=== PATIENT | male | born 1960 | race African-American/Black ===

== ENCOUNTER 2018-10-16 12:50 | Emergency (ER) | payer OTHER ==
--- NOTE | 2018-10-16 13:16 | PDOC ---
Rapid Medical Evaluation Time Seen by Provider: 10/16/18 13:12 Medical Evaluation: Allergies Allergy/AdvReac Type Severity Reaction Status Date / Time No Known Allergies Allergy Verified 01/21/16 15:58 10/16/18 13:13 This patient had brief in-person evaluation in triage cc: back pain exacerbation chronic states pain is worse unable to move. ' No recent injuries PE: NAD unlabored breathing no mid spinal tenderness, no cva tenderness orders: u/a This patient will proceed to the Ed for further evaluation Discharge Disposition - Diagnosis Back pain - Referrals - Patient Instructions - Post Discharge Activity
[2018-10-16 13:17] VITALS: TEMP 97.9; BMI 30.7
--- NOTE | 2018-10-16 15:13 | PDOC ---
History of Present Illness - General Chief Complaint: Pain, Acute Stated Complaint: LOWER BACK PAIN Time Seen by Provider: 10/16/18 13:12 - History of Present Illness Initial Comments: The pt is a 58M w/ a history of HTN, GERD, COPD, chronic back pain 2/2 slipped disc, reported cardiac arrest x2 s/p ROSC who presents for evaluation of 2 days of R back/flank pain. He reports the pain is not typical of his normal back pain. It is sharp/cramping, non-radiating, intermittent, non-positional, is not exacerbated or alleviated by anything he can identify. Denies fevers/chills, N/V/C/D, dizziness, chest pain, dysuria, hematuria, blood in his stool, or changes in sensation. PMH: HTN, GERD, COPD PSH: VIHR x4 Allergies: Denies SH: 1/2 ppd tobacco, almost daily EtOH use (Gin today) endorses shakes but denies withdraw seizures, denies drug use 10/16/18 15:13 Past History - Past Medical History Allergies/Adverse Reactions: Allergies Allergy/AdvReac Type Severity Reaction Status Date / Time No Known Allergies Allergy Verified 01/21/16 15:58 Home Medications: Ambulatory Orders Amlodipine Besylate 10 mg PO DAILY #14 tablet 02/17/15 Aspirin [ASA -] 81 mg PO DAILY 02/17/15 Hydrochlorothiazide 25 mg PO DAILY #14 tablet 02/17/15 Omeprazole [Prilosec (RX)] 20 mg PO DAILY #14 capsule 02/17/15 Ramipril 5 mg PO DAILY #14 capsule 02/17/15 COPD: No GI Disorders: Yes (acid reflux) HTN: Yes Other medical history: herniated disc - Surgical History Abdominal Surgery: Yes (umbilical hernia) Appendectomy: Yes - Immunization History Immunization Up to Date: Yes - Suicide/Smoking/Psychosocial Hx Smoking History: Never smoked Have you smoked in the past 12 months: No Number of Cigarettes Smoked Daily: 20 Information on smoking cessation initiated: No 'Breaking Loose' booklet given: 01/21/16 Hx Alcohol Use: No Drug/Substance Use Hx: No Substance Use Type: Alcohol Review of Systems - Review of Systems Able to Perform ROS?: Yes Comments:: GENERAL/CONSTITUTIONAL: No fever or chills. No weakness HEAD, EYES, EARS, NOSE AND THROAT: No change in vision. No ear pain or discharge. No sore throat CARDIOVASCULAR: No chest pain or shortness of breath RESPIRATORY: Denies cough, hemoptysis GASTROINTESTINAL: No nausea, vomiting, diarrhea or constipation GENITOURINARY: No dysuria, frequency, or change in urination MUSCULOSKELETAL: +chronic back pain SKIN: No rash NEUROLOGIC: No headache, vertigo, loss of consciousness, or change in strength/ sensation ENDOCRINE: No increased thirst. No abnormal weight change HEMATOLOGIC/LYMPHATIC: No anemia, easy bleeding, or history of blood clots ALLERGIC/IMMUNOLOGIC: No hives or skin allergy 10/16/18 15:12 Is the patient limited Italian proficient: No *Physical Exam - Vital Signs Last Vital Signs Temp Pulse Resp BP Pulse Ox 97.9 F 95 H 16 119/78 100 10/16/18 13:13 10/16/18 13:13 10/16/18 13:13 10/16/18 13:13 10/16/18 13:13 - Physical Exam Comments: GENERAL: Awake, alert, and oriented to person/place/time, in no acute distress HEAD: No signs of trauma, normocephalic, atraumatic EYES: PERRLA, EOMI, sclera anicteric, conjunctiva clear ENT: Hearing grossly normal, nares patent, oropharynx clear without exudates. Moist mucosa LUNGS: No distress, speaks full sentences, clear to auscultation bilaterally HEART: Regular rate and rhythm, normal S1 and S2, no murmurs appreciated, peripheral pulses normal and equal bilaterally ABDOMEN: soft, protuberant, abdominal diastasis, R flank TTP, no CVA TTP b/l EXTREMITIES: Normal inspection, Normal range of motion, no edema. No clubbing or cyanosis NEUROLOGICAL: Cranial nerves II through XII grossly intact. Normal speech, no focal sensorimotor deficits SKIN: Warm, Dry 10/16/18 15:12 ED Treatment Course - LABORATORY CBC & Chemistry Diagram: 10/16/18 16:10 10/16/18 16:10 Medical Decision Making - Medical Decision Making The pt is a 58M w/ a history of HTN, HLD, COPD, previous cardiac arrest x2, and chronic low back pain who presents for evaluation of new-onset back pain for approximately 2 weeks that is more acute over the last 2 days. Ddx includes nephrolithiasis, UTI, pyelonephritis, cholecystitis/cholelithiasis , AD, AAA ED Course CMP, CBC, UA, UCx CT Spiral Ofirmev 10/16/18 16:16 UA w/o hematuria or evidence of UTI 10/16/18 16:31 CT A&P w/o contrast 10/16/18 Impression: There is no evidence of hydroureteronephrosis, renal or ureteral stone, bilaterally. No gross urinary bladder stone or wall thickening is identified. Enlarged prostate gland. Diverticulosis coli without evidence of acute diverticulitis. Small hiatus hernia. Nonvisualization of the appendix. 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 that were prescribed by his PCP that are waiting at his pharmacy Discharge instructions and return precautions given Pt in agreement and verbalized understanding Dispo: home 10/16/18 18:14 *DC/Admit/Observation/Transfer Diagnosis at time of Disposition: Back pain Qualifiers: Back pain location: thoracic back pain Chronicity: acute Back pain laterality: right Qualified Code(s): M54.6 - Pain in thoracic spine - Discharge Dispostion Disposition: HOME Condition at time of disposition: Stable Decision to Admit order: No - Referrals Referrals: [facility] [Provider Group] - Patient Instructions Printed Discharge Instructions: DI for Thoracic Back Pain Additional Instructions: You were seen in the Emergency Department for evaluation of back pain. Your labs were unremarkable and your imaging was negative for acute pathology. Be sure to fill your prescriptions, take as directed, and follow up with your primary care provider within the next week. Review the handout provided at discharge. Return to the Emergency Department if you develop fevers/chills, chest pain, shortness of breath, abdominal pain, dizziness, nausea/vomiting, pain with urination, blood in your urine or stool, worsening symptoms, or any new/concerning symptoms. - Post Discharge Activity
[2018-10-16] MEDS ORDERED: ACETAMINOPHEN 1000 MG/100 ML VIAL (NON FORMULARY) IVPB ONE (15:47)
[2018-10-16] MEDS ORDERED: ACETAMINOPHEN INJECTION 100 ML IVPB ONE (16:00)
[2018-10-16 16:03] LABS: URINE APPEARANCE CLEAR; URINE BILIRUBIN NEGATIVE (NEGATIVE); URINE COLOR YELLOW; URINE GLUCOSE (UA) NEGATIVE (NEGATIVE); URINE KETONE NEGATIVE (NEGATIVE); URINE LEUK ESTERASE NEGATIVE (NEGATIVE); URINE NITRITE NEGATIVE (NEGATIVE); URINE PROTEIN NEGATIVE (NEGATIVE); URINE UROBILINOGEN 0.2 mg/dL (0.2-1.0)
[2018-10-16 16:46] LABS: BASO % 1.1 % (0-2.0); EOS % 1.7 % (0-4.5); HEMATOCRIT 37.9 % (35.4-49); HEMOGLOBIN 12.5 GM/dL (11.7-16.9); LYMPH % 54.6 % (8-40); MEAN CELL VOLUME 78.6 fl (80-96); MEAN PLT VOLUME 8.4 fl (7.5-11.1); MONO % 13.9 % (3.8-10.2); NEUT % 28.7 % (42.8-82.8); PLATELET COUNT 291 K/MM3 (134-434); RBC 4.82 M/mm3 (4.00-5.60); RDW 20.9 % (11.9-15.9); WHITE BLOOD COUNT 3.7 K/mm3 (4.0-10.0)
[2018-10-16 16:49] LABS: ALBUMIN 3.6 g/dl (3.4-5.0); BILIRUBIN,TOTAL 0.2 mg/dL (0.2-1); BLOOD UREA NITROGEN 12.2 mg/dL (7-18); CALCIUM 8.7 mg/dL (8.5-10.1); CREATININE 1.2 mg/dL (0.55-1.3); POTASSIUM 3.5 mmol/L (3.5-5.1); TOT PROT 8.1 g/dl (6.4-8.2)
--- NOTE | 2018-10-16 17:39 | PDOC ---
Documentation entered by Zoie Wisdom SCRIBE, acting as scribe for Alcides Luna MD. Alcides Luna MD: This documentation has been prepared by the Alyx licona Brenda, SCRIBE, under my direction and personally reviewed by me in its entirety. I confirm that the documentation accurately reflects all work, treatment, procedures, and medical decision making performed by me. Attending Attestation - Resident Resident Name: ElanchemoNiko - ED Attending Attestation I have performed the following: I have examined & evaluated the patient, The case was reviewed & discussed with the resident, I agree w/resident's findings & plan, Exceptions are as noted - HPI HPI: 10/16/18 16:56 The patient is a 58 year old male, with a significant PMH of HTN, GERD, COPD, chronic back pain due to a slipped disc and cardiac arrest x2 (unclear cause) who presents to the emergency department with 2 weeks of intermittent right flank/back pain that got worse this morning. He reports the pain to be sharp/ cramping, non-radiating nor non-positional. The patient reports the pain to have no aggravating or alleviating factors. He also reports this pain to be different and not associated with his regular chronic back pain which is usually right in the middle of his back. The patient denies chest pain, shortness of breath, headache, focal weakness/ numbness or dizziness. Denies fever, chills, nausea, vomiting, diarrhea and constipation. Denies dysuria, frequency, urgency and hematuria. Allergies: NKA Past surgical history: VIHR x4 Social history: 1 to 2 packs per day of tobacco, almost daily EtOH use (Gin today) endorses shakes but denies withdrawal seizures. No drug use. - Physicial Exam PE: 10/16/18 16:57 GENERAL: Awake, alert, and fully oriented, in no acute distress HEAD: No signs of trauma EYES: PERRLA, EOMI, sclera anicteric, conjunctiva clear ENT: Auricles normal inspection, hearing grossly normal, nares patent, oropharynx clear without exudates. Moist mucosa NECK: Normal ROM, supple, no lymphadenopathy, JVD, or masses LUNGS: Breath sounds equal, clear to auscultation bilaterally. No wheezes, and no crackles HEART: Regular rate and rhythm, normal S1 and S2, no murmurs, rubs or gallops ABDOMEN: Soft, nontender, normoactive bowel sounds. No guarding, no rebound. No masses EXTREMITIES: Normal range of motion, no edema. No clubbing or cyanosis. No cords , erythema, or tenderness BACK: No midline spinal tenderness in cervical/thoracic/lumbar region NEUROLOGICAL: Normal speech, cranial nerves intact, negative pronator drift, 5/ 5 strength in all 4 extremities, normal sensation to light touch in all 4 extremities, normal cerebellar exam, normal gait, normal reflexes and tone SKIN: Warm, Dry, normal turgor, no rashes or lesions noted. - Medical Decision Making 10/16/18 16:29 58yo M presents to the ED with 1 weeks of R sided flank pain that became suddenly worse this morning Vitals wnl Exam with no CVAT, pt appears comfortable DDx includes renal colic vs MSK pain vs aortic dissection Low likelihood aortic dissection as BP in both LE and pulses equal, pain has been ongoing for 2 weeks, and BP is wnl Will obtain labs, UA, CTAP non con, and reassess 10/16/18 17:38 Labs/UA wnl CTAP done, read pending Pain well controlled, pt well appearing
[2018-10-16 18:40] VITALS: BP 122/71; PULSE 89
[2018-10-16 22:00] LABS: ANISOCYTOSIS 1+; TARGET CELLS FEW
== END 2018-10-16 18:30 | disposition home or self-care (01) ==
LOC: JER 12:50
PROC: 3E033NZ Introduction of Analgesics, Hypnotics, Sedatives into Peripheral Vein, Percutaneous Approach (ICD-10-PCS; principal; 2018-10-16)
DX: M51.27 Other intervertebral disc displacement, lumbosacral region (principal); M54.6 Pain in thoracic spine; I10 Essential (primary) hypertension; E78.5 Hyperlipidemia, unspecified; J44.9 Chronic obstructive pulmonary disease, unspecified
CPT/HCPCS: 36415; 74176-TC; 80053; 81003; 85025; 87086; 96374; 99283-25; J0131

== ENCOUNTER 2020-03-21 16:20 | Inpatient (IN) | payer OTHER ==
[2020-03-21 19:12] LABS: BASO % 2.4 % (0-2.0); EOS % 0.8 % (0-4.5); HEMATOCRIT 41.9 % (35.4-49); HEMOGLOBIN 14.3 GM/dL (11.7-16.9); LYMPH % 7.8 % (8-40); MCH 32.3 pg (25.7-33.7); MEAN CELL VOLUME 94.9 fl (80-96); MEAN PLT VOLUME 9.9 fl (7.5-11.1); PLATELET COUNT 270 K/MM3 (134-434); RBC 4.41 M/mm3 (4.00-5.60); WHITE BLOOD COUNT 9.2 K/mm3 (4.0-10.0)
[2020-03-21 19:15] LABS: INR 1.15 (0.83-1.09); PROTHROMBIN TIME (PATIENT) 13.8 SEC (9.7-13.0)
[2020-03-21 19:18] LABS: ACTIVATED PTT 31.7 SECONDS (25.2-36.5)
[2020-03-21 19:36] LABS: CHLORIDE 97 mmol/L (98-107); SODIUM 137 mmol/L (136-145)
[2020-03-21 19:40] LABS: CALCIUM 9.6 mg/dL (8.5-10.1)
[2020-03-21 19:41] LABS: ALBUMIN 2.8 g/dl (3.4-5.0); BLOOD UREA NITROGEN 12.2 mg/dL (7-18); CO2 31 mmol/L (21-32); GLUCOSE,RANDOM 101 mg/dL (74-106)
[2020-03-21] MEDS ORDERED: SODIUM CHLORIDE 0.9% 500 ML INFUS.BAG IV ONE (19:41)
[2020-03-21 19:43] LABS: CREATININE 1.1 mg/dL (0.55-1.3); SGOT/AST 453 U/L (15-37); SGPT/ALT 183 U/L (13-61)
[2020-03-21 19:45] LABS: BILIRUBIN,TOTAL 1.4 mg/dL (0.2-1); TOT PROT 7.5 g/dl (6.4-8.2)
[2020-03-21 19:46] LABS: ALK PHOS 222 U/L (45-117)
[2020-03-21] MEDS ORDERED: AZITHROMYCIN IVPB 500 MG in DEXTROSE 5%-WATER - 250 ML IVPB ONE (19:55)
[2020-03-21] MEDS ORDERED: DEXAMETHASONE SOD PHOSPHATE 20 MG/5 ML VIAL IVPB ONE (19:56)
[2020-03-21] MEDS ORDERED: AZITHROMYCIN IVPB 500 MG/250 ML BAG IVPB ONE (20:07)
[2020-03-21] MEDS ORDERED: DEXAMETHASONE SOD PHOSPHATE 10 MG/1 ML VIAL ONE (20:07)
[2020-03-21 20:23] LABS: LDH 436 U/L (87-246)
[2020-03-21 20:24] LABS: ANION GAP 9 MMOL/L (8-16)
[2020-03-21 20:25] LABS: POTASSIUM 2.7 mmol/L (3.5-5.1)
[2020-03-21] MEDS ORDERED: POTASSIUM CHLORIDE TABS 20 MEQ TABLET.ER (FP) PO ONE ×2 (20:26→21:49)
[2020-03-21] MEDS ORDERED: MAGNESIUM SULF 50% (8.12 MEQ/2 ML-1 GM VIAL) IVPB ONE (20:26)
[2020-03-21] MEDS ORDERED: MAGNESIUM SULFATE IN WATER 2 GM/50 ML IVPB IVPB ONE (21:49)
[2020-03-21] MEDS ORDERED: CEFTRIAXONE 1 GM/50 ML BAG ONE (23:03)
[2020-03-21] MEDS ORDERED: ZINC SULFATE 220 MG CAPSULE (FP) ONE (23:03)
[2020-03-21] MEDS: ZINC SULFATE 220 MG CAPSULE (FP) PO SCH (23:11)
[2020-03-21] MEDS: CEFTRIAXONE 1 GM in DEXTROSE 5%-WATER - 50 ML IVPB SCH (23:11)
[2020-03-22] MEDS: KCL 10 MEQ IVPB 10 MEQ/100 ML INFUS.BAG IVPB SCH ×3 (00:14→02:08)
[2020-03-22] MEDS: ENOXAPARIN NA (PORCINE) 80 MG/0.8 ML DISP.SYRIN SQ SCH ×3 (00:14→21:47)
[2020-03-22 07:37] LABS: BASO % 0.2 % (0-2.0); HEMATOCRIT 40.8 % (35.4-49); HEMOGLOBIN 13.7 GM/dL (11.7-16.9); LYMPH % 7.5 % (8-40); MCH 32.6 pg (25.7-33.7); MCHC 33.6 g/dl (32.0-35.9); MEAN CELL VOLUME 96.9 fl (80-96); MEAN PLT VOLUME 10.1 fl (7.5-11.1); MONO % 4.4 % (3.8-10.2); NEUT % 87.9 % (42.8-82.8); PLATELET COUNT 264 K/MM3 (134-434); RBC 4.21 M/mm3 (4.00-5.60); RDW 13.3 % (11.9-15.9); WHITE BLOOD COUNT 6.9 K/mm3 (4.0-10.0)
[2020-03-22 07:54] LABS: ALBUMIN 2.6 g/dl (3.4-5.0); BLOOD UREA NITROGEN 10.8 mg/dL (7-18); CALCIUM 8.7 mg/dL (8.5-10.1); MAGNESIUM 2.2 mg/dL (1.8-2.4)
[2020-03-22 07:59] LABS: BILIRUBIN,TOTAL 1.4 mg/dL (0.2-1); TOT PROT 7.1 g/dl (6.4-8.2)
[2020-03-22 08:08] LABS: POTASSIUM 2.9 mmol/L (3.5-5.1)
[2020-03-22 08:09] LABS: PHOSPHOROUS 1.1 mg/dL (2.5-4.9)
[2020-03-22] MEDS ORDERED: cefTRIAXone SODIUM 1 GM VIAL ONE (09:31)
[2020-03-22] MEDS ORDERED: DEXTROSE 5%-WATER - 50 ML IVPB ONE (09:31)
[2020-03-22] MEDS ORDERED: PT OWN MED DRAWER 7, Y5N ONE ×4 (09:31→21:39)
[2020-03-22] MEDS: CEFTRIAXONE 1 GM in DEXTROSE 5%-WATER - 50 ML IVPB SCH (09:38)
[2020-03-22] MEDS: THIAMINE HCL 200 MG/2 ML VIAL IVPB SCH (09:39)
[2020-03-22] MEDS: ZINC SULFATE 220 MG CAPSULE (FP) PO SCH ×2 (09:39→21:49)
[2020-03-22] MEDS: FOLIC ACID 1 MG TABLET (FP) PO SCH (09:39)
[2020-03-22] MEDS: CHOLECALCIFEROL (VIT D3) 1,000 UNIT (25 MCG) TABLET PO SCH (09:39)
[2020-03-22] MEDS ORDERED: DEXAMETHASONE SOD PHOSPHATE 10 MG/1 ML VIAL IVPB ONE (10:00)
[2020-03-22] MEDS ORDERED: POTASSIUM PHOSPHATE 45 MM in SODIUM CHLORIDE 500 ML IVPB ONE (10:00)
[2020-03-22] MEDS ORDERED: ENOXAPARIN NA (PORCINE) 80 MG/0.8 ML DISP.SYRIN SQ SCH (10:00)
[2020-03-22] MEDS ORDERED: CHOLECALCIFEROL (VIT D3) 1,000 UNIT (25 MCG) TABLET PO SCH (10:00)
[2020-03-22] MEDS ORDERED: ASCORBIC ACID 250 MG TABLET (FP) PO SCH (10:00)
[2020-03-22] MEDS ORDERED: AZITHROMYCIN IVPB 250 MG in DEXTROSE 5%-WATER - 250 ML IVPB SCH (10:00)
[2020-03-22] MEDS ORDERED: HYDROCHLOROTHIAZIDE 12.5 MG CAPSULE (FP) PO SCH (10:00)
[2020-03-22] MEDS ORDERED: ALBUTEROL SO4 HFA INHALER IH PRN (17:36)
[2020-03-22] MEDS: amLODIPine BESYLATE 10 MG TABLET (FP) PO SCH (17:53)
[2020-03-22] MEDS: ATORVASTATIN CA 80 MG TABLET (FP) PO SCH (21:48)
[2020-03-22] MEDS: guaiFENesin 600 MG TABLET.ER (FP) PO SCH (21:48)
[2020-03-22] MEDS: GABAPENTIN 400 MG CAPSULE PO SCH (21:48)
[2020-03-23] MEDS ORDERED: PT OWN MED DRAWER 7, Y5N ONE ×3 (05:23→22:20)
[2020-03-23] MEDS: GABAPENTIN 400 MG CAPSULE PO SCH ×3 (05:32→22:44)
[2020-03-23 07:21] LABS: BASO % 0.1 % (0-2.0); HEMATOCRIT 38.3 % (35.4-49); HEMOGLOBIN 13.1 GM/dL (11.7-16.9); LYMPH % 6.7 % (8-40); MCH 33.2 pg (25.7-33.7); MCHC 34.2 g/dl (32.0-35.9); MEAN PLT VOLUME 10.1 fl (7.5-11.1); MONO % 10.9 % (3.8-10.2); NEUT % 82.3 % (42.8-82.8); PLATELET COUNT 289 K/MM3 (134-434); RBC 3.95 M/mm3 (4.00-5.60); RDW 13.5 % (11.9-15.9); WHITE BLOOD COUNT 14.3 K/mm3 (4.0-10.0)
[2020-03-23 07:54] LABS: ALBUMIN 2.4 g/dl (3.4-5.0); CALCIUM 7.9 mg/dL (8.5-10.1)
[2020-03-23 07:55] LABS: BLOOD UREA NITROGEN 12.4 mg/dL (7-18); MAGNESIUM 1.9 mg/dL (1.8-2.4)
[2020-03-23 07:58] LABS: BILIRUBIN,TOTAL 0.7 mg/dL (0.2-1); CREATININE 0.9 mg/dL (0.55-1.3); PHOSPHOROUS 3.2 mg/dL (2.5-4.9); TOT PROT 6.6 g/dl (6.4-8.2)
[2020-03-23 08:39] LABS: POTASSIUM 2.7 mmol/L (3.5-5.1)
[2020-03-23] MEDS ORDERED: POTASSIUM CHLORIDE TABS 20 MEQ TABLET.ER (FP) PO ONE (09:04)
[2020-03-23] MEDS ORDERED: DEXTROSE 5%-WATER - 50 ML IVPB ONE (09:25)
[2020-03-23] MEDS ORDERED: cefTRIAXone SODIUM 1 GM VIAL ONE (09:25)
[2020-03-23] MEDS: THIAMINE HCL 200 MG/2 ML VIAL IVPB SCH (09:43)
[2020-03-23] MEDS: FOLIC ACID 1 MG TABLET (FP) PO SCH (09:44)
[2020-03-23] MEDS: CHOLECALCIFEROL (VIT D3) 1,000 UNIT (25 MCG) TABLET PO SCH (09:44)
[2020-03-23] MEDS: amLODIPine BESYLATE 10 MG TABLET (FP) PO SCH (09:44)
[2020-03-23] MEDS: guaiFENesin 600 MG TABLET.ER (FP) PO SCH ×2 (09:44→22:44)
[2020-03-23] MEDS: ZINC SULFATE 220 MG CAPSULE (FP) PO SCH ×2 (09:44→22:44)
[2020-03-23] MEDS: ASCORBIC ACID 500 MG TABLET (FP) PO SCH (09:44)
[2020-03-23] MEDS: KCL 10 MEQ IVPB 10 MEQ/100 ML INFUS.BAG IVPB SCH ×3 (09:45→12:15)
[2020-03-23] MEDS: CEFTRIAXONE 1 GM in DEXTROSE 5%-WATER - 50 ML IVPB SCH (09:45)
[2020-03-23] MEDS: ENOXAPARIN NA (PORCINE) 80 MG/0.8 ML DISP.SYRIN SQ SCH ×2 (09:45→22:44)
[2020-03-23] MEDS: POTASSIUM CHLORIDE TABS 20 MEQ TABLET.ER (FP) PO SCH ×2 (11:11→22:44)
[2020-03-23] MEDS: AZITHROMYCIN IVPB 500 MG/250 ML BAG IVPB SCH (11:12)
[2020-03-23 11:44] VITALS: BMI 28.6
[2020-03-23] MEDS: methylPREDNISolone NA SUCC 40 MG/1 ML VIAL IVPUSH SCH ×2 (13:59→17:20)
[2020-03-23] MEDS: ATORVASTATIN CA 80 MG TABLET (FP) PO SCH (22:44)
[2020-03-24] MEDS: methylPREDNISolone NA SUCC 40 MG/1 ML VIAL IVPUSH SCH ×3 (01:15→17:14)
[2020-03-24] MEDS ORDERED: PT OWN MED DRAWER 7, Y5N ONE ×4 (06:14→21:22)
[2020-03-24] MEDS: GABAPENTIN 400 MG CAPSULE PO SCH ×3 (06:16→21:27)
[2020-03-24 06:55] LABS: BASO % 0.3 % (0-2.0); HEMATOCRIT 41.6 % (35.4-49); HEMOGLOBIN 13.7 GM/dL (11.7-16.9); LYMPH % 5.8 % (8-40); MCH 32.3 pg (25.7-33.7); MEAN CELL VOLUME 97.9 fl (80-96); MEAN PLT VOLUME 9.9 fl (7.5-11.1); MONO % 6.2 % (3.8-10.2); NEUT % 87.7 % (42.8-82.8); PLATELET COUNT 315 K/MM3 (134-434); RBC 4.25 M/mm3 (4.00-5.60); RDW 13.4 % (11.9-15.9); WHITE BLOOD COUNT 16.1 K/mm3 (4.0-10.0)
[2020-03-24 07:05] LABS: POTASSIUM 4.4 mmol/L (3.5-5.1)
[2020-03-24 07:07] LABS: BLOOD UREA NITROGEN 13.6 mg/dL (7-18); CALCIUM 8.9 mg/dL (8.5-10.1)
[2020-03-24 07:08] LABS: ALBUMIN 2.6 g/dl (3.4-5.0)
[2020-03-24 07:11] LABS: CREATININE 0.9 mg/dL (0.55-1.3); PHOSPHOROUS 2.4 mg/dL (2.5-4.9)
[2020-03-24 07:13] LABS: TOT PROT 7.1 g/dl (6.4-8.2)
[2020-03-24] MEDS ORDERED: NAPH,MB-DB/K PH,MBDB POWDER PACKET PO ONE (07:22)
[2020-03-24] MEDS ORDERED: SODIUM PHOSPHATE - 15 MM in SODIUM CHLORIDE 250 ML IVPB ONE (07:28)
[2020-03-24 08:58] LABS: ERYTHROCYTE SEDIMENTATION RATE 56 mm/hr (0-20)
[2020-03-24] MEDS ORDERED: cefTRIAXone SODIUM 1 GM VIAL ONE (09:18)
[2020-03-24] MEDS ORDERED: DEXTROSE 5%-WATER - 50 ML IVPB ONE (09:18)
[2020-03-24] MEDS: CEFTRIAXONE 1 GM in DEXTROSE 5%-WATER - 50 ML IVPB SCH (09:33)
[2020-03-24] MEDS: POTASSIUM CHLORIDE TABS 20 MEQ TABLET.ER (FP) PO SCH ×2 (09:34→21:28)
[2020-03-24] MEDS: ENOXAPARIN NA (PORCINE) 80 MG/0.8 ML DISP.SYRIN SQ SCH ×2 (09:34→21:28)
[2020-03-24] MEDS: AZITHROMYCIN IVPB 500 MG/250 ML BAG IVPB SCH (09:34)
[2020-03-24] MEDS: CHOLECALCIFEROL (VIT D3) 1,000 UNIT (25 MCG) TABLET PO SCH (09:34)
[2020-03-24] MEDS: guaiFENesin 600 MG TABLET.ER (FP) PO SCH ×2 (09:36→21:27)
[2020-03-24] MEDS: amLODIPine BESYLATE 10 MG TABLET (FP) PO SCH (09:36)
[2020-03-24] MEDS: ASCORBIC ACID 500 MG TABLET (FP) PO SCH (09:36)
[2020-03-24] MEDS: FOLIC ACID 1 MG TABLET (FP) PO SCH (09:36)
[2020-03-24] MEDS: ZINC SULFATE 220 MG CAPSULE (FP) PO SCH ×2 (09:36→21:27)
[2020-03-24] MEDS: THIAMINE HCL 200 MG/2 ML VIAL IVPB SCH (09:37)
[2020-03-24] MEDS: ATORVASTATIN CA 80 MG TABLET (FP) PO SCH (21:27)
[2020-03-25] MEDS: methylPREDNISolone NA SUCC 40 MG/1 ML VIAL IVPUSH SCH ×2 (02:17→10:20)
[2020-03-25] MEDS ORDERED: PT OWN MED DRAWER 7, Y5N ONE ×2 (05:59→13:47)
[2020-03-25] MEDS: GABAPENTIN 400 MG CAPSULE PO SCH ×2 (06:03→13:57)
[2020-03-25 07:14] LABS: POTASSIUM 5.1 mmol/L (3.5-5.1)
[2020-03-25 07:22] LABS: ALBUMIN 2.5 g/dl (3.4-5.0)
[2020-03-25 07:23] LABS: BLOOD UREA NITROGEN 14.9 mg/dL (7-18)
[2020-03-25 07:24] LABS: BILIRUBIN,TOTAL 0.5 mg/dL (0.2-1); CALCIUM 8.6 mg/dL (8.5-10.1); MAGNESIUM 1.5 mg/dL (1.8-2.4); TOT PROT 6.7 g/dl (6.4-8.2)
[2020-03-25 07:26] LABS: CREATININE 0.9 mg/dL (0.55-1.3); PHOSPHOROUS 3.6 mg/dL (2.5-4.9)
[2020-03-25 07:32] LABS: BASO % 0.2 % (0-2.0); EOS % 0.1 % (0-4.5); HEMATOCRIT 38.3 % (35.4-49); HEMOGLOBIN 12.8 GM/dL (11.7-16.9); MCH 32.5 pg (25.7-33.7); MCHC 33.4 g/dl (32.0-35.9); MEAN CELL VOLUME 97.6 fl (80-96); MONO % 8.2 % (3.8-10.2); NEUT % 86.5 % (42.8-82.8); PLATELET COUNT 298 K/MM3 (134-434); RBC 3.92 M/mm3 (4.00-5.60); RDW 13.5 % (11.9-15.9); WHITE BLOOD COUNT 17.1 K/mm3 (4.0-10.0)
[2020-03-25] MEDS ORDERED: MAGNESIUM SULF 50% (8.12 MEQ/2 ML-1 GM VIAL) IVPB ONE (09:05)
[2020-03-25 10:02] LABS: ERYTHROCYTE SEDIMENTATION RATE 62 mm/hr (0-20)
[2020-03-25] MEDS ORDERED: cefTRIAXone SODIUM 1 GM VIAL ONE (10:11)
[2020-03-25] MEDS ORDERED: DEXTROSE 5%-WATER - 50 ML IVPB ONE (10:11)
[2020-03-25] MEDS: CEFTRIAXONE 1 GM in DEXTROSE 5%-WATER - 50 ML IVPB SCH (10:20)
[2020-03-25] MEDS: ZINC SULFATE 220 MG CAPSULE (FP) PO SCH (10:21)
[2020-03-25] MEDS: AZITHROMYCIN IVPB 500 MG/250 ML BAG IVPB SCH (10:21)
[2020-03-25] MEDS: amLODIPine BESYLATE 10 MG TABLET (FP) PO SCH (10:21)
[2020-03-25] MEDS: guaiFENesin 600 MG TABLET.ER (FP) PO SCH (10:21)
[2020-03-25] MEDS: CHOLECALCIFEROL (VIT D3) 1,000 UNIT (25 MCG) TABLET PO SCH (10:22)
[2020-03-25] MEDS: ENOXAPARIN NA (PORCINE) 80 MG/0.8 ML DISP.SYRIN SQ SCH (10:22)
[2020-03-25] MEDS: ASCORBIC ACID 500 MG TABLET (FP) PO SCH (10:22)
[2020-03-25] MEDS: FOLIC ACID 1 MG TABLET (FP) PO SCH (10:22)
[2020-03-25] MEDS: THIAMINE HCL 200 MG/2 ML VIAL IVPB SCH (11:30)
[2020-03-25 11:58] LABS: ANISOCYTOSIS 1+; MACROCYTOSIS 0; PLATELET ESTIMATE NORMAL
[2020-03-25] MEDS ORDERED: predniSONE 20 MG TABLET (UD) PO ONE (14:28)
[2020-03-25 15:09] VITALS: BP 127/68; PULSE 76; TEMP 97.2
== END 2020-03-25 18:56 | disposition home health service (06) | DRG 137 ==
LOC: JER 16:20 → JERFT 16:20 → JERBED 20:19 → J4S 23:50
PROVIDERS: ADMIT Internal Medicine; ATTEND Internal Medicine
DX: U07.1 COVID-19 (principal); E87.6 Hypokalemia; F10.239 Alcohol dependence with withdrawal, unspecified; R74.01 Elevation of levels of liver transaminase levels; E88.09 Other disorders of plasma-protein metabolism, not elsewhere classified; F17.210 Nicotine dependence, cigarettes, uncomplicated; I10 Essential (primary) hypertension; J44.1 Chronic obstructive pulmonary disease with (acute) exacerbation; J12.89 Other viral pneumonia; K70.10 Alcoholic hepatitis without ascites; D72.829 Elevated white blood cell count, unspecified; E78.5 Hyperlipidemia, unspecified; E83.39 Other disorders of phosphorus metabolism; K76.0 Fatty (change of) liver, not elsewhere classified
CPT/HCPCS: 36415; 71045-TC-FY; 71275-TC; 80053; 82550; 82728; 83615; 83735; 84100; 84132; 84484; 85025; 85379; 85610; 85651; 85730; 86140; 86803; 87340; 87899; 93005; 93010; 94761; 99285-25; J1100; Q9967

== ENCOUNTER 2021-03-23 17:44 | Observation (INO) | payer OTHER ==
[2021-03-23] MEDS ORDERED: DIPHTH,PERTUSS(ACELL),TET 0.5 ML DISP.SYRIN IM ONE ×2 (19:29→19:38)
[2021-03-23] MEDS ORDERED: ALBUTEROL SO4 2.5/IPRATROPIUM 0.5 INH SOL 3 ML VIAL.NEB. NEB ONE (19:38)
[2021-03-23] MEDS ORDERED: ALBUTEROL SO4 HFA INHALER IH ONE ×2 (19:55→20:18)
[2021-03-23] MEDS: ALBUTEROL SO4 2.5/IPRATROPIUM 0.5 INH SOL 3 ML VIAL.NEB. NEB SCH ×2 (20:22→21:58)
[2021-03-23 20:53] LABS: BASO % 0.5 % (0-2.0); EOS % 0.2 % (0-4.5); HEMATOCRIT 38.6 % (35.4-49); HEMOGLOBIN 13.2 GM/dL (11.7-16.9); LYMPH % 11.4 % (8-40); MCH 30.1 pg (25.7-33.7); MCHC 34.1 g/dl (32.0-35.9); MEAN CELL VOLUME 88.3 fl (80-96); MEAN PLT VOLUME 9.1 fl (7.5-11.1); MONO % 10.3 % (3.8-10.2); NEUT % 77.6 % (42.8-82.8); PLATELET COUNT 307 10^3/uL (134-434); RBC 4.38 M/mm3 (4.00-5.60); RDW 16.8 % (11.9-15.9); WHITE BLOOD COUNT 10.3 K/mm3 (4.0-10.0)
[2021-03-23 21:00] LABS: INR 1.05 (0.83-1.09); PROTHROMBIN TIME (PATIENT) 12.3 SEC (9.7-13.0)
[2021-03-23 21:02] LABS: ACTIVATED PTT 29.5 SECONDS (25.2-36.5)
[2021-03-23 21:08] LABS: CHLORIDE 92 mmol/L (98-107); SODIUM 141 mmol/L (136-145)
[2021-03-23 21:10] LABS: ALBUMIN 3.7 g/dl (3.4-5.0); ANION GAP 21 MMOL/L (8-16); BLOOD UREA NITROGEN 14.3 mg/dL (7-18); CALCIUM 9.8 mg/dL (8.5-10.1); CO2 28 mmol/L (21-32); GLUCOSE,RANDOM 73 mg/dL (74-106); MAGNESIUM 1.6 mg/dL (1.8-2.4)
[2021-03-23 21:13] LABS: SGOT/AST 156 U/L (15-37); SGPT/ALT 56 U/L (13-61)
[2021-03-23 21:14] LABS: CREATININE 1.8 mg/dL (0.55-1.3)
[2021-03-23 21:15] LABS: ALK PHOS 116 U/L (45-117); TOT PROT 8.9 g/dl (6.4-8.2)
[2021-03-23 21:17] LABS: BILIRUBIN,TOTAL 1.3 mg/dL (0.2-1)
[2021-03-23 21:19] LABS: N-TERMINAL BNP 189.2 pg/ml (5-125)
[2021-03-23] MEDS ORDERED: MAGNESIUM SULF 50% (8.12 MEQ/2 ML-1 GM VIAL) IVPB ONE (21:47)
[2021-03-23] MEDS ORDERED: MAGNESIUM SULFATE IN WATER 2 GM/50 ML IVPB IVPB ONE (21:50)
[2021-03-23 22:21] LABS: MAGNESIUM 1.6 mg/dL (1.8-2.4)
[2021-03-23] MEDS ORDERED: POTASSIUM CHLORIDE TABS 20 MEQ TABLET.ER (FP) PO ONE ×2 (22:37→22:46)
[2021-03-23] MEDS ORDERED: KCL 10 MEQ IVPB 30 MEQ/300 ML INFUS.BAG IVPB ONE (22:47)
[2021-03-23] MEDS: KCL 10 MEQ IVPB 10 MEQ/100 ML INFUS.BAG IVPB SCH (23:03)
[2021-03-24] MEDS: KCL 10 MEQ IVPB 10 MEQ/100 ML INFUS.BAG IVPB SCH ×5 (00:15→10:48)
[2021-03-24] MEDS ORDERED: FOLIC ACID INJECTION - 1 MG, THIAMINE HCL 100 MG, MULTIVIT INJECTION ADULT 10 ML in SOD... IVPB ONE (02:15)
[2021-03-24] MEDS ORDERED: ACETAMINOPHEN 325 MG TABLET (FP) PO PRN (03:16)
[2021-03-24] MEDS ORDERED: MAGNESIUM SULF 50% (8.12 MEQ/2 ML-1 GM VIAL) IVPB ONE (03:27)
[2021-03-24 03:56] VITALS: BMI 27.8
[2021-03-24] MEDS: SODIUM CHLORIDE 1,000 ML IV SCH (04:19)
[2021-03-24] MEDS: LORazepam 1 MG TABLET PO SCH ×4 (05:34→22:02)
[2021-03-24] MEDS ORDERED: HEPARIN NA (PORCINE) 5,000 UNITS/ML 1ML VIAL SQ SCH (06:00)
[2021-03-24 07:52] LABS: BASO % 0.5 % (0-2.0); EOS % 1.2 % (0-4.5); HEMATOCRIT 31.3 % (35.4-49); HEMOGLOBIN 10.5 GM/dL (11.7-16.9); LYMPH % 12.1 % (8-40); MCH 29.7 pg (25.7-33.7); MCHC 33.6 g/dl (32.0-35.9); MEAN CELL VOLUME 88.4 fl (80-96); MEAN PLT VOLUME 9.2 fl (7.5-11.1); MONO % 9.9 % (3.8-10.2); NEUT % 76.3 % (42.8-82.8); PLATELET COUNT 239 10^3/uL (134-434); RBC 3.55 M/mm3 (4.00-5.60); RDW 16.6 % (11.9-15.9); WHITE BLOOD COUNT 9.1 K/mm3 (4.0-10.0)
[2021-03-24] MEDS ORDERED: FLU VACC QS2021-22(6MOS UP)/PF 60 MCG/0.5 ML SYRINGE IM ONE (09:00)
[2021-03-24 09:24] LABS: ALBUMIN 3.4 g/dl (3.4-5.0); BILIRUBIN,TOTAL 0.2 mg/dL (0.2-1); BLOOD UREA NITROGEN 12.8 mg/dL (7-18); CALCIUM 9.2 mg/dL (8.5-10.1); CREATININE 0.6 mg/dL (0.55-1.3); MAGNESIUM 2.2 mg/dL (1.8-2.4); TOT PROT 6.7 g/dl (6.4-8.2)
[2021-03-24] MEDS ORDERED: THIAMINE HCL 100 MG TABLET (FP) PO SCH ×2 (10:00→10:39)
[2021-03-24] MEDS ORDERED: PT OWN MED DRAWER 7, Y5N ONE (10:20)
[2021-03-24] MEDS: PANTOPRAZOLE SODIUM 40 MG VIAL IVPUSH SCH (10:48)
[2021-03-24] MEDS: FOLIC ACID 1 MG TABLET (FP) PO SCH (10:48)
[2021-03-24 11:13] LABS: LIPASE 398 U/L (73-393)
[2021-03-24 11:46] LABS: PH,URINE 5.5 (5.0-8.0); URINE APPEARANCE CLEAR; URINE BILIRUBIN NEGATIVE (NEGATIVE); URINE COLOR YELLOW; URINE GLUCOSE (UA) NEGATIVE (NEGATIVE); URINE KETONE 2+ (NEGATIVE); URINE LEUK ESTERASE NEGATIVE (NEGATIVE); URINE NITRITE NEGATIVE (NEGATIVE); URINE PROTEIN TRACE (NEGATIVE)
[2021-03-24] MEDS: NICOTINE 14 MG/24 HOURS TOPICAL PATCH TD SCH (12:12)
[2021-03-24 13:20] LABS: COCAINE, UR NEGATIVE (NEGATIVE); METHADONE, UR NEGATIVE (NEGATIVE); OPIATES, URI NEGATIVE (NEGATIVE); PHENCYCLIDINE,URINE NEGATIVE (NEGATIVE); URINE AMPHETAMINES NEGATIVE (NEGATIVE); URINE BARBITURATES NEGATIVE (NEGATIVE); URINE BENZODIAZEPINES NEGATIVE (NEGATIVE)
[2021-03-24 15:15] LABS: PHOSPHOROUS 2.4 mg/dL (2.5-4.9)
[2021-03-25] MEDS: LORazepam 1 MG TABLET PO PRN ×2 (02:02→14:08)
[2021-03-25] MEDS: LORazepam 1 MG TABLET PO SCH ×2 (06:17→10:21)
[2021-03-25] MEDS: SODIUM CHLORIDE 1,000 ML IV SCH (06:18)
[2021-03-25 08:23] LABS: HEMOGLOBIN 10.5 GM/dL (11.7-16.9); MCHC 33.9 g/dl (32.0-35.9); MEAN CELL VOLUME 88.6 fl (80-96); PLATELET COUNT 226 10^3/uL (134-434); RDW 16.5 % (11.9-15.9); WHITE BLOOD COUNT 6.3 K/mm3 (4.0-10.0)
[2021-03-25] MEDS ORDERED: PT OWN MED DRAWER 7, Y5N ONE (09:07)
[2021-03-25] MEDS: PANTOPRAZOLE SODIUM 40 MG VIAL IVPUSH SCH (09:15)
[2021-03-25] MEDS: FOLIC ACID 1 MG TABLET (FP) PO SCH (09:15)
[2021-03-25] MEDS: NICOTINE 14 MG/24 HOURS TOPICAL PATCH TD SCH (09:16)
[2021-03-25] MEDS ORDERED: ENOXAPARIN NA (PORCINE) 40 MG/0.4 ML DISP.SYRIN SQ SCH (10:00)
[2021-03-25 12:59] LABS: ALBUMIN 2.5 g/dl (3.4-5.0); BILIRUBIN,TOTAL 0.6 mg/dL (0.2-1); BLOOD UREA NITROGEN 9.1 mg/dL (7-18); CALCIUM 8.5 mg/dL (8.5-10.1); TOT PROT 6.1 g/dl (6.4-8.2)
[2021-03-25 13:56] VITALS: BP 116/79; PULSE 86; TEMP 98.1
[2021-03-26] MEDS ORDERED: LORazepam 0.5 MG TABLET PO PRN
[2021-03-26] MEDS ORDERED: LORazepam 0.5 MG TABLET PO SCH (05:00)
[2021-03-27] MEDS ORDERED: LORazepam 0.5 MG TABLET PO ONE (05:00)
[2021-03-28 17:02] LABS: HIV INTERPRETATION NEGATIVE (NEGATIVE)
== END 2021-03-25 16:18 | disposition left against medical advice (07) ==
LOC: JER 17:44 → J4S 22:37 → UNDOADMOB 22:37 → JERBED 22:37 → OBSVTOIN 03-24 03:16 → INTOOBSV 03-24 03:16 → JERBED 03-24 03:33 → J4S 03-24 03:33
PROVIDERS: ADMIT Internal Medicine
PROC: 3E0234Z Introduction of Serum, Toxoid and Vaccine into Muscle, Percutaneous Approach (ICD-10-PCS; principal; 2021-03-24)
PROC: 3E023GC Introduction of Other Therapeutic Substance into Muscle, Percutaneous Approach (ICD-10-PCS; 2021-03-24)
PROC: 3E033GC Introduction of Other Therapeutic Substance into Peripheral Vein, Percutaneous Approach (ICD-10-PCS; 2021-03-24)
PROC: 3E0337Z Introduction of Electrolytic and Water Balance Substance into Peripheral Vein, Percutaneous Approach (ICD-10-PCS; 2021-03-24)
DX: R55 Syncope and collapse (principal); F10.99 Alcohol use, unspecified with unspecified alcohol-induced disorder; R10.84 Generalized abdominal pain; E87.6 Hypokalemia; E86.0 Dehydration; I10 Essential (primary) hypertension; R19.7 Diarrhea, unspecified; R26.81 Unsteadiness on feet; N20.0 Calculus of kidney; R63.0 Anorexia; Z99.89 Dependence on other enabling machines and devices; M25.569 Pain in unspecified knee; R29.6 Repeated falls; J44.9 Chronic obstructive pulmonary disease, unspecified; G47.33 Obstructive sleep apnea (adult) (pediatric); N40.0 Benign prostatic hyperplasia without lower urinary tract symptoms; K64.9 Unspecified hemorrhoids; Z86.16 Personal history of COVID-19; H53.001 Unspecified amblyopia, right eye; S50.312A Abrasion of left elbow, initial encounter; Z29.9 Encounter for prophylactic measures, unspecified; Z88.8 Allergy status to other drugs, medicaments and biological substances; F17.210 Nicotine dependence, cigarettes, uncomplicated; D72.829 Elevated white blood cell count, unspecified; W18.39XA Other fall on same level, initial encounter; Y93.89 Activity, other specified; Y92.099 Unspecified place in other non-institutional residence as the place of occurrence of the external cause
CPT/HCPCS: 36415; 70450-TC; 71101-TC-RT-FY; 72125-TC; 73070-TC-LT-FY; 74176-TC; 76775-TC; 80053; 80061; 80307; 81003; 82550; 82607; 82746; 83690; 83735; 83880; 84100; 84132; 84425; 84443; 84484; 85025; 85027; 85610; 85730; 86780; 87045; 87046; 87177; 87209; 87389; 87798; 90471; 90686; 90715; 93005; 93010; 93306-TC; 93880-TC; 96361; 96365; 96366; 96372; 96375; 97116-GP; 97161-GP; 99285-25; C9803; G0378; J1644; U0003; U0005

== ENCOUNTER 2021-03-25 21:24 | Observation (INO) | payer OTHER ==
[2021-03-26 02:05] LABS: BASO % 0.7 % (0-2.0); EOS % 1.3 % (0-4.5); HEMOGLOBIN 11.2 GM/dL (11.7-16.9); LYMPH % 20.6 % (8-40); MCH 29.5 pg (25.7-33.7); MCHC 33.8 g/dl (32.0-35.9); MEAN CELL VOLUME 87.3 fl (80-96); MONO % 9.6 % (3.8-10.2); NEUT % 67.8 % (42.8-82.8); PLATELET COUNT 295 10^3/uL (134-434); RBC 3.79 M/mm3 (4.00-5.60); WHITE BLOOD COUNT 7.3 K/mm3 (4.0-10.0)
[2021-03-26 02:08] LABS: PH,URINE 5.5 (5.0-8.0); URINE APPEARANCE CLEAR; URINE BILIRUBIN NEGATIVE (NEGATIVE); URINE COLOR YELLOW; URINE GLUCOSE (UA) NEGATIVE (NEGATIVE); URINE KETONE TRACE (NEGATIVE); URINE LEUK ESTERASE NEGATIVE (NEGATIVE); URINE NITRITE NEGATIVE (NEGATIVE); URINE PROTEIN NEGATIVE (NEGATIVE)
[2021-03-26 03:19] LABS: ALBUMIN 3.1 g/dl (3.4-5.0); ALK PHOS 93 U/L (45-117); ANION GAP 11 MMOL/L (8-16); BILIRUBIN,TOTAL 0.6 mg/dL (0.2-1); BLOOD UREA NITROGEN 7.2 mg/dL (7-18); CALCIUM 9.1 mg/dL (8.5-10.1); CHLORIDE 103 mmol/L (98-107); CO2 27 mmol/L (21-32); CREATININE 1.2 mg/dL (0.55-1.3); GLUCOSE,RANDOM 92 mg/dL (74-106); SGOT/AST 167 U/L (15-37); SGPT/ALT 51 U/L (13-61); SODIUM 140 mmol/L (136-145); TOT PROT 7.7 g/dl (6.4-8.2)
[2021-03-26 03:25] LABS: COCAINE, UR NEGATIVE (NEGATIVE); METHADONE, UR NEGATIVE (NEGATIVE); OPIATES, URI NEGATIVE (NEGATIVE); PHENCYCLIDINE,URINE NEGATIVE (NEGATIVE); URINE AMPHETAMINES NEGATIVE (NEGATIVE); URINE BARBITURATES NEGATIVE (NEGATIVE); URINE BENZODIAZEPINES NEGATIVE (NEGATIVE)
[2021-03-26] MEDS ORDERED: FOLIC ACID INJECTION - 1 MG, THIAMINE HCL 100 MG, MULTIVIT INJECTION ADULT 10 ML in SOD... IVPB ONE (08:39)
[2021-03-26] MEDS: ASPIRIN 81 MG CHEWABLE TABLETS PO SCH (10:00)
[2021-03-26] MEDS: NICOTINE 14 MG/24 HOURS TOPICAL PATCH TD SCH (10:00)
[2021-03-26] MEDS: PANTOPRAZOLE 20 MG TABLET PO SCH (10:00)
[2021-03-26] MEDS ORDERED: ASPIRIN 81 MG CHEWABLE TABLETS ONE (10:34)
[2021-03-26] MEDS ORDERED: PANTOPRAZOLE 20 MG TABLET PO ONE (10:34)
[2021-03-26] MEDS ORDERED: GABAPENTIN 400 MG CAPSULE PO SCH (14:00)
[2021-03-26 18:41] VITALS: BMI 31.4
[2021-03-26] MEDS ORDERED: ATORVASTATIN CA 80 MG TABLET (FP) PO SCH (22:00)
[2021-03-27 08:57] VITALS: PULSE 78
[2021-03-27] MEDS: ASPIRIN 81 MG CHEWABLE TABLETS PO SCH (09:37)
[2021-03-27] MEDS: NICOTINE 14 MG/24 HOURS TOPICAL PATCH TD SCH (09:37)
[2021-03-27] MEDS: PANTOPRAZOLE 20 MG TABLET PO SCH (09:37)
[2021-03-27 13:52] VITALS: BP 120/75; TEMP 98.1
== END 2021-03-27 15:51 | disposition other institution (70) ==
LOC: JER 21:24 → JERBED 03-26 03:33 → J4W 03-26 17:24
PROVIDERS: ADMIT Internal Medicine
PROC: 3E033GC Introduction of Other Therapeutic Substance into Peripheral Vein, Percutaneous Approach (ICD-10-PCS; principal; 2021-03-26)
DX: R55 Syncope and collapse (principal); F10.920 Alcohol use, unspecified with intoxication, uncomplicated; I10 Essential (primary) hypertension; E78.5 Hyperlipidemia, unspecified; J44.9 Chronic obstructive pulmonary disease, unspecified; K21.9 Gastro-esophageal reflux disease without esophagitis; Z86.16 Personal history of COVID-19; F17.210 Nicotine dependence, cigarettes, uncomplicated
CPT/HCPCS: 36415; 70450-TC; 71045-TC-FY; 80053; 80307; 81003; 82550; 84484; 85025; 87086; 93005; 93010; 96365; 97116-GP; 97161-GP; 99285-25; C9803; G0378; U0003; U0005

== ENCOUNTER 2021-04-07 10:16 | Inpatient (IN) | payer OTHER ==
[2021-04-07 11:52] VITALS: BMI 29.4
[2021-04-07] MEDS ORDERED: MENTHOL/PHENOL 1 EACH UD MM PRN (12:39)
[2021-04-07] MEDS ORDERED: BISMUTH SUBSALICYLATE 524 MG/30 ML PO PRN (12:39)
[2021-04-07] MEDS ORDERED: ACETAMINOPHEN 325 MG TABLET (FP) PO PRN (12:39)
[2021-04-07] MEDS ORDERED: ONDANSETRON *ODT* 4 MG TABLET SL PRN (12:39)
[2021-04-07] MEDS ORDERED: MAGNESIUM CITRATE 300 ML BOTTLE PO PRN (12:39)
[2021-04-07] MEDS ORDERED: IBUPROFEN 400 MG TABLET (FP) PO PRN (12:39)
[2021-04-07] MEDS ORDERED: MAGNESIUM HYDROX 2400MG/30ML ORAL SUSPENSION 30 ML CUP PO PRN (12:39)
[2021-04-07] MEDS ORDERED: MINERAL OIL/PETROLAT/WATER TOPICAL CREAM 113 GM JAR TP PRN (12:45)
[2021-04-07] MEDS: hydrOXYzine PAMOATE 25 MG CAPSULE (FP) PO SCH ×3 (16:17→22:26)
[2021-04-07] MEDS: NICOTINE 14 MG/24 HOURS TOPICAL PATCH TD SCH (16:17)
[2021-04-07] MEDS: METHOCARBAMOL 500 MG TABLET PO PRN (16:17)
[2021-04-07] MEDS: ACETAMINOPHEN 325 MG TABLET (FP) PO PRN (16:18)
[2021-04-07] MEDS: THIAMINE HCL 100 MG TABLET (FP) PO SCH (22:26)
[2021-04-07] MEDS: MELATONIN 5 MG TABLETS PO SCH (22:26)
[2021-04-07] MEDS: MAG HYDROX/AL HYDROX/SIMETH 30 ML UNIT-DOSE CUP PO PRN (22:28)
[2021-04-08] MEDS: MAG HYDROX/AL HYDROX/SIMETH 30 ML UNIT-DOSE CUP PO PRN (05:33)
[2021-04-08] MEDS: hydrOXYzine PAMOATE 25 MG CAPSULE (FP) PO SCH ×5 (05:33→22:23)
[2021-04-08] MEDS ORDERED: LORazepam 1 MG TABLET PO PRN (08:55)
[2021-04-08] MEDS: PRENATAL VITAMINS W/ FOLIC ACID TABLET (FP) PO SCH (10:15)
[2021-04-08] MEDS: TIOTROPIUM BROMIDE 2.5 MCG (SPIRIVA) RESPIMAT INHALER IH SCH (10:16)
[2021-04-08] MEDS: PANTOPRAZOLE 20 MG TABLET PO SCH (10:18)
[2021-04-08] MEDS: amLODIPine BESYLATE 10 MG TABLET (FP) PO SCH (10:18)
[2021-04-08] MEDS: NICOTINE 14 MG/24 HOURS TOPICAL PATCH TD SCH (10:20)
[2021-04-08 10:31] LABS: HEMATOCRIT 36.5 % (35.4-49); MCH 29.7 pg (25.7-33.7); MCHC 32.8 g/dl (32.0-35.9); MEAN CELL VOLUME 90.8 fl (80-96); MEAN PLT VOLUME 9.8 fl (7.5-11.1); PLATELET COUNT 300 10^3/uL (134-434); RBC 4.02 M/mm3 (4.00-5.60); RDW 19.6 % (11.9-15.9); WHITE BLOOD COUNT 6.7 K/mm3 (4.0-10.0)
[2021-04-08] MEDS ORDERED: LORazepam 2 MG TABLET PO SCH (11:00)
[2021-04-08 11:09] LABS: CALCIUM 8.3 mg/dL (8.5-10.1)
[2021-04-08 11:10] LABS: ALBUMIN 2.8 g/dl (3.4-5.0); BLOOD UREA NITROGEN 7.3 mg/dL (7-18)
[2021-04-08 11:13] LABS: BILIRUBIN,TOTAL 0.4 mg/dL (0.2-1); CREATININE 1.3 mg/dL (0.55-1.3); TOT PROT 7.6 g/dl (6.4-8.2)
[2021-04-08] MEDS: LORazepam 1 MG TABLET PO SCH ×2 (17:42→22:22)
[2021-04-08] MEDS: ALBUTEROL SO4 HFA INHALER IH PRN (18:38)
[2021-04-08] MEDS: MELATONIN 5 MG TABLETS PO SCH (22:22)
[2021-04-08] MEDS: THIAMINE HCL 100 MG TABLET (FP) PO SCH (22:25)
[2021-04-09] MEDS: LORazepam 1 MG TABLET PO SCH ×4 (05:36→22:16)
[2021-04-09] MEDS: hydrOXYzine PAMOATE 25 MG CAPSULE (FP) PO SCH ×5 (05:37→22:17)
[2021-04-09] MEDS: ACETAMINOPHEN 325 MG TABLET (FP) PO PRN (05:37)
[2021-04-09] MEDS: TIOTROPIUM BROMIDE 2.5 MCG (SPIRIVA) RESPIMAT INHALER IH SCH (11:02)
[2021-04-09] MEDS: PRENATAL VITAMINS W/ FOLIC ACID TABLET (FP) PO SCH (11:02)
[2021-04-09] MEDS: PANTOPRAZOLE 20 MG TABLET PO SCH (11:02)
[2021-04-09] MEDS: amLODIPine BESYLATE 10 MG TABLET (FP) PO SCH (11:02)
[2021-04-09] MEDS: METHOCARBAMOL 500 MG TABLET PO PRN (11:02)
[2021-04-09] MEDS: NICOTINE 14 MG/24 HOURS TOPICAL PATCH TD SCH (11:05)
[2021-04-09] MEDS: ALBUTEROL SO4 HFA INHALER IH PRN (11:06)
[2021-04-09] MEDS ORDERED: SUCRALFATE 1 GM TABLET (FP) PO ONE (14:00)
[2021-04-09] MEDS: THIAMINE HCL 100 MG TABLET (FP) PO SCH (22:16)
[2021-04-09] MEDS: MELATONIN 5 MG TABLETS PO SCH (22:17)
[2021-04-10] MEDS: LORazepam 1 MG TABLET PO SCH ×4 (05:24→22:45)
[2021-04-10] MEDS: hydrOXYzine PAMOATE 25 MG CAPSULE (FP) PO SCH ×5 (05:25→22:45)
[2021-04-10] MEDS: amLODIPine BESYLATE 10 MG TABLET (FP) PO SCH (10:39)
[2021-04-10] MEDS: PRENATAL VITAMINS W/ FOLIC ACID TABLET (FP) PO SCH (10:39)
[2021-04-10] MEDS: PANTOPRAZOLE 20 MG TABLET PO SCH (10:40)
[2021-04-10] MEDS: METHOCARBAMOL 500 MG TABLET PO PRN (10:40)
[2021-04-10] MEDS: NICOTINE 14 MG/24 HOURS TOPICAL PATCH TD SCH (10:41)
[2021-04-10] MEDS: TIOTROPIUM BROMIDE 2.5 MCG (SPIRIVA) RESPIMAT INHALER IH SCH (10:41)
[2021-04-10] MEDS: MAG HYDROX/AL HYDROX/SIMETH 30 ML UNIT-DOSE CUP PO PRN (17:31)
[2021-04-10] MEDS: NICOTINE 10 MG CARTRIDGE (INHALER) IH PRN (20:17)
[2021-04-10] MEDS: ALBUTEROL SO4 HFA INHALER IH PRN (20:20)
[2021-04-11] MEDS ORDERED: LORazepam 0.5 MG TABLET PO PRN
[2021-04-11] MEDS: MELATONIN 5 MG TABLETS PO SCH ×2 (00:39→22:33)
[2021-04-11] MEDS: THIAMINE HCL 100 MG TABLET (FP) PO SCH (00:40)
[2021-04-11] MEDS: hydrOXYzine PAMOATE 25 MG CAPSULE (FP) PO SCH ×5 (05:09→22:33)
[2021-04-11] MEDS: LORazepam 0.5 MG TABLET PO SCH ×4 (05:09→22:33)
[2021-04-11] MEDS: PANTOPRAZOLE 20 MG TABLET PO SCH (10:27)
[2021-04-11] MEDS: TIOTROPIUM BROMIDE 2.5 MCG (SPIRIVA) RESPIMAT INHALER IH SCH (10:27)
[2021-04-11] MEDS: PRENATAL VITAMINS W/ FOLIC ACID TABLET (FP) PO SCH (10:27)
[2021-04-11] MEDS: METHOCARBAMOL 500 MG TABLET PO PRN (10:28)
[2021-04-11] MEDS: amLODIPine BESYLATE 10 MG TABLET (FP) PO SCH (10:28)
[2021-04-11] MEDS: NICOTINE 14 MG/24 HOURS TOPICAL PATCH TD SCH (10:29)
[2021-04-11] MEDS: NICOTINE 10 MG CARTRIDGE (INHALER) IH PRN (17:50)
[2021-04-12] MEDS: THIAMINE HCL 100 MG TABLET (FP) PO SCH (00:37)
[2021-04-12] MEDS ORDERED: LORazepam 0.5 MG TABLET PO ONE (05:00)
[2021-04-12] MEDS: hydrOXYzine PAMOATE 25 MG CAPSULE (FP) PO SCH (06:03)
[2021-04-12 09:52] VITALS: BP 128/85; PULSE 102; TEMP 98.3
== END 2021-04-12 11:00 | disposition home or self-care (01) | DRG 774 ==
LOC: YASAS 10:16 → Y6N 12:35 → UNDOADMIN 12:35
PROVIDERS: ADMIT Allergy & Immunology; ATTEND Allergy & Immunology
PROC: HZ2ZZZZ Detoxification Services for Substance Abuse Treatment (ICD-10-PCS; principal; 2021-04-07)
DX: F10.230 Alcohol dependence with withdrawal, uncomplicated (principal); F10.282 Alcohol dependence with alcohol-induced sleep disorder; F14.20 Cocaine dependence, uncomplicated; F17.213 Nicotine dependence, cigarettes, with withdrawal; I10 Essential (primary) hypertension; J43.9 Emphysema, unspecified; R73.09 Other abnormal glucose; K21.9 Gastro-esophageal reflux disease without esophagitis; M17.12 Unilateral primary osteoarthritis, left knee; N40.0 Benign prostatic hyperplasia without lower urinary tract symptoms; M54.59 Other low back pain; G89.29 Other chronic pain; G47.33 Obstructive sleep apnea (adult) (pediatric); Z99.89 Dependence on other enabling machines and devices; Z91.19 Patient's noncompliance with other medical treatment and regimen; Z88.8 Allergy status to other drugs, medicaments and biological substances; Z86.16 Personal history of COVID-19; Z56.0 Unemployment, unspecified; Z59.01 Sheltered homelessness
CPT/HCPCS: 36415; 80053; 82962; 85027; C9803; Q0162; U0003; U0005

== ENCOUNTER 2021-05-24 17:15 | Inpatient (IN) | payer OTHER ==
[2021-05-24 17:33] VITALS: BMI 28.1
[2021-05-24] MEDS ORDERED: FOLIC ACID INJECTION - 1 MG, THIAMINE HCL 100 MG, MULTIVIT INJECTION ADULT 10 ML in SOD... IVPB ONE (19:16)
[2021-05-24] MEDS ORDERED: LORazepam 1 MG TABLET PO ONE (19:49)
[2021-05-24] MEDS ORDERED: LORazepam 1 MG TABLET ONE (19:50)
[2021-05-24 19:57] LABS: HEMATOCRIT 35.1 % (35.4-49); MCHC 34.2 g/dl (32.0-35.9); MEAN CELL VOLUME 93.7 fl (80-96); MEAN PLT VOLUME 8.7 fl (7.5-11.1); PLATELET COUNT 162 10^3/uL (134-434); RBC 3.75 M/mm3 (4.00-5.60); RDW 18.6 % (11.9-15.9); WHITE BLOOD COUNT 9.4 K/mm3 (4.0-10.0)
[2021-05-24 20:11] LABS: INR 0.99 (0.83-1.09); PROTHROMBIN TIME (PATIENT) 11.4 SEC (9.7-13.0)
[2021-05-24 20:14] LABS: ACTIVATED PTT 27.5 SECONDS (25.2-36.5)
[2021-05-24 20:23] LABS: ANISOCYTOSIS 0; HELMET CELLS 0; HOWELL-JOLLY BODIES 0; MACROCYTOSIS 0; OVALOCYTE 0; PLATELET ESTIMATE DECREASED; ROULEAU 0; SICKELED CELLS 0; TARGET CELLS 0; TEAR DROP CELLS 0; TOXIC GRANULATION 0
[2021-05-24 20:51] LABS: CHLORIDE 94 mmol/L (98-107); SODIUM 140 mmol/L (136-145)
[2021-05-24 20:53] LABS: CALCIUM 9.5 mg/dL (8.5-10.1)
[2021-05-24 20:54] LABS: ALBUMIN 3.5 g/dl (3.4-5.0); ANION GAP 19 MMOL/L (8-16); BLOOD UREA NITROGEN 13.8 mg/dL (7-18); CO2 27 mmol/L (21-32); GLUCOSE,RANDOM 90 mg/dL (74-106); MAGNESIUM 1.9 mg/dL (1.8-2.4)
[2021-05-24 20:57] LABS: CREATININE 1.4 mg/dL (0.55-1.3); SGOT/AST 149 U/L (15-37); SGPT/ALT 62 U/L (13-61)
[2021-05-24 20:59] LABS: BILIRUBIN,TOTAL 1.9 mg/dL (0.2-1); TOT PROT 7.8 g/dl (6.4-8.2)
[2021-05-24 21:00] LABS: ALK PHOS 113 U/L (45-117)
[2021-05-24] MEDS ORDERED: POTASSIUM CHLORIDE ORAL LIQUID 20 MEQ/15 ML PO ONE (21:12)
[2021-05-24] MEDS ORDERED: MAGNESIUM SULF 50% (8.12 MEQ/2 ML-1 GM VIAL) IVPB ONE (21:26)
[2021-05-24] MEDS ORDERED: ASPIRIN 81 MG CHEWABLE TABLETS PO ONE (21:49)
[2021-05-24] MEDS ORDERED: MAGNESIUM SULFATE IN WATER 2 GM/50 ML IVPB IVPB ONE (22:18)
[2021-05-24] MEDS ORDERED: POTASSIUM CHLORIDE ORAL LIQUID 20 MEQ/15 ML ONE (22:18)
[2021-05-24] MEDS ORDERED: ASPIRIN 81 MG CHEWABLE TABLETS ONE (22:18)
[2021-05-24] MEDS ORDERED: LORazepam 1 MG TABLET PO PRN (22:46)
[2021-05-24] MEDS ORDERED: LORazepam 1 MG TABLET PO SCH (23:00)
[2021-05-25] MEDS ORDERED: HEPARIN NA (PORCINE) 5,000 UNITS/ML 1ML VIAL IVPUSH PRN (02:28)
[2021-05-25] MEDS ORDERED: HEPARIN SOD,PORK IN 0.45% NACL 25,000 UNITS/500 ML INFUS.BAG IVPB SCH (02:30)
[2021-05-25 02:42] LABS: EPI CELLS 10 /uL (0-25.1); HYALINE CASTS 10 /uL (0-3.1); URINE APPEARANCE CLEAR; URINE BACTERIA 1 /uL (0-1359); URINE BILIRUBIN 3+ (NEGATIVE); URINE COLOR DK YELLOW; URINE GLUCOSE (UA) NEGATIVE (NEGATIVE); URINE KETONE 2+ (NEGATIVE); URINE LEUK ESTERASE NEGATIVE (NEGATIVE); URINE NITRITE NEGATIVE (NEGATIVE); URINE PROTEIN 1+ (NEGATIVE); URINE RBC 33 /uL (0-23.9); URINE WBC 11 /uL (0-25.8)
[2021-05-25 02:51] LABS: METHADONE, UR NEGATIVE (NEGATIVE); OPIATES, URI NEGATIVE (NEGATIVE); PHENCYCLIDINE,URINE NEGATIVE (NEGATIVE)
[2021-05-25] MEDS ORDERED: HEPARIN NA (PORCINE) 5,000 UNITS/ML 1ML VIAL ONE ×2 (02:51→11:24)
[2021-05-25 02:52] LABS: URINE BARBITURATES NEGATIVE (NEGATIVE)
[2021-05-25] MEDS: HEPARIN NA (PORCINE) 5,000 UNITS/ML 1ML VIAL IVPUSH PRN ×2 (02:58→11:28)
[2021-05-25 03:04] LABS: COCAINE, UR NEGATIVE (NEGATIVE); URINE AMPHETAMINES NEGATIVE (NEGATIVE); URINE BENZODIAZEPINES NEGATIVE (NEGATIVE)
[2021-05-25] MEDS ORDERED: HEPARIN NA (PORCINE) 5,000 UNITS/ML 1ML VIAL SQ SCH (06:00)
[2021-05-25] MEDS: LORazepam 1 MG TABLET PO SCH ×3 (06:04→17:16)
[2021-05-25] MEDS ORDERED: LORazepam 1 MG TABLET ONE ×3 (06:05→17:13)
[2021-05-25] MEDS ORDERED: ATORVASTATIN CA 80 MG TABLET (FP) PO SCH (07:16)
[2021-05-25] MEDS: SODIUM CHLORIDE 1,000 ML IV SCH (08:10)
[2021-05-25] MEDS ORDERED: ATORVASTATIN CA 80 MG TABLET (FP) ONE ×2 (08:23→22:33)
[2021-05-25] MEDS ORDERED: FOLIC ACID 1 MG TABLET (FP) ONE (08:53)
[2021-05-25] MEDS ORDERED: PANTOPRAZOLE 20 MG TABLET PO ONE (08:53)
[2021-05-25] MEDS ORDERED: THIAMINE HCL 100 MG TABLET (FP) ONE (08:53)
[2021-05-25] MEDS: FOLIC ACID 1 MG TABLET (FP) PO SCH (09:09)
[2021-05-25] MEDS: PANTOPRAZOLE 20 MG TABLET PO SCH (09:09)
[2021-05-25] MEDS: THIAMINE HCL 100 MG TABLET (FP) PO SCH (09:09)
[2021-05-25 09:23] LABS: HEMATOCRIT 30.3 % (35.4-49); HEMOGLOBIN 10.2 GM/dL (11.7-16.9); MCH 31.7 pg (25.7-33.7); MCHC 33.7 g/dl (32.0-35.9); MEAN CELL VOLUME 93.9 fl (80-96); MEAN PLT VOLUME 8.7 fl (7.5-11.1); PLATELET COUNT 130 10^3/uL (134-434); RBC 3.22 M/mm3 (4.00-5.60); RDW 18.1 % (11.9-15.9); WHITE BLOOD COUNT 7.4 K/mm3 (4.0-10.0)
[2021-05-25 09:47] LABS: CHLORIDE 94 mmol/L (98-107); SODIUM 137 mmol/L (136-145)
[2021-05-25 09:57] LABS: ALBUMIN 2.8 g/dl (3.4-5.0); CALCIUM 8.2 mg/dL (8.5-10.1); CO2 26 mmol/L (21-32); MAGNESIUM 2.2 mg/dL (1.8-2.4)
[2021-05-25 09:59] LABS: SGPT/ALT 45 U/L (13-61)
[2021-05-25 10:00] LABS: BLOOD UREA NITROGEN 13.4 mg/dL (7-18); CREATININE 1.1 mg/dL (0.55-1.3); GLUCOSE,RANDOM 80 mg/dL (74-106); SGOT/AST 106 U/L (15-37)
[2021-05-25 10:01] LABS: ALK PHOS 88 U/L (45-117); BILIRUBIN,TOTAL 1.1 mg/dL (0.2-1); TOT PROT 6.4 g/dl (6.4-8.2)
[2021-05-25 10:36] LABS: ANION GAP 17 MMOL/L (8-16)
[2021-05-25] MEDS ORDERED: KCL 10 MEQ IVPB 10 MEQ/100 ML INFUS.BAG IVPB SCH (12:45)
[2021-05-25] MEDS ORDERED: POTASSIUM PHOSPHATE 30 MM in SODIUM CHLORIDE 500 ML IVPB ONE (12:46)
[2021-05-25] MEDS ORDERED: POTASSIUM CHLORIDE TABS 20 MEQ TABLET.ER (FP) PO ONE ×2 (13:00→13:15)
[2021-05-25] MEDS ORDERED: NAPH,MB-DB/K PH,MBDB POWDER PACKET PO ONE (13:00)
[2021-05-25] MEDS ORDERED: KCL 10 MEQ IVPB 10 MEQ/100 ML INFUS.BAG IVPB ONE ×3 (13:15→15:21)
[2021-05-25] MEDS ORDERED: NAPH,MB-DB/K PH,MBDB POWDER PACKET ONE (13:15)
[2021-05-25] MEDS: KCL 10 MEQ IVPB 10 MEQ/100 ML INFUS.BAG IVPB SCH ×3 (13:28→17:11)
[2021-05-26] MEDS: LORazepam 1 MG TABLET PO SCH ×5 (00:47→22:15)
[2021-05-26] MEDS: NICOTINE 14 MG/24 HOURS TOPICAL PATCH TD SCH ×2 (01:45→09:34)
[2021-05-26] MEDS ORDERED: POTASSIUM CHLORIDE TABS 20 MEQ TABLET.ER (FP) PO ONE ×3 (01:56→14:42)
[2021-05-26] MEDS ORDERED: LORazepam 2 MG/ML SDV VIAL IVPUSH ONE (01:57)
[2021-05-26] MEDS ORDERED: LORazepam 1 MG TABLET PO SCH (05:00)
[2021-05-26] MEDS: SODIUM CHLORIDE 1,000 ML IV SCH (06:54)
[2021-05-26 09:04] LABS: BASO % 0.3 % (0-2.0); EOS % 1.3 % (0-4.5); HEMATOCRIT 29.7 % (35.4-49); LYMPH % 15.6 % (8-40); MCH 31.5 pg (25.7-33.7); MCHC 33.6 g/dl (32.0-35.9); MEAN CELL VOLUME 93.8 fl (80-96); MEAN PLT VOLUME 8.6 fl (7.5-11.1); NEUT % 68.8 % (42.8-82.8); PLATELET COUNT 151 10^3/uL (134-434); RBC 3.17 M/mm3 (4.00-5.60); RDW 18.5 % (11.9-15.9); WHITE BLOOD COUNT 6.7 K/mm3 (4.0-10.0)
[2021-05-26 09:07] LABS: CHLORIDE 101 mmol/L (98-107); SODIUM 139 mmol/L (136-145)
[2021-05-26 09:16] LABS: CALCIUM 9.2 mg/dL (8.5-10.1)
[2021-05-26 09:17] LABS: ANION GAP 11 MMOL/L (8-16); BLOOD UREA NITROGEN 6.8 mg/dL (7-18); CO2 27 mmol/L (21-32); GLUCOSE,RANDOM 88 mg/dL (74-106); MAGNESIUM 1.7 mg/dL (1.8-2.4)
[2021-05-26 09:20] LABS: CREATININE 0.7 mg/dL (0.55-1.3); SGOT/AST 128 U/L (15-37); SGPT/ALT 45 U/L (13-61)
[2021-05-26 09:22] LABS: TOT PROT 6.4 g/dl (6.4-8.2)
[2021-05-26 09:23] LABS: ALK PHOS 91 U/L (45-117)
[2021-05-26] MEDS: FOLIC ACID 1 MG TABLET (FP) PO SCH (09:34)
[2021-05-26] MEDS: PANTOPRAZOLE 20 MG TABLET PO SCH (09:34)
[2021-05-26] MEDS: THIAMINE HCL 100 MG TABLET (FP) PO SCH (09:34)
[2021-05-26 09:42] LABS: PHOSPHOROUS 0.8 mg/dL (2.5-4.9)
[2021-05-26] MEDS ORDERED: POTASSIUM PHOSPHATE 30 MM in SODIUM CHLORIDE 500 ML IVPB ONE (09:58)
[2021-05-26] MEDS ORDERED: MAGNESIUM SULF 50% (8.12 MEQ/2 ML-1 GM VIAL) IVPB ONE (14:59)
[2021-05-26] MEDS: MULTIVITAMINS (DAILY MVI) TABLET (FP) PO SCH (16:47)
[2021-05-26 21:23] LABS: PHOSPHOROUS 1.4 mg/dL (2.5-4.9)
[2021-05-26] MEDS: ATORVASTATIN CA 40 MG TABLET (FP) PO SCH (22:15)
[2021-05-27] MEDS ORDERED: LORazepam 0.5 MG TABLET PO PRN
[2021-05-27] MEDS ORDERED: NAPH,MB-DB/K PH,MBDB POWDER PACKET PO ONE (00:14)
[2021-05-27] MEDS: LORazepam 0.5 MG TABLET PO SCH ×4 (05:40→22:09)
[2021-05-27] MEDS: LORazepam 1 MG TABLET PO SCH (05:46)
[2021-05-27 07:14] LABS: BASO % 0.5 % (0-2.0); EOS % 2.1 % (0-4.5); HEMATOCRIT 30.8 % (35.4-49); HEMOGLOBIN 10.2 GM/dL (11.7-16.9); LYMPH % 15.2 % (8-40); MCH 31.3 pg (25.7-33.7); MCHC 33.3 g/dl (32.0-35.9); MEAN CELL VOLUME 94.1 fl (80-96); MEAN PLT VOLUME 8.7 fl (7.5-11.1); MONO % 10.5 % (3.8-10.2); NEUT % 71.7 % (42.8-82.8); PLATELET COUNT 180 10^3/uL (134-434); RBC 3.27 M/mm3 (4.00-5.60); RDW 18.3 % (11.9-15.9); WHITE BLOOD COUNT 6.5 K/mm3 (4.0-10.0)
[2021-05-27 07:33] LABS: BLOOD UREA NITROGEN 4.4 mg/dL (7-18); MAGNESIUM 1.8 mg/dL (1.8-2.4)
[2021-05-27 07:36] LABS: CREATININE 0.6 mg/dL (0.55-1.3); PHOSPHOROUS 2.8 mg/dL (2.5-4.9)
[2021-05-27] MEDS ORDERED: POTASSIUM CHLORIDE TABS 20 MEQ TABLET.ER (FP) PO ONE (07:47)
[2021-05-27] MEDS ORDERED: MAGNESIUM SULF 50% (8.12 MEQ/2 ML-1 GM VIAL) IVPB ONE (07:47)
[2021-05-27] MEDS: PANTOPRAZOLE 20 MG TABLET PO SCH (10:40)
[2021-05-27] MEDS: MULTIVITAMINS (DAILY MVI) TABLET (FP) PO SCH (10:40)
[2021-05-27] MEDS: FOLIC ACID 1 MG TABLET (FP) PO SCH (10:40)
[2021-05-27] MEDS: THIAMINE HCL 100 MG TABLET (FP) PO SCH (10:40)
[2021-05-27] MEDS: ASPIRIN 81 MG CHEWABLE TABLETS PO SCH (10:40)
[2021-05-27] MEDS: NICOTINE 14 MG/24 HOURS TOPICAL PATCH TD SCH (10:43)
[2021-05-27] MEDS: ATORVASTATIN CA 40 MG TABLET (FP) PO SCH (22:09)
[2021-05-28] MEDS ORDERED: LORazepam 0.5 MG TABLET PO ONE (05:00)
[2021-05-28 07:42] LABS: BASO % 0.3 % (0-2.0); EOS % 1.8 % (0-4.5); HEMOGLOBIN 10.2 GM/dL (11.7-16.9); MCHC 34.1 g/dl (32.0-35.9); MEAN CELL VOLUME 93.8 fl (80-96); MEAN PLT VOLUME 8.1 fl (7.5-11.1); MONO % 13.6 % (3.8-10.2); NEUT % 67.3 % (42.8-82.8); PLATELET COUNT 197 10^3/uL (134-434); RDW 18.2 % (11.9-15.9); WHITE BLOOD COUNT 6.6 K/mm3 (4.0-10.0)
[2021-05-28 08:06] LABS: CALCIUM 8.9 mg/dL (8.5-10.1)
[2021-05-28 08:07] LABS: ALBUMIN 2.7 g/dl (3.4-5.0); MAGNESIUM 1.8 mg/dL (1.8-2.4)
[2021-05-28 08:09] LABS: PHOSPHOROUS 2.8 mg/dL (2.5-4.9)
[2021-05-28 08:11] LABS: BILIRUBIN,TOTAL 0.7 mg/dL (0.2-1); TOT PROT 6.4 g/dl (6.4-8.2)
[2021-05-28] MEDS: MULTIVITAMINS (DAILY MVI) TABLET (FP) PO SCH (10:13)
[2021-05-28] MEDS: PANTOPRAZOLE 20 MG TABLET PO SCH (10:13)
[2021-05-28] MEDS: ASPIRIN 81 MG CHEWABLE TABLETS PO SCH (10:13)
[2021-05-28] MEDS: FOLIC ACID 1 MG TABLET (FP) PO SCH (10:13)
[2021-05-28] MEDS: THIAMINE HCL 100 MG TABLET (FP) PO SCH (10:13)
[2021-05-28] MEDS: NICOTINE 14 MG/24 HOURS TOPICAL PATCH TD SCH (10:14)
[2021-05-28 14:39] VITALS: BP 101/68; PULSE 86; TEMP 98.4
== END 2021-05-28 15:40 | disposition home or self-care (01) | DRG 775 ==
LOC: JER 17:15 → JERBED 21:00 → J4W 05-25 23:44
PROVIDERS: ADMIT Internal Medicine
PROC: 0CQ0XZZ Repair Upper Lip, External Approach (ICD-10-PCS; principal; 2021-05-24)
PROC: HZ2ZZZZ Detoxification Services for Substance Abuse Treatment (ICD-10-PCS; 2021-05-24)
DX: F10.230 Alcohol dependence with withdrawal, uncomplicated (principal); R55 Syncope and collapse; J44.9 Chronic obstructive pulmonary disease, unspecified; I10 Essential (primary) hypertension; G47.33 Obstructive sleep apnea (adult) (pediatric); N40.0 Benign prostatic hyperplasia without lower urinary tract symptoms; S01.511A Laceration without foreign body of lip, initial encounter; E87.6 Hypokalemia; N17.9 Acute kidney failure, unspecified; R07.89 Other chest pain; K21.9 Gastro-esophageal reflux disease without esophagitis; I45.10 Unspecified right bundle-branch block; S02.2XXA Fracture of nasal bones, initial encounter for closed fracture; R74.01 Elevation of levels of liver transaminase levels; I25.10 Atherosclerotic heart disease of native coronary artery without angina pectoris; K76.0 Fatty (change of) liver, not elsewhere classified; E46 Unspecified protein-calorie malnutrition; Z68.28 Body mass index [BMI] 28.0-28.9, adult; M54.50 Low back pain, unspecified; M17.12 Unilateral primary osteoarthritis, left knee; J98.11 Atelectasis; E78.5 Hyperlipidemia, unspecified; F17.210 Nicotine dependence, cigarettes, uncomplicated; R79.89 Other specified abnormal findings of blood chemistry; R16.0 Hepatomegaly, not elsewhere classified; Y92.89 Other specified places as the place of occurrence of the external cause; W18.39XA Other fall on same level, initial encounter; Z59.00 Homelessness unspecified
CPT/HCPCS: 36415; 70450-TC; 70486-TC; 71045-TC-FY; 71250-TC; 72125-TC; 76705-TC; 80048; 80053; 80307; 81003; 82550; 82962; 83735; 84100; 84132; 84443; 84484; 85025; 85027; 85610; 85730; 86705; 86803; 87086; 87340; 87517; 93005; 93010; 93306-TC; 97116-GP; 97161-GP; 99285-25; C9803; J1644; U0003; U0005

== ENCOUNTER 2022-04-22 00:02 | Inpatient (IN) | payer OTHER ==
[2022-04-22] MEDS ORDERED: FAMOTIDINE 10 MG TABLET PO ONE (01:55)
[2022-04-22] MEDS ORDERED: MAG HYDROX/AL HYDROX/SIMETH 30 ML UNIT-DOSE CUP PO ONE (01:55)
[2022-04-22] MEDS ORDERED: ACETAMINOPHEN 1000 MG/100 ML BAG IVPB ONE (01:55)
[2022-04-22] MEDS ORDERED: ONDANSETRON 4 MG/2 ML VIAL IVPUSH ONE (02:17)
[2022-04-22 02:35] LABS: BASO % 4.2 % (0-2.0); EOS % 0.1 % (0-4.5); HEMATOCRIT 37.6 % (35.4-49); HEMOGLOBIN 12.4 GM/dL (11.7-16.9); LYMPH % 27.5 % (8-40); MCH 31.2 pg (25.7-33.7); MCHC 32.9 g/dl (32.0-35.9); MEAN CELL VOLUME 95.1 fl (80-96); MEAN PLT VOLUME 8.5 fl (7.5-11.1); MONO % 7.1 % (3.8-10.2); NEUT % 61.1 % (42.8-82.8); PLATELET COUNT 51 10^3/uL (134-434); RBC 3.95 M/mm3 (4.00-5.60); RDW 15.7 % (11.9-15.9); WHITE BLOOD COUNT 4.2 K/mm3 (4.0-10.0)
[2022-04-22 02:45] LABS: ALBUMIN 3.2 g/dl (3.4-5.0); CALCIUM 8.5 mg/dL (8.5-10.1)
[2022-04-22 02:46] LABS: BLOOD UREA NITROGEN 10.1 mg/dL (7-18)
[2022-04-22 02:48] LABS: CREATININE 1.5 mg/dL (0.55-1.3)
[2022-04-22 02:50] LABS: BILIRUBIN,TOTAL 0.7 mg/dL (0.2-1); TOT PROT 7.6 g/dl (6.4-8.2)
[2022-04-22] MEDS ORDERED: KCL 10 MEQ IVPB 10 MEQ/100 ML INFUS.BAG IVPB ONE ×3 (03:36→11:12)
[2022-04-22] MEDS ORDERED: MAG HYDROX/AL HYDROX/SIMETH 30 ML UNIT-DOSE CUP ONE (03:40)
[2022-04-22] MEDS ORDERED: ONDANSETRON 4 MG/2 ML VIAL ONE (03:40)
[2022-04-22] MEDS ORDERED: FAMOTIDINE 20 MG TABLET ONE (03:40)
[2022-04-22] MEDS: KCL 10 MEQ IVPB 10 MEQ/100 ML INFUS.BAG IVPB SCH ×3 (03:46→11:19)
[2022-04-22] MEDS ORDERED: KCL 10 MEQ IVPB 10 MEQ/100 ML INFUS.BAG IVPB SCH (08:30)
[2022-04-22] MEDS ORDERED: NICOTINE POLACRILEX 2 MG GUM BC PRN (18:25)
[2022-04-22] MEDS ORDERED: ALBUTEROL SO4 HFA INHALER IH PRN (18:25)
[2022-04-22] MEDS ORDERED: ERGOCALCIFEROL (VIT D2) 50,000 UNIT (1.25 MG) CAPSULE PO SCH (18:30)
[2022-04-22] MEDS ORDERED: FOLIC ACID INJECTION - 1 MG, THIAMINE HCL 100 MG, MULTIVIT INJECTION ADULT 10 ML in SOD... IVPB ONE (19:30)
[2022-04-22] MEDS ORDERED: ACETAMINOPHEN 1000 MG/100 ML BAG IVPB PRN (22:50)
[2022-04-22] MEDS ORDERED: CYCLOBENZAPRINE HCL 10 MG TABLET (FP) PO ONE (22:51)
[2022-04-22] MEDS ORDERED: CYCLOBENZAPRINE HCL 5 MG TABLET ONE (22:53)
[2022-04-23] MEDS ORDERED: THIAMINE HCL 200 MG/2 ML VIAL ONE (01:08)
[2022-04-23] MEDS: THIAMINE HCL 200 MG/2 ML VIAL IM SCH ×2 (01:32→11:29)
[2022-04-23] MEDS ORDERED: LORazepam 1 MG TABLET PO ONE (01:36)
[2022-04-23] MEDS ORDERED: LORazepam 1 MG TABLET ONE (02:07)
[2022-04-23] MEDS ORDERED: ACETAMINOPHEN INJECTION 100 ML IVPB ONE (06:41)
[2022-04-23 07:21] LABS: BASO % 0.8 % (0-2.0); EOS % 0.5 % (0-4.5); HEMATOCRIT 31.8 % (35.4-49); HEMOGLOBIN 10.1 GM/dL (11.7-16.9); LYMPH % 30.9 % (8-40); MCH 30.2 pg (25.7-33.7); MCHC 31.9 g/dl (32.0-35.9); MEAN CELL VOLUME 94.6 fl (80-96); MEAN PLT VOLUME 9.4 fl (7.5-11.1); MONO % 5.6 % (3.8-10.2); NEUT % 62.2 % (42.8-82.8); PLATELET COUNT 38 10^3/uL (134-434); RBC 3.36 M/mm3 (4.00-5.60); RDW 15.7 % (11.9-15.9); WHITE BLOOD COUNT 3.9 K/mm3 (4.0-10.0)
[2022-04-23 07:42] LABS: ALBUMIN 2.7 g/dl (3.4-5.0); BLOOD UREA NITROGEN 6.3 mg/dL (7-18)
[2022-04-23 07:43] LABS: MAGNESIUM 1.3 mg/dL (1.8-2.4)
[2022-04-23 07:45] LABS: CREATININE 0.9 mg/dL (0.55-1.3); PHOSPHOROUS 2.7 mg/dL (2.5-4.9)
[2022-04-23 07:46] LABS: BILIRUBIN,TOTAL 1.5 mg/dL (0.2-1)
[2022-04-23 07:47] LABS: TOT PROT 6.4 g/dl (6.4-8.2)
[2022-04-23] MEDS ORDERED: THIAMINE HCL 100 MG TABLET (FP) PO SCH (10:00)
[2022-04-23] MEDS ORDERED: PANTOPRAZOLE 20 MG TABLET PO SCH (10:00)
[2022-04-23] MEDS: PANTOPRAZOLE 20 MG TABLET PO SCH (11:23)
[2022-04-23] MEDS: FOLIC ACID 1 MG TABLET (FP) PO SCH (11:23)
[2022-04-23] MEDS: METOPROLOL TARTRATE 25 MG TABLET (FP) PO SCH (11:23)
[2022-04-23] MEDS: MULTIVITAMINS (DAILY MVI) TABLET (FP) PO SCH (11:23)
[2022-04-23] MEDS: KCL 10 MEQ IVPB 10 MEQ/100 ML INFUS.BAG IVPB SCH ×3 (11:30→14:23)
[2022-04-23 13:12] VITALS: BMI 25.9
[2022-04-23 13:48] LABS: INR 1.05 (0.83-1.09); PROTHROMBIN TIME (PATIENT) 12.1 SEC (9.7-13.0)
[2022-04-23] MEDS: TIOTROPIUM BROMIDE 2.5 MCG (SPIRIVA) RESPIMAT INHALER IH SCH (16:43)
[2022-04-23] MEDS ORDERED: MAGNESIUM SULF 50% (8.12 MEQ/2 ML-1 GM VIAL) IVPB ONE (20:29)
[2022-04-24] MEDS ORDERED: hydrOXYzine PAMOATE 25 MG CAPSULE (FP) PO ONE (01:31)
[2022-04-24] MEDS: NICOTINE 7 MG/24 HOURS TOPICAL PATCH TD SCH ×2 (01:41→10:46)
[2022-04-24 08:18] LABS: BASO % 0.5 % (0-2.0); EOS % 1.1 % (0-4.5); HEMOGLOBIN 9.6 GM/dL (11.7-16.9); LYMPH % 31.1 % (8-40); MCH 30.6 pg (25.7-33.7); MCHC 32.2 g/dl (32.0-35.9); MEAN CELL VOLUME 95.2 fl (80-96); MEAN PLT VOLUME 8.2 fl (7.5-11.1); MONO % 7.4 % (3.8-10.2); NEUT % 59.9 % (42.8-82.8); PLATELET COUNT 51 10^3/uL (134-434); RBC 3.15 M/mm3 (4.00-5.60); RDW 15.4 % (11.9-15.9); WHITE BLOOD COUNT 4.2 K/mm3 (4.0-10.0)
[2022-04-24 08:19] LABS: CHLORIDE 99 mmol/L (98-107); SODIUM 139 mmol/L (136-145)
[2022-04-24 08:22] LABS: CALCIUM 7.7 mg/dL (8.5-10.1); INR 1.1 (0.83-1.09); PROTHROMBIN TIME (PATIENT) 12.7 SEC (9.7-13.0)
[2022-04-24 08:23] LABS: ALBUMIN 2.6 g/dl (3.4-5.0); BLOOD UREA NITROGEN 7.4 mg/dL (7-18); CO2 26 mmol/L (21-32); GLUCOSE,RANDOM 70 mg/dL (74-106)
[2022-04-24 08:26] LABS: CREATININE 1.1 mg/dL (0.55-1.3); SGOT/AST 137 U/L (15-37); SGPT/ALT 46 U/L (13-61)
[2022-04-24 08:27] LABS: TOT PROT 6.2 g/dl (6.4-8.2)
[2022-04-24 08:28] LABS: BILIRUBIN,TOTAL 1.2 mg/dL (0.2-1)
[2022-04-24 08:29] LABS: ALK PHOS 67 U/L (45-117)
[2022-04-24 08:48] LABS: ANION GAP 14 MMOL/L (8-16)
[2022-04-24] MEDS ORDERED: MAGNESIUM SULF 50% (8.12 MEQ/2 ML-1 GM VIAL) IVPB ONE (10:15)
[2022-04-24] MEDS: D5-1/2NS+20 MEQ KCL - 20 MEQ/1,000 ML INFUS.BAG IV SCH (10:45)
[2022-04-24] MEDS: POTASSIUM CHLORIDE TABS 20 MEQ TABLET.ER (FP) PO SCH (10:46)
[2022-04-24] MEDS: FOLIC ACID 1 MG TABLET (FP) PO SCH (10:46)
[2022-04-24] MEDS: TIOTROPIUM BROMIDE 2.5 MCG (SPIRIVA) RESPIMAT INHALER IH SCH (10:46)
[2022-04-24] MEDS: METOPROLOL TARTRATE 25 MG TABLET (FP) PO SCH (10:46)
[2022-04-24] MEDS: PANTOPRAZOLE 20 MG TABLET PO SCH (10:46)
[2022-04-24] MEDS: MULTIVITAMINS (DAILY MVI) TABLET (FP) PO SCH (10:46)
[2022-04-24] MEDS: THIAMINE HCL 200 MG/2 ML VIAL IM SCH (10:47)
[2022-04-24 11:25] LABS: IRON SERUM 181 ug/dL (50-175)
[2022-04-24 11:28] LABS: TOTAL IRON BINDING CAPACITY 255 ug/dL (250-450)
[2022-04-24] MEDS: DULoxetine HCL 30 MG CAPSULE.DR PO SCH (22:06)
[2022-04-25] MEDS: D5-1/2NS+20 MEQ KCL - 20 MEQ/1,000 ML INFUS.BAG IV SCH ×2 (06:49→10:44)
[2022-04-25 08:18] LABS: BASO % 0.7 % (0-2.0); EOS % 1.9 % (0-4.5); HEMATOCRIT 30.9 % (35.4-49); LYMPH % 30.5 % (8-40); MCHC 32.3 g/dl (32.0-35.9); MEAN CELL VOLUME 96.2 fl (80-96); MEAN PLT VOLUME 8.8 fl (7.5-11.1); MONO % 10.1 % (3.8-10.2); NEUT % 56.8 % (42.8-82.8); PLATELET COUNT 53 10^3/uL (134-434); RBC 3.21 M/mm3 (4.00-5.60); RDW 15.7 % (11.9-15.9); WHITE BLOOD COUNT 3.6 K/mm3 (4.0-10.0)
[2022-04-25 08:27] LABS: BLOOD UREA NITROGEN 5.9 mg/dL (7-18); CALCIUM 8.3 mg/dL (8.5-10.1); MAGNESIUM 1.6 mg/dL (1.8-2.4)
[2022-04-25 08:28] LABS: ALBUMIN 2.8 g/dl (3.4-5.0)
[2022-04-25 08:30] LABS: CREATININE 1.1 mg/dL (0.55-1.3); PHOSPHOROUS 1.6 mg/dL (2.5-4.9)
[2022-04-25 08:31] LABS: BILIRUBIN,TOTAL 1.2 mg/dL (0.2-1); TOT PROT 6.5 g/dl (6.4-8.2)
[2022-04-25] MEDS: metoPROLOL SUCCINATE 25 MG TAB.SR.24H (FP) PO SCH (10:44)
[2022-04-25] MEDS: MULTIVITAMINS (DAILY MVI) TABLET (FP) PO SCH (10:44)
[2022-04-25] MEDS: POTASSIUM CHLORIDE TABS 20 MEQ TABLET.ER (FP) PO SCH (10:44)
[2022-04-25] MEDS: NICOTINE 7 MG/24 HOURS TOPICAL PATCH TD SCH (10:44)
[2022-04-25] MEDS: PANTOPRAZOLE 20 MG TABLET PO SCH (10:44)
[2022-04-25] MEDS: TIOTROPIUM BROMIDE 2.5 MCG (SPIRIVA) RESPIMAT INHALER IH SCH (10:44)
[2022-04-25] MEDS: FOLIC ACID 1 MG TABLET (FP) PO SCH (10:44)
[2022-04-25] MEDS: THIAMINE HCL 200 MG/2 ML VIAL IM SCH (10:45)
[2022-04-25] MEDS ORDERED: POTASSIUM PHOSPHATE 45 MM in DEXTROSE 5%-WATER - 500 ML IVPB ONE (16:35)
[2022-04-25] MEDS ORDERED: MAGNESIUM SULF 50% (8.12 MEQ/2 ML-1 GM VIAL) IVPB ONE (16:35)
[2022-04-25] MEDS: DEXTROSE 5%-0.45% SALINE 1,000 ML IV SCH (18:01)
[2022-04-25] MEDS: DULoxetine HCL 30 MG CAPSULE.DR PO SCH (21:00)
[2022-04-26 07:26] LABS: BASO % 0.7 % (0-2.0); EOS % 3.1 % (0-4.5); HEMATOCRIT 30.4 % (35.4-49); HEMOGLOBIN 9.8 GM/dL (11.7-16.9); LYMPH % 32.8 % (8-40); MCH 31.2 pg (25.7-33.7); MCHC 32.3 g/dl (32.0-35.9); MEAN CELL VOLUME 96.7 fl (80-96); MEAN PLT VOLUME 9.4 fl (7.5-11.1); NEUT % 50.4 % (42.8-82.8); PLATELET COUNT 68 10^3/uL (134-434); RBC 3.14 M/mm3 (4.00-5.60); RDW 15.7 % (11.9-15.9); WHITE BLOOD COUNT 2.9 K/mm3 (4.0-10.0)
[2022-04-26 07:44] LABS: CALCIUM 8.5 mg/dL (8.5-10.1)
[2022-04-26 07:45] LABS: ALBUMIN 2.6 g/dl (3.4-5.0); BLOOD UREA NITROGEN 3.8 mg/dL (7-18); MAGNESIUM 1.7 mg/dL (1.8-2.4)
[2022-04-26 07:48] LABS: CREATININE 0.9 mg/dL (0.55-1.3); PHOSPHOROUS 5.4 mg/dL (2.5-4.9)
[2022-04-26 07:50] LABS: BILIRUBIN,TOTAL 0.9 mg/dL (0.2-1); TOT PROT 6.2 g/dl (6.4-8.2)
[2022-04-26] MEDS: PANTOPRAZOLE 20 MG TABLET PO SCH (09:46)
[2022-04-26] MEDS: POTASSIUM CHLORIDE TABS 20 MEQ TABLET.ER (FP) PO SCH (09:46)
[2022-04-26] MEDS: THIAMINE HCL 200 MG/2 ML VIAL IM SCH (09:47)
[2022-04-26] MEDS: metoPROLOL SUCCINATE 25 MG TAB.SR.24H (FP) PO SCH (09:47)
[2022-04-26] MEDS: FOLIC ACID 1 MG TABLET (FP) PO SCH (09:47)
[2022-04-26] MEDS: MULTIVITAMINS (DAILY MVI) TABLET (FP) PO SCH (09:47)
[2022-04-26] MEDS: NICOTINE 7 MG/24 HOURS TOPICAL PATCH TD SCH (09:48)
[2022-04-26] MEDS: TIOTROPIUM BROMIDE 2.5 MCG (SPIRIVA) RESPIMAT INHALER IH SCH (09:53)
[2022-04-26] MEDS ORDERED: MAGNESIUM 2GM/50ML STERILE WATER IVPB IVPB ONE (12:21)
[2022-04-26] MEDS: DULoxetine HCL 30 MG CAPSULE.DR PO SCH (21:30)
[2022-04-27 07:47] LABS: BASO % 0.8 % (0-2.0); EOS % 2.8 % (0-4.5); HEMATOCRIT 30.4 % (35.4-49); HEMOGLOBIN 10.1 GM/dL (11.7-16.9); LYMPH % 32.9 % (8-40); MCH 32.1 pg (25.7-33.7); MCHC 33.2 g/dl (32.0-35.9); MEAN CELL VOLUME 96.8 fl (80-96); MEAN PLT VOLUME 9.6 fl (7.5-11.1); MONO % 18.3 % (3.8-10.2); NEUT % 45.2 % (42.8-82.8); PLATELET COUNT 101 10^3/uL (134-434); RBC 3.14 M/mm3 (4.00-5.60); RDW 16.2 % (11.9-15.9); WHITE BLOOD COUNT 3.1 K/mm3 (4.0-10.0)
[2022-04-27 08:34] LABS: ALBUMIN 2.8 g/dl (3.4-5.0); BLOOD UREA NITROGEN 6.3 mg/dL (7-18)
[2022-04-27 08:35] LABS: CALCIUM 9.1 mg/dL (8.5-10.1); MAGNESIUM 1.8 mg/dL (1.8-2.4)
[2022-04-27 08:41] LABS: PHOSPHOROUS 3.8 mg/dL (2.5-4.9)
[2022-04-27 08:43] LABS: TOT PROT 6.4 g/dl (6.4-8.2)
[2022-04-27] MEDS: DEXTROSE 5%-0.45% SALINE 1,000 ML IV SCH (09:22)
[2022-04-27] MEDS: POTASSIUM CHLORIDE TABS 20 MEQ TABLET.ER (FP) PO SCH (09:33)
[2022-04-27] MEDS: metoPROLOL SUCCINATE 25 MG TAB.SR.24H (FP) PO SCH (09:33)
[2022-04-27] MEDS: FOLIC ACID 1 MG TABLET (FP) PO SCH (09:33)
[2022-04-27] MEDS: THIAMINE HCL 200 MG/2 ML VIAL IM SCH (09:34)
[2022-04-27] MEDS: MULTIVITAMINS (DAILY MVI) TABLET (FP) PO SCH (09:34)
[2022-04-27] MEDS: NICOTINE 7 MG/24 HOURS TOPICAL PATCH TD SCH (09:34)
[2022-04-27] MEDS: PANTOPRAZOLE 20 MG TABLET PO SCH (09:34)
[2022-04-27] MEDS: TIOTROPIUM BROMIDE 2.5 MCG (SPIRIVA) RESPIMAT INHALER IH SCH (09:40)
[2022-04-27] MEDS: DULoxetine HCL 30 MG CAPSULE.DR PO SCH (22:04)
[2022-04-27 23:07] LABS: INSULIN 7.9 uIU/mL (2.6-24.9)
[2022-04-28 03:32] VITALS: RESP 20
[2022-04-28 08:40] LABS: HEMATOCRIT 31.1 % (35.4-49); MCH 31.5 pg (25.7-33.7); MCHC 32.1 g/dl (32.0-35.9); MEAN CELL VOLUME 98.1 fl (80-96); MEAN PLT VOLUME 9.1 fl (7.5-11.1); PLATELET COUNT 132 10^3/uL (134-434); RBC 3.17 M/mm3 (4.00-5.60); RDW 16.5 % (11.9-15.9); WHITE BLOOD COUNT 3.9 K/mm3 (4.0-10.0)
[2022-04-28 09:25] LABS: ALBUMIN 2.9 g/dl (3.4-5.0); BLOOD UREA NITROGEN 7.2 mg/dL (7-18); CALCIUM 9.4 mg/dL (8.5-10.1); MAGNESIUM 1.9 mg/dL (1.8-2.4)
[2022-04-28 09:29] LABS: CREATININE 1.1 mg/dL (0.55-1.3); PHOSPHOROUS 4.7 mg/dL (2.5-4.9)
[2022-04-28 09:31] LABS: BILIRUBIN,TOTAL 0.9 mg/dL (0.2-1); TOT PROT 6.6 g/dl (6.4-8.2)
[2022-04-28] MEDS: MULTIVITAMINS (DAILY MVI) TABLET (FP) PO SCH (09:36)
[2022-04-28] MEDS: FOLIC ACID 1 MG TABLET (FP) PO SCH (09:36)
[2022-04-28] MEDS: POTASSIUM CHLORIDE TABS 20 MEQ TABLET.ER (FP) PO SCH (09:36)
[2022-04-28] MEDS: PANTOPRAZOLE 20 MG TABLET PO SCH (09:36)
[2022-04-28] MEDS: NICOTINE 7 MG/24 HOURS TOPICAL PATCH TD SCH (09:37)
[2022-04-28] MEDS: THIAMINE HCL 200 MG/2 ML VIAL IM SCH (09:38)
[2022-04-28] MEDS: TIOTROPIUM BROMIDE 2.5 MCG (SPIRIVA) RESPIMAT INHALER IH SCH (09:51)
[2022-04-28] MEDS ORDERED: metoPROLOL SUCCINATE 25 MG TAB.SR.24H (FP) PO SCH (10:00)
[2022-04-28] MEDS ORDERED: SODIUM CHLORIDE 1,000 ML IV SCH (11:00)
[2022-04-28 14:06] VITALS: BP 151/94; PULSE 60; TEMP 98
== END 2022-04-28 16:32 | disposition home or self-care (01) | DRG 775 ==
LOC: JER 00:02 → JERBED 03:07 → J4W 04-23 10:00
PROVIDERS: ADMIT Internal Medicine; ATTEND Internal Medicine
PROC: HZ2ZZZZ Detoxification Services for Substance Abuse Treatment (ICD-10-PCS; principal; 2022-04-22)
PROC: 30233R1 Transfusion of Nonautologous Platelets into Peripheral Vein, Percutaneous Approach (ICD-10-PCS; 2022-04-23)
DX: F10.20 Alcohol dependence, uncomplicated (principal); I62.02 Nontraumatic subacute subdural hemorrhage; E16.2 Hypoglycemia, unspecified; E87.6 Hypokalemia; K70.0 Alcoholic fatty liver; R29.6 Repeated falls; R55 Syncope and collapse; R74.01 Elevation of levels of liver transaminase levels; D64.9 Anemia, unspecified
CPT/HCPCS: 0241U-QW; 36415; 36430; 36511; 70450-TC; 71250-TC; 72125-TC; 74176-TC; 80053; 80307; 82024; 82533; 82607; 82728; 82746; 82962; 83036; 83525; 83540; 83550; 83690; 83735; 84100; 84439; 84443; 84484; 85025; 85027; 85610; 85730; 86850; 86900; 86901; 93005; 93010; 97116-GP; 97161-GP; 99285-25; P9034

== ENCOUNTER 2022-06-18 17:27 | Inpatient (IN) | payer OTHER ==
[2022-06-18 17:40] VITALS: BMI 26.4
[2022-06-18] MEDS ORDERED: ALBUTEROL SO4 2.5/IPRATROPIUM 0.5 INH SOL 3 ML VIAL.NEB. NEB ONE ×3 (18:17→20:05)
[2022-06-18 18:56] LABS: VENOUS BASE EXCESS 2.6 mmol/L (-2-2); VENOUS O2 SATURATION 30.2 % (70-80); VENOUS PCO2 33.9 mmHg (38-52); VENOUS PH 7.495 (7.310-7.410)
[2022-06-18 19:01] LABS: BASO % 0.3 % (0-2.0); EOS % 0.8 % (0-4.5); HEMATOCRIT 36.7 % (35.4-49); HEMOGLOBIN 12.5 GM/dL (11.7-16.9); LYMPH % 19.4 % (8-40); MCHC 34.1 g/dl (32.0-35.9); MEAN CELL VOLUME 96.9 fl (80-96); MEAN PLT VOLUME 9.6 fl (7.5-11.1); NEUT % 68.5 % (42.8-82.8); PLATELET COUNT 116 10^3/uL (134-434); RBC 3.79 M/mm3 (4.00-5.60); RDW 17.7 % (11.9-15.9); WHITE BLOOD COUNT 3.8 K/mm3 (4.0-10.0)
[2022-06-18 19:08] LABS: INR 0.99 (0.83-1.09); PROTHROMBIN TIME (PATIENT) 11.5 SEC (9.7-13.0)
[2022-06-18 19:10] LABS: ACTIVATED PTT 27.8 SECONDS (25.2-36.5)
[2022-06-18 19:21] LABS: BLOOD UREA NITROGEN 10.2 mg/dL (7-18)
[2022-06-18 19:22] LABS: ALBUMIN 3.5 g/dl (3.4-5.0); CALCIUM 9.8 mg/dL (8.5-10.1); MAGNESIUM 1.2 mg/dL (1.8-2.4)
[2022-06-18 19:25] LABS: PHOSPHOROUS 3.6 mg/dL (2.5-4.9)
[2022-06-18 19:26] LABS: CREATININE 1.6 mg/dL (0.55-1.3)
[2022-06-18 19:27] LABS: BILIRUBIN,TOTAL 1.3 mg/dL (0.2-1); TOT PROT 7.9 g/dl (6.4-8.2)
[2022-06-18] MEDS ORDERED: POTASSIUM CHLORIDE ORAL LIQUID 20 MEQ/15 ML PO ONE (19:48)
[2022-06-18] MEDS ORDERED: MAGNESIUM SULF 50% (8.12 MEQ/2 ML-1 GM VIAL) IVPB ONE (19:48)
[2022-06-18] MEDS ORDERED: MAGNESIUM SULFATE IN WATER 2 GM/50 ML IVPB IVPB ONE (20:06)
[2022-06-18] MEDS ORDERED: POTASSIUM CHLORIDE ORAL LIQUID 20 MEQ/15 ML ONE (20:06)
[2022-06-19] MEDS ORDERED: LORazepam 1 MG TABLET PO PRN ×2 (00:13→12:16)
[2022-06-19] MEDS: LACTATED RINGERS SOLUTION 1,000 ML/1,000 ML INFUS.BAG IV SCH (01:11)
[2022-06-19] MEDS: THIAMINE HCL 200 MG/2 ML VIAL IVPB SCH ×2 (03:08→09:28)
[2022-06-19 06:14] LABS: PH,URINE 5.5 (5.0-8.0); URINE APPEARANCE CLEAR; URINE BILIRUBIN NEGATIVE (NEGATIVE); URINE COLOR DK YELLOW; URINE GLUCOSE (UA) NEGATIVE (NEGATIVE); URINE KETONE TRACE (NEGATIVE); URINE LEUK ESTERASE NEGATIVE (NEGATIVE); URINE NITRITE NEGATIVE (NEGATIVE); URINE PROTEIN TRACE (NEGATIVE)
[2022-06-19 06:31] LABS: METHADONE, UR NEGATIVE (NEGATIVE); PHENCYCLIDINE,URINE NEGATIVE (NEGATIVE); URINE BENZODIAZEPINES NEGATIVE (NEGATIVE)
[2022-06-19 06:32] LABS: COCAINE, UR NEGATIVE (NEGATIVE); OPIATES, URI NEGATIVE (NEGATIVE)
[2022-06-19 06:35] LABS: URINE AMPHETAMINES NEGATIVE (NEGATIVE); URINE BARBITURATES NEGATIVE (NEGATIVE)
[2022-06-19 07:30] LABS: BASO % 0.4 % (0-2.0); EOS % 1.3 % (0-4.5); HEMATOCRIT 30.3 % (35.4-49); HEMOGLOBIN 10.5 GM/dL (11.7-16.9); LYMPH % 34.7 % (8-40); MCH 33.3 pg (25.7-33.7); MCHC 34.5 g/dl (32.0-35.9); MEAN CELL VOLUME 96.5 fl (80-96); MEAN PLT VOLUME 9.4 fl (7.5-11.1); MONO % 12.3 % (3.8-10.2); NEUT % 51.3 % (42.8-82.8); PLATELET COUNT 105 10^3/uL (134-434); RBC 3.14 M/mm3 (4.00-5.60); RDW 17.5 % (11.9-15.9); WHITE BLOOD COUNT 3.4 K/mm3 (4.0-10.0)
[2022-06-19 07:53] LABS: CHLORIDE 99 mmol/L (98-107); SODIUM 136 mmol/L (136-145)
[2022-06-19 08:05] LABS: GLUCOSE,RANDOM 80 mg/dL (74-106)
[2022-06-19 08:06] LABS: ALBUMIN 2.9 g/dl (3.4-5.0); CO2 25 mmol/L (21-32); MAGNESIUM 1.6 mg/dL (1.8-2.4)
[2022-06-19 08:08] LABS: SGPT/ALT 43 U/L (13-61)
[2022-06-19 08:09] LABS: CREATININE 1.2 mg/dL (0.55-1.3); PHOSPHOROUS 2.6 mg/dL (2.5-4.9); SGOT/AST 100 U/L (15-37)
[2022-06-19 08:10] LABS: BILIRUBIN,TOTAL 1.1 mg/dL (0.2-1); TOT PROT 6.5 g/dl (6.4-8.2)
[2022-06-19 08:11] LABS: ALK PHOS 60 U/L (45-117)
[2022-06-19 08:27] LABS: ANION GAP 12 MMOL/L (8-16); CALCIUM 8.3 mg/dL (8.5-10.1)
[2022-06-19] MEDS ORDERED: POTASSIUM CHLORIDE TABS 20 MEQ TABLET.ER (FP) PO ONE (10:49)
[2022-06-19] MEDS: KCL 10 MEQ IVPB 10 MEQ/100 ML INFUS.BAG IVPB SCH ×4 (11:02→23:43)
[2022-06-19] MEDS ORDERED: MAGNESIUM SULF 50% (8.12 MEQ/2 ML-1 GM VIAL) IVPB ONE (11:45)
[2022-06-19 13:17] LABS: CHLORIDE 101 mmol/L (98-107); SODIUM 139 mmol/L (136-145)
[2022-06-19 13:18] LABS: CALCIUM 8.5 mg/dL (8.5-10.1)
[2022-06-19 13:19] LABS: BLOOD UREA NITROGEN 11.2 mg/dL (7-18); CO2 27 mmol/L (21-32); GLUCOSE,RANDOM 93 mg/dL (74-106)
[2022-06-19 13:22] LABS: CREATININE 1.3 mg/dL (0.55-1.3)
[2022-06-19 13:26] LABS: ANION GAP 11 MMOL/L (8-16)
[2022-06-19 13:43] LABS: HIV INTERPRETATION NEGATIVE (NEGATIVE)
[2022-06-19] MEDS ORDERED: MAG HYDROX/AL HYDROX/SIMETH 30 ML UNIT-DOSE CUP PO ONE ×2 (16:07→20:42)
[2022-06-19 19:42] LABS: BLOOD UREA NITROGEN 10.6 mg/dL (7-18); CALCIUM 8.6 mg/dL (8.5-10.1)
[2022-06-19 19:46] LABS: CREATININE 1.3 mg/dL (0.55-1.3)
[2022-06-20] MEDS: LACTATED RINGERS SOLUTION 1,000 ML/1,000 ML INFUS.BAG IV SCH (01:15)
[2022-06-20] MEDS: KCL 10 MEQ IVPB 10 MEQ/100 ML INFUS.BAG IVPB SCH (01:15)
[2022-06-20 07:53] LABS: HEMATOCRIT 29.1 % (35.4-49); MCH 34.1 pg (25.7-33.7); MCHC 34.6 g/dl (32.0-35.9); MEAN CELL VOLUME 98.6 fl (80-96); MEAN PLT VOLUME 8.9 fl (7.5-11.1); PLATELET COUNT 105 10^3/uL (134-434); RBC 2.95 M/mm3 (4.00-5.60); RDW 17.9 % (11.9-15.9); WHITE BLOOD COUNT 3.8 K/mm3 (4.0-10.0)
[2022-06-20 08:44] LABS: ALBUMIN 3.1 g/dl (3.4-5.0)
[2022-06-20 08:45] LABS: CALCIUM 8.6 mg/dL (8.5-10.1)
[2022-06-20 08:46] LABS: MAGNESIUM 2.1 mg/dL (1.8-2.4)
[2022-06-20 08:50] LABS: BILIRUBIN,TOTAL 0.7 mg/dL (0.2-1); TOT PROT 6.5 g/dl (6.4-8.2)
[2022-06-20 08:59] LABS: BLOOD UREA NITROGEN 7.4 mg/dL (7-18); PHOSPHOROUS 1.2 mg/dL (2.5-4.9)
[2022-06-20] MEDS: THIAMINE HCL 100 MG TABLET (FP) PO SCH (09:31)
[2022-06-20] MEDS: PANTOPRAZOLE 40 MG TABLET PO SCH (14:23)
[2022-06-20] MEDS: METOPROLOL TARTRATE 25 MG TABLET (FP) PO SCH ×2 (14:23→22:04)
[2022-06-21] MEDS: LACTATED RINGERS SOLUTION 1,000 ML/1,000 ML INFUS.BAG IV SCH (04:28)
[2022-06-21 07:46] LABS: HEMATOCRIT 30.1 % (35.4-49); HEMOGLOBIN 10.3 GM/dL (11.7-16.9); MCH 33.9 pg (25.7-33.7); MCHC 34.3 g/dl (32.0-35.9); MEAN CELL VOLUME 98.8 fl (80-96); MEAN PLT VOLUME 9.2 fl (7.5-11.1); PLATELET COUNT 117 10^3/uL (134-434); RBC 3.05 M/mm3 (4.00-5.60); WHITE BLOOD COUNT 5.7 K/mm3 (4.0-10.0)
[2022-06-21 08:07] LABS: CHLORIDE 102 mmol/L (98-107); SODIUM 136 mmol/L (136-145)
[2022-06-21 08:09] LABS: ALBUMIN 2.9 g/dl (3.4-5.0); ANION GAP 7 MMOL/L (8-16); BLOOD UREA NITROGEN 4.8 mg/dL (7-18); CALCIUM 8.6 mg/dL (8.5-10.1); CO2 28 mmol/L (21-32); GLUCOSE,RANDOM 83 mg/dL (74-106); MAGNESIUM 1.5 mg/dL (1.8-2.4)
[2022-06-21 08:12] LABS: SGOT/AST 85 U/L (15-37); SGPT/ALT 36 U/L (13-61)
[2022-06-21 08:14] LABS: TOT PROT 6.6 g/dl (6.4-8.2)
[2022-06-21 08:15] LABS: ALK PHOS 58 U/L (45-117)
[2022-06-21 08:27] LABS: PHOSPHOROUS 1.1 mg/dL (2.5-4.9)
[2022-06-21] MEDS ORDERED: MAGNESIUM 2GM/50ML STERILE WATER IVPB IVPB ONE (09:06)
[2022-06-21] MEDS: PANTOPRAZOLE 40 MG TABLET PO SCH (09:33)
[2022-06-21] MEDS: METOPROLOL TARTRATE 25 MG TABLET (FP) PO SCH ×2 (09:33→22:01)
[2022-06-21] MEDS: THIAMINE HCL 100 MG TABLET (FP) PO SCH (09:33)
[2022-06-21] MEDS: NAPH,MB-DB/K PH,MBDB POWDER PACKET PO SCH ×2 (13:24→22:01)
[2022-06-21] MEDS: amLODIPine BESYLATE 5 MG TABLET (FP) PO SCH (13:25)
[2022-06-21 15:26] LABS: MAGNESIUM 2.5 mg/dL (1.8-2.4)
[2022-06-21 15:30] LABS: PHOSPHOROUS 1.7 mg/dL (2.5-4.9)
[2022-06-21] MEDS ORDERED: COLCHICINE 0.6 MG CAP PO ONE (21:00)
[2022-06-22] MEDS: NAPH,MB-DB/K PH,MBDB POWDER PACKET PO SCH ×3 (06:36→21:37)
[2022-06-22 08:24] LABS: HEMATOCRIT 28.6 % (35.4-49); HEMOGLOBIN 9.7 GM/dL (11.7-16.9); MCH 33.8 pg (25.7-33.7); MCHC 33.9 g/dl (32.0-35.9); MEAN CELL VOLUME 99.5 fl (80-96); MEAN PLT VOLUME 9.7 fl (7.5-11.1); PLATELET COUNT 150 10^3/uL (134-434); RBC 2.87 M/mm3 (4.00-5.60); RDW 18.2 % (11.9-15.9); WHITE BLOOD COUNT 6.1 K/mm3 (4.0-10.0)
[2022-06-22 08:35] LABS: ALBUMIN 2.6 g/dl (3.4-5.0); BLOOD UREA NITROGEN 9.6 mg/dL (7-18); CALCIUM 8.6 mg/dL (8.5-10.1); MAGNESIUM 1.8 mg/dL (1.8-2.4)
[2022-06-22 08:38] LABS: CREATININE 1.1 mg/dL (0.55-1.3); PHOSPHOROUS 2.5 mg/dL (2.5-4.9)
[2022-06-22 08:40] LABS: BILIRUBIN,TOTAL 0.7 mg/dL (0.2-1); TOT PROT 6.1 g/dl (6.4-8.2)
[2022-06-22 09:03] LABS: URIC ACID 7.5 mg/dL (2.6-7.2)
[2022-06-22] MEDS ORDERED: THIAMINE HCL 200 MG/2 ML VIAL IVPB SCH (10:00)
[2022-06-22] MEDS: COLCHICINE 0.6 MG TAB PO SCH (10:45)
[2022-06-22] MEDS: amLODIPine BESYLATE 5 MG TABLET (FP) PO SCH (10:46)
[2022-06-22] MEDS: PANTOPRAZOLE 40 MG TABLET PO SCH (10:46)
[2022-06-22] MEDS: METOPROLOL TARTRATE 25 MG TABLET (FP) PO SCH ×2 (10:46→21:37)
[2022-06-22] MEDS: THIAMINE HCL 100 MG TABLET (FP) PO SCH (10:46)
[2022-06-22] MEDS ORDERED: NAPROXEN 500 MG TABLET PO SCH (11:15)
[2022-06-22] MEDS ORDERED: PATIENT'S OWN MEDICATION (NON-FORMULARY) (Omeprazole 20 MG Capsule.Dr) PO SCH (13:45)
[2022-06-22] MEDS: FOLIC ACID 1 MG TABLET (FP) PO SCH (14:18)
[2022-06-22] MEDS: NAPROXEN 500 MG TABLET PO SCH ×2 (15:18→21:37)
[2022-06-22] MEDS ORDERED: ERGOCALCIFEROL (VIT D2) 50,000 UNIT (1.25 MG) CAPSULE PO SCH (16:00)
[2022-06-22] MEDS ORDERED: DULoxetine HCL 30 MG CAPSULE.DR PO SCH (22:00)
[2022-06-23 05:34] VITALS: RESP 18
[2022-06-23] MEDS: NAPH,MB-DB/K PH,MBDB POWDER PACKET PO SCH (06:23)
[2022-06-23 08:01] LABS: HEMATOCRIT 27.1 % (35.4-49); HEMOGLOBIN 9.2 GM/dL (11.7-16.9); MCH 33.7 pg (25.7-33.7); MCHC 34.1 g/dl (32.0-35.9); MEAN PLT VOLUME 9.7 fl (7.5-11.1); PLATELET COUNT 176 10^3/uL (134-434); RBC 2.74 M/mm3 (4.00-5.60); RDW 17.9 % (11.9-15.9); WHITE BLOOD COUNT 5.7 K/mm3 (4.0-10.0)
[2022-06-23 08:20] LABS: CALCIUM 8.5 mg/dL (8.5-10.1)
[2022-06-23 08:21] LABS: ALBUMIN 2.6 g/dl (3.4-5.0); BLOOD UREA NITROGEN 15.6 mg/dL (7-18); MAGNESIUM 1.6 mg/dL (1.8-2.4)
[2022-06-23 08:24] LABS: CREATININE 1.3 mg/dL (0.55-1.3); PHOSPHOROUS 3.3 mg/dL (2.5-4.9)
[2022-06-23 08:25] LABS: BILIRUBIN,TOTAL 0.5 mg/dL (0.2-1); TOT PROT 5.9 g/dl (6.4-8.2)
[2022-06-23] MEDS ORDERED: MAGNESIUM SULF 50% (8.12 MEQ/2 ML-1 GM VIAL) IVPB ONE (08:32)
[2022-06-23] MEDS: COLCHICINE 0.6 MG TAB PO SCH (09:28)
[2022-06-23] MEDS: FOLIC ACID 1 MG TABLET (FP) PO SCH (09:29)
[2022-06-23] MEDS: amLODIPine BESYLATE 5 MG TABLET (FP) PO SCH (09:29)
[2022-06-23] MEDS: THIAMINE HCL 100 MG TABLET (FP) PO SCH (09:29)
[2022-06-23] MEDS: PANTOPRAZOLE 40 MG TABLET PO SCH (09:29)
[2022-06-23] MEDS: METOPROLOL TARTRATE 25 MG TABLET (FP) PO SCH (09:29)
[2022-06-23] MEDS ORDERED: TIOTROPIUM BROMIDE 2.5 MCG (SPIRIVA) RESPIMAT INHALER IH SCH (10:00)
[2022-06-23 15:36] VITALS: BP 128/88; PULSE 60; TEMP 98.1
== END 2022-06-23 16:45 | disposition home or self-care (01) | DRG 775 ==
LOC: JER 17:27 → JERBED 20:11 → J4W 22:45
PROVIDERS: ADMIT Internal Medicine; ATTEND Internal Medicine
DX: F10.20 Alcohol dependence, uncomplicated (principal); I95.1 Orthostatic hypotension; E87.3 Alkalosis; I24.8 Other forms of acute ischemic heart disease; E83.39 Other disorders of phosphorus metabolism; E83.42 Hypomagnesemia; G62.1 Alcoholic polyneuropathy; E87.6 Hypokalemia; F17.210 Nicotine dependence, cigarettes, uncomplicated; I10 Essential (primary) hypertension; M10.9 Gout, unspecified; R26.0 Ataxic gait; R29.6 Repeated falls; E86.0 Dehydration; D61.818 Other pancytopenia
CPT/HCPCS: 0241U-QW; 36415; 70450-TC; 70553-TC; 71046-TC-FY; 72125-TC; 72170-TC-FY; 73562-TC-RT-FY; 80048; 80053; 80307; 81003; 82607; 82803; 83735; 83880; 84100; 84443; 84484; 84550; 85025; 85027; 85610; 85651; 85730; 87389; 93005; 93010; 93306-TC; 93971-TC; 97116-GP; 97161-GP; 99285-25

== ENCOUNTER 2022-08-05 16:27 | Emergency (ER) | payer OTHER ==
[2022-08-05 16:50] VITALS: BMI 30.4
[2022-08-05] MEDS ORDERED: diazePAM CARPU-JECT 10 MG/2 ML DISP.SYRIN IVPUSH ONE ×2 (17:12→19:00)
[2022-08-05] MEDS ORDERED: SODIUM CHLORIDE 0.9% 500 ML INFUS.BAG IV ONE (17:13)
[2022-08-05] MEDS ORDERED: diazePAM CARPU-JECT 10 MG/2 ML DISP.SYRIN ONE ×2 (17:17→19:52)
[2022-08-05] MEDS ORDERED: THIAMINE HCL 200 MG/2 ML VIAL IVPB ONE (17:48)
[2022-08-05] MEDS ORDERED: THIAMINE HCL 200 MG/2 ML VIAL ONE (17:59)
[2022-08-05 18:21] LABS: BASO % 0.2 % (0-2.0); EOS % 0.2 % (0-4.5); HEMATOCRIT 35.4 % (35.4-49); HEMOGLOBIN 12.2 GM/dL (11.7-16.9); LYMPH % 8.9 % (8-40); MCH 32.6 pg (25.7-33.7); MCHC 34.3 g/dl (32.0-35.9); MEAN CELL VOLUME 94.9 fl (80-96); MEAN PLT VOLUME 9.6 fl (7.5-11.1); MONO % 6.8 % (3.8-10.2); NEUT % 83.9 % (42.8-82.8); PLATELET COUNT 142 10^3/uL (134-434); RBC 3.73 M/mm3 (4.00-5.60); RDW 16.8 % (11.9-15.9); WHITE BLOOD COUNT 6.3 K/mm3 (4.0-10.0)
[2022-08-05 18:49] LABS: CHLORIDE 98 mmol/L (98-107); SODIUM 138 mmol/L (136-145)
[2022-08-05 18:52] LABS: ALBUMIN 3.4 g/dl (3.4-5.0); ANION GAP 12 MMOL/L (8-16); CALCIUM 9.3 mg/dL (8.5-10.1); CO2 28 mmol/L (21-32); GLUCOSE,RANDOM 92 mg/dL (74-106); MAGNESIUM 1.7 mg/dL (1.8-2.4)
[2022-08-05 18:55] LABS: SGOT/AST 207 U/L (15-37); SGPT/ALT 50 U/L (13-61)
[2022-08-05 18:57] LABS: BILIRUBIN,TOTAL 1.7 mg/dL (0.2-1); CREATININE 1.2 mg/dL (0.55-1.3); TOT PROT 8.2 g/dl (6.4-8.2)
[2022-08-05 18:58] LABS: ALK PHOS 95 U/L (45-117)
[2022-08-05] MEDS ORDERED: MAGNESIUM SULF 50% (8.12 MEQ/2 ML-1 GM VIAL) IVPB ONE (19:22)
[2022-08-05] MEDS ORDERED: levETIRAcetam 500 MG/5 ML INJECTION VIAL IVPB ONE ×2 (19:42→20:18)
[2022-08-05] MEDS ORDERED: MAGNESIUM 1GM/D5W - 1 GM/100 ML IVPB IVPB ONE (19:52)
[2022-08-05 20:21] LABS: EPI CELLS 12 /uL (0-25.1); HYALINE CASTS 4 /uL (0-3.1); PH,URINE 5.5 (5.0-8.0); URINE APPEARANCE CLEAR; URINE BACTERIA 0 /uL (0-1359); URINE BILIRUBIN 1+ (NEGATIVE); URINE COLOR DK YELLOW; URINE GLUCOSE (UA) NEGATIVE (NEGATIVE); URINE KETONE 1+ (NEGATIVE); URINE LEUK ESTERASE TRACE (NEGATIVE); URINE NITRITE NEGATIVE (NEGATIVE); URINE PROTEIN 2+ (NEGATIVE); URINE RBC 19 /uL (0-23.9); URINE WBC 16 /uL (0-25.8)
[2022-08-05 20:52] VITALS: BP 142/95; PULSE 110; RESP 18; TEMP 98.4
== END 2022-08-05 21:44 | disposition short-term general hospital (02) ==
LOC: JER 16:27
PROC: 3E033GC Introduction of Other Therapeutic Substance into Peripheral Vein, Percutaneous Approach (ICD-10-PCS; principal; 2022-08-05)
PROC: 3E033GC Introduction of Other Therapeutic Substance into Peripheral Vein, Percutaneous Approach (ICD-10-PCS; 2022-08-05)
PROC: 3E033GC Introduction of Other Therapeutic Substance into Peripheral Vein, Percutaneous Approach (ICD-10-PCS; 2022-08-05)
PROC: 3E033GC Introduction of Other Therapeutic Substance into Peripheral Vein, Percutaneous Approach (ICD-10-PCS; 2022-08-05)
PROC: 3E033GC Introduction of Other Therapeutic Substance into Peripheral Vein, Percutaneous Approach (ICD-10-PCS; 2022-08-05)
DX: S06.5X0A Traumatic subdural hemorrhage without loss of consciousness, initial encounter (principal); R51.9 Headache, unspecified; M54.2 Cervicalgia; M54.50 Low back pain, unspecified; R25.1 Tremor, unspecified; W19.XXXA Unspecified fall, initial encounter; Z20.822 Contact with and (suspected) exposure to COVID-19
CPT/HCPCS: 0241U-QW; 36415; 70450-TC; 70486-TC; 71045-TC-FY; 72125-TC; 72128-TC; 72131-TC; 72170-TC-FY; 80053; 80307; 81003; 82550; 82553; 82962; 83735; 84484; 85025; 87086; 93005; 93010; 99285-25

== ENCOUNTER 2022-08-19 13:13 | Inpatient (IN) | payer OTHER ==
[2022-08-19] MEDS ORDERED: diazePAM CARPU-JECT 10 MG/2 ML DISP.SYRIN IVPUSH ONE (13:44)
[2022-08-19] MEDS ORDERED: diazePAM CARPU-JECT 10 MG/2 ML DISP.SYRIN ONE (14:02)
[2022-08-19] MEDS ORDERED: dilTIAZem HCL 50 MG/10 ML - 10 ML VIAL IVPUSH ONE ×2 (14:33→17:29)
[2022-08-19] MEDS ORDERED: dilTIAZem HCL 30 MG TABLET PO ONE (14:34)
[2022-08-19] MEDS ORDERED: dilTIAZem HCL 125 MG/25 ML - 25 ML VIAL ONE (14:39)
[2022-08-19] MEDS ORDERED: dilTIAZem HCL 30 MG TABLET ONE (14:39)
[2022-08-19] MEDS ORDERED: METOPROLOL TARTRATE 5 MG/5 ML VIAL IVPUSH ONE ×5 (14:51→15:54)
[2022-08-19] MEDS ORDERED: METOPROLOL TARTRATE 5 MG/5 ML VIAL ONE ×5 (14:53→15:50)
[2022-08-19 15:01] LABS: PH,URINE 5.5 (5.0-8.0); URINE APPEARANCE CLEAR; URINE BILIRUBIN NEGATIVE (NEGATIVE); URINE COLOR YELLOW; URINE GLUCOSE (UA) NEGATIVE (NEGATIVE); URINE KETONE TRACE (NEGATIVE); URINE LEUK ESTERASE NEGATIVE (NEGATIVE); URINE NITRITE NEGATIVE (NEGATIVE); URINE PROTEIN TRACE (NEGATIVE)
[2022-08-19] MEDS ORDERED: METOPROLOL TARTRATE 25 MG TABLET (FP) PO ONE ×2 (15:01→15:54)
[2022-08-19] MEDS ORDERED: METOPROLOL TARTRATE 25 MG TABLET (FP) ONE ×2 (15:04→16:38)
[2022-08-19 15:08] LABS: INR 0.99 (0.83-1.09); PROTHROMBIN TIME (PATIENT) 11.5 SEC (9.7-13.0)
[2022-08-19 15:11] LABS: ACTIVATED PTT 30.2 SECONDS (25.2-36.5)
[2022-08-19 15:14] LABS: BASO % 0.6 % (0-2.0); EOS % 0.2 % (0-4.5); HEMATOCRIT 32.5 % (35.4-49); LYMPH % 12.7 % (8-40); MCH 32.5 pg (25.7-33.7); MCHC 33.8 g/dl (32.0-35.9); MEAN CELL VOLUME 96.4 fl (80-96); MEAN PLT VOLUME 8.6 fl (7.5-11.1); MONO % 5.3 % (3.8-10.2); NEUT % 81.2 % (42.8-82.8); PLATELET COUNT 238 10^3/uL (134-434); RBC 3.37 M/mm3 (4.00-5.60); RDW 15.9 % (11.9-15.9); WHITE BLOOD COUNT 7.3 K/mm3 (4.0-10.0)
[2022-08-19 15:27] LABS: ALBUMIN 3.3 g/dl (3.4-5.0); BLOOD UREA NITROGEN 13.4 mg/dL (7-18); CALCIUM 9.1 mg/dL (8.5-10.1); MAGNESIUM 1.7 mg/dL (1.8-2.4)
[2022-08-19 15:31] LABS: CREATININE 1.5 mg/dL (0.55-1.3)
[2022-08-19] MEDS ORDERED: MAGNESIUM SULF 50% (8.12 MEQ/2 ML-1 GM VIAL) IVPB ONE (15:31)
[2022-08-19 15:32] LABS: BILIRUBIN,TOTAL 0.5 mg/dL (0.2-1); TOT PROT 7.9 g/dl (6.4-8.2)
[2022-08-19] MEDS ORDERED: MAGNESIUM SULFATE IN WATER 2 GM/50 ML IVPB IVPB ONE (15:34)
[2022-08-19] MEDS ORDERED: KCL 10 MEQ IVPB 10 MEQ/100 ML INFUS.BAG IVPB ONE ×3 (16:28→18:17)
[2022-08-19] MEDS: KCL 10 MEQ IVPB 10 MEQ/100 ML INFUS.BAG IVPB SCH ×3 (16:36→18:20)
[2022-08-19] MEDS ORDERED: FOLIC ACID INJECTION - 1 MG, THIAMINE HCL 100 MG, MULTIVIT INJECTION ADULT 10 ML in SOD... IVPB ONE ×2 (16:36→17:20)
[2022-08-19] MEDS ORDERED: THIAMINE HCL 200 MG/2 ML VIAL IVPB ONE (16:40)
[2022-08-19] MEDS ORDERED: FOLIC ACID 1 MG TABLET (FP) PO ONE (16:40)
[2022-08-19] MEDS ORDERED: MULTIVITAMINS (DAILY MVI) TABLET (FP) PO ONE (16:40)
[2022-08-19] MEDS ORDERED: DEXTROSE 5%-LACTATED RINGERS 1,000 ML IV SCH (16:45)
[2022-08-19] MEDS ORDERED: dilTIAZem HCL 50 MG/10 ML - 10 ML VIAL ONE (17:48)
[2022-08-19] MEDS ORDERED: POTASSIUM CHLORIDE ORAL LIQUID 20 MEQ/15 ML PO ONE (18:01)
[2022-08-19] MEDS ORDERED: POTASSIUM CHLORIDE ORAL LIQUID 20 MEQ/15 ML ONE (18:17)
[2022-08-19 21:16] VITALS: BMI 23.9
[2022-08-19] MEDS ORDERED: CHLORHEXIDINE GLUCONATE 4% CLEANSER FOR DECOLONIZATION TP SCH (22:00)
[2022-08-19 22:07] LABS: CALCIUM 8.9 mg/dL (8.5-10.1)
[2022-08-19 22:08] LABS: MAGNESIUM 2.2 mg/dL (1.8-2.4)
[2022-08-19 22:11] LABS: CREATININE 1.3 mg/dL (0.55-1.3); PHOSPHOROUS 1.3 mg/dL (2.5-4.9)
[2022-08-19 22:13] LABS: BILIRUBIN,TOTAL 0.7 mg/dL (0.2-1); TOT PROT 7.1 g/dl (6.4-8.2)
[2022-08-19 22:15] LABS: LACTIC ACID 4.9 mmol/L (0.4-2.0)
[2022-08-19] MEDS ORDERED: LACTATED RINGERS SOLUTION 1000 ML INFUS.BAG IV ONE (22:19)
[2022-08-19] MEDS ORDERED: SODIUM PHOSPHATE - 30 MM in DEXTROSE 5%-WATER - 250 ML IVPB ONE (22:21)
[2022-08-19] MEDS: MUPIROCIN 2% TOPICAL OINTMENT FOR DECOLONIZATION NS SCH (23:00)
[2022-08-19] MEDS ORDERED: LACTATED RINGERS SOLUTION 1000 ML INFUS.BAG IV STA (23:31)
[2022-08-20 02:59] LABS: LACTIC ACID 2.9 mmol/L (0.4-2.0)
[2022-08-20 08:04] LABS: CALCIUM 8.2 mg/dL (8.5-10.1)
[2022-08-20 08:05] LABS: ALBUMIN 2.7 g/dl (3.4-5.0); BLOOD UREA NITROGEN 10.4 mg/dL (7-18); MAGNESIUM 1.7 mg/dL (1.8-2.4)
[2022-08-20 08:06] LABS: PHOSPHOROUS 3.3 mg/dL (2.5-4.9)
[2022-08-20 08:07] LABS: BILIRUBIN,TOTAL 0.9 mg/dL (0.2-1); TOT PROT 6.2 g/dl (6.4-8.2)
[2022-08-20 08:12] LABS: BASO % 0.6 % (0-2.0); EOS % 0.9 % (0-4.5); HEMATOCRIT 26.6 % (35.4-49); LYMPH % 19.2 % (8-40); MCH 32.2 pg (25.7-33.7); MCHC 33.6 g/dl (32.0-35.9); MEAN CELL VOLUME 95.8 fl (80-96); MEAN PLT VOLUME 8.4 fl (7.5-11.1); MONO % 5.8 % (3.8-10.2); NEUT % 73.5 % (42.8-82.8); PLATELET COUNT 154 10^3/uL (134-434); RBC 2.78 M/mm3 (4.00-5.60); WHITE BLOOD COUNT 7.1 K/mm3 (4.0-10.0)
[2022-08-20] MEDS ORDERED: MAGNESIUM SULF 50% (8.12 MEQ/2 ML-1 GM VIAL) IVPB ONE (09:18)
[2022-08-20] MEDS: MUPIROCIN 2% TOPICAL OINTMENT FOR DECOLONIZATION NS SCH (09:40)
[2022-08-20] MEDS ORDERED: ACETAMINOPHEN 325 MG TABLET (FP) PO PRN ×3 (10:39→19:00)
[2022-08-20] MEDS ORDERED: ALBUTEROL SO4 HFA INHALER IH PRN ×2 (12:06→19:00)
[2022-08-20] MEDS ORDERED: TIOTROPIUM BROMIDE 2.5 MCG (SPIRIVA) RESPIMAT INHALER IH SCH (12:15)
[2022-08-20] MEDS ORDERED: METOPROLOL TARTRATE 25 MG TABLET (FP) PO SCH (12:15)
[2022-08-20] MEDS: METOPROLOL TARTRATE 25 MG TABLET (FP) PO SCH (21:31)
[2022-08-20] MEDS ORDERED: CHLORHEXIDINE GLUCONATE 4% CLEANSER FOR DECOLONIZATION TP SCH (22:00)
[2022-08-20] MEDS ORDERED: MUPIROCIN 2% TOPICAL OINTMENT FOR DECOLONIZATION NS SCH (22:00)
[2022-08-21 07:33] LABS: BASO % 0.7 % (0-2.0); EOS % 1.4 % (0-4.5); HEMATOCRIT 26.5 % (35.4-49); HEMOGLOBIN 9.2 GM/dL (11.7-16.9); LYMPH % 21.3 % (8-40); MCHC 34.9 g/dl (32.0-35.9); MEAN CELL VOLUME 94.6 fl (80-96); MEAN PLT VOLUME 9.3 fl (7.5-11.1); MONO % 5.8 % (3.8-10.2); NEUT % 70.8 % (42.8-82.8); PLATELET COUNT 148 10^3/uL (134-434); RDW 15.1 % (11.9-15.9); WHITE BLOOD COUNT 6.4 K/mm3 (4.0-10.0)
[2022-08-21 08:05] LABS: ALBUMIN 2.8 g/dl (3.4-5.0); BLOOD UREA NITROGEN 12.5 mg/dL (7-18); CALCIUM 8.5 mg/dL (8.5-10.1)
[2022-08-21 08:06] LABS: MAGNESIUM 1.7 mg/dL (1.8-2.4)
[2022-08-21 08:08] LABS: CREATININE 1.2 mg/dL (0.55-1.3)
[2022-08-21 08:09] LABS: BILIRUBIN,TOTAL 0.6 mg/dL (0.2-1); TOT PROT 6.4 g/dl (6.4-8.2)
[2022-08-21] MEDS: METOPROLOL TARTRATE 25 MG TABLET (FP) PO SCH ×2 (09:49→21:29)
[2022-08-21] MEDS: amLODIPine BESYLATE 5 MG TABLET (FP) PO SCH (09:49)
[2022-08-21] MEDS: MAGNESIUM SULF 50% (8.12 MEQ/2 ML-1 GM VIAL) IVPB SCH ×2 (09:49→12:59)
[2022-08-21] MEDS: TIOTROPIUM BROMIDE 2.5 MCG (SPIRIVA) RESPIMAT INHALER IH SCH (09:50)
[2022-08-21] MEDS: THIAMINE HCL 100 MG TABLET (FP) PO SCH (09:50)
[2022-08-21] MEDS ORDERED: POTASSIUM PHOSPHATE 30 MM in DEXTROSE 5%-WATER - 500 ML IVPB ONE (10:30)
[2022-08-21] MEDS: PANTOPRAZOLE 40 MG TABLET PO SCH (12:45)
[2022-08-21] MEDS ORDERED: NAPH,MB-DB/K PH,MBDB POWDER PACKET PO SCH (14:00)
[2022-08-22] MEDS: amLODIPine BESYLATE 5 MG TABLET (FP) PO SCH (09:16)
[2022-08-22] MEDS: TIOTROPIUM BROMIDE 2.5 MCG (SPIRIVA) RESPIMAT INHALER IH SCH (09:17)
[2022-08-22] MEDS: PANTOPRAZOLE 40 MG TABLET PO SCH (09:17)
[2022-08-22] MEDS: THIAMINE HCL 100 MG TABLET (FP) PO SCH (09:17)
[2022-08-22] MEDS ORDERED: ASPIRIN 81 MG CHEWABLE TABLETS PO SCH (10:00)
[2022-08-22] MEDS ORDERED: METOPROLOL TARTRATE 50 MG TABLET (FP) PO SCH (10:00)
[2022-08-22] MEDS ORDERED: METOPROLOL TARTRATE 25 MG TABLET (FP) PO SCH (16:25)
[2022-08-22] MEDS: METOPROLOL TARTRATE 50 MG TABLET (FP) PO SCH (21:49)
[2022-08-23 07:50] LABS: HEMATOCRIT 26.8 % (35.4-49); HEMOGLOBIN 9.3 GM/dL (11.7-16.9); MCH 33.1 pg (25.7-33.7); MCHC 34.8 g/dl (32.0-35.9); MEAN CELL VOLUME 95.2 fl (80-96); MEAN PLT VOLUME 9.2 fl (7.5-11.1); PLATELET COUNT 159 10^3/uL (134-434); RBC 2.82 M/mm3 (4.00-5.60); RDW 15.7 % (11.9-15.9); WHITE BLOOD COUNT 6.5 K/mm3 (4.0-10.0)
[2022-08-23 08:21] LABS: BLOOD UREA NITROGEN 10.7 mg/dL (7-18)
[2022-08-23 08:24] LABS: CREATININE 1.1 mg/dL (0.55-1.3)
[2022-08-23 08:25] LABS: CALCIUM 9.3 mg/dL (8.5-10.1)
[2022-08-23 08:26] LABS: ALBUMIN 2.8 g/dl (3.4-5.0); BILIRUBIN,TOTAL 0.9 mg/dL (0.2-1); TOT PROT 6.6 g/dl (6.4-8.2)
[2022-08-23] MEDS ORDERED: POTASSIUM CHLORIDE ORAL LIQUID 20 MEQ/15 ML PO ONE ×3 (08:33→14:30)
[2022-08-23] MEDS ORDERED: ASPIRIN COATED 81 MG TABLET.EC PO SCH (10:00)
[2022-08-23] MEDS ORDERED: POTASSIUM CHLORIDE TABS 10 MEQ TABLET.ER (FP) PO SCH (10:00)
[2022-08-23] MEDS: THIAMINE HCL 100 MG TABLET (FP) PO SCH (10:28)
[2022-08-23] MEDS: METOPROLOL TARTRATE 50 MG TABLET (FP) PO SCH (10:28)
[2022-08-23] MEDS: PANTOPRAZOLE 40 MG TABLET PO SCH (10:28)
[2022-08-23] MEDS: amLODIPine BESYLATE 5 MG TABLET (FP) PO SCH (10:28)
[2022-08-23] MEDS: TIOTROPIUM BROMIDE 2.5 MCG (SPIRIVA) RESPIMAT INHALER IH SCH (10:29)
[2022-08-23] MEDS ORDERED: PATIENT'S OWN MEDICATION (NON-FORMULARY) (Umeclidinium Bromide [Incruse Ellipta] 62.5 MCG IH SCH (11:00)
[2022-08-23 12:24] VITALS: BP 130/73; PULSE 81; RESP 22; TEMP 97.8
[2022-08-23] MEDS ORDERED: amLODIPine BESYLATE 5 MG TABLET (FP) PO ONE (22:00)
[2022-08-24] MEDS ORDERED: amLODIPine BESYLATE 10 MG TABLET (FP) PO SCH (10:00)
== END 2022-08-23 15:45 | disposition home or self-care (01) | DRG 201 ==
LOC: JER 13:13 → JERBED 17:21 → JICU 20:23 → J4W 08-20 17:00 → JICU 08-20 17:18 → J4W 08-20 18:39
PROVIDERS: ADMIT Internal Medicine; ATTEND Internal Medicine
DX: I48.0 Paroxysmal atrial fibrillation (principal); J45.909 Unspecified asthma, uncomplicated; E78.00 Pure hypercholesterolemia, unspecified; E87.20 Acidosis, unspecified; J44.9 Chronic obstructive pulmonary disease, unspecified; I10 Essential (primary) hypertension; E78.5 Hyperlipidemia, unspecified; G47.33 Obstructive sleep apnea (adult) (pediatric); M17.12 Unilateral primary osteoarthritis, left knee; M54.50 Low back pain, unspecified; G47.30 Sleep apnea, unspecified; I25.10 Atherosclerotic heart disease of native coronary artery without angina pectoris; I24.8 Other forms of acute ischemic heart disease; N40.0 Benign prostatic hyperplasia without lower urinary tract symptoms; R29.6 Repeated falls; K29.60 Other gastritis without bleeding; E87.6 Hypokalemia; E83.42 Hypomagnesemia; E83.39 Other disorders of phosphorus metabolism; R55 Syncope and collapse; M54.16 Radiculopathy, lumbar region; G60.8 Other hereditary and idiopathic neuropathies; W18.39XA Other fall on same level, initial encounter; Y92.098 Other place in other non-institutional residence as the place of occurrence of the external cause
CPT/HCPCS: 0241U-QW; 36415; 70450-TC; 71045-TC-FY; 72125-TC; 80053; 81003; 83605; 83735; 84100; 84436; 84443; 84484; 85025; 85027; 85610; 85730; 87040; 87086; 93005; 93010; 93306-TC; 97116-GP; 97162-GP; 99285-25

== ENCOUNTER 2022-08-26 16:56 | Inpatient (IN) | payer OTHER ==
[2022-08-26 17:55] VITALS: BMI 25.0
[2022-08-26] MEDS ORDERED: NICOTINE 7 MG/24 HOURS TOPICAL PATCH TD PRN (18:35)
[2022-08-26] MEDS ORDERED: DICYCLOMINE HCL 10 MG CAPSULE PO PRN (18:35)
[2022-08-26] MEDS ORDERED: MAGNESIUM HYDROX 2400MG/30ML ORAL SUSPENSION 30 ML CUP PO PRN (18:35)
[2022-08-26] MEDS ORDERED: ACETAMINOPHEN 325 MG TABLET (FP) PO PRN (18:35)
[2022-08-26] MEDS ORDERED: LOPERAMIDE HCL 2 MG CAPSULE PO PRN (18:35)
[2022-08-26] MEDS ORDERED: POLYETHYLENE GLYCOL (HEALTHYLAX) 3350 17 GM PACKET PO PRN (18:35)
[2022-08-26] MEDS ORDERED: P-EPHED 60MG/TRIPROLIDI 2.5MG TABLET PO PRN (18:35)
[2022-08-26] MEDS ORDERED: guaiFENesin 600 MG TABLET.ER (FP) PO PRN (18:35)
[2022-08-26] MEDS ORDERED: ONDANSETRON *ODT* 4 MG TABLET SL PRN (18:35)
[2022-08-26] MEDS ORDERED: BENZONATATE 200 MG CAPSULE PO PRN (18:35)
[2022-08-26] MEDS ORDERED: BISMUTH SUBSALICYLATE 524 MG/30 ML PO PRN (18:35)
[2022-08-26] MEDS ORDERED: BENZOCAINE/MENTHOL (CHLORASEPTIC ) LOZENGE MM PRN (18:35)
[2022-08-26] MEDS ORDERED: MAG HYDROX/AL HYDROX/SIMETH 30 ML UNIT-DOSE CUP PO PRN (18:35)
[2022-08-26] MEDS ORDERED: ALBUTEROL SO4 HFA INHALER IH PRN (19:59)
[2022-08-26] MEDS: ASPIRIN COATED 81 MG TABLET.EC PO SCH (20:09)
[2022-08-26] MEDS: METOPROLOL TARTRATE 50 MG TABLET (FP) PO SCH (22:06)
[2022-08-26] MEDS: amLODIPine BESYLATE 10 MG TABLET (FP) PO SCH (22:06)
[2022-08-26] MEDS: POTASSIUM CHLORIDE TABS 20 MEQ TABLET.ER (FP) PO SCH (22:06)
[2022-08-26] MEDS: THIAMINE HCL 100 MG TABLET (FP) PO SCH (22:07)
[2022-08-27] MEDS ORDERED: chlordiazePOXIDE HCL 25 MG CAPSULE PO PRN (09:35)
[2022-08-27] MEDS ORDERED: FOLIC ACID 1 MG TABLET (FP) PO SCH (10:00)
[2022-08-27] MEDS: CELECOXIB 100 MG CAPSULE PO SCH (10:13)
[2022-08-27] MEDS: chlordiazePOXIDE HCL 25 MG CAPSULE PO SCH ×3 (10:14→22:58)
[2022-08-27] MEDS: ASPIRIN COATED 81 MG TABLET.EC PO SCH (10:14)
[2022-08-27] MEDS: METOPROLOL TARTRATE 50 MG TABLET (FP) PO SCH ×2 (10:14→22:58)
[2022-08-27] MEDS: PANTOPRAZOLE 40 MG TABLET PO SCH (10:14)
[2022-08-27] MEDS: PRENATAL VITAMINS W/ FOLIC ACID TABLET (FP) PO SCH (10:14)
[2022-08-27] MEDS: POTASSIUM CHLORIDE TABS 20 MEQ TABLET.ER (FP) PO SCH ×2 (10:32→22:57)
[2022-08-27] MEDS: PATIENT'S OWN MEDICATION (NON-FORMULARY) (Umeclidinium Bromide [Incruse Ellipta] 62.5 MCG IH SCH (11:25)
[2022-08-27 14:04] LABS: POTASSIUM 4.4 mmol/L (3.5-5.1)
[2022-08-27 14:07] LABS: ALBUMIN 2.6 g/dl (3.4-5.0); BLOOD UREA NITROGEN 21.2 mg/dL (7-18); CALCIUM 8.8 mg/dL (8.5-10.1)
[2022-08-27 14:10] LABS: CREATININE 1.5 mg/dL (0.55-1.3)
[2022-08-27 14:12] LABS: BILIRUBIN,TOTAL 0.4 mg/dL (0.2-1); TOT PROT 6.2 g/dl (6.4-8.2)
[2022-08-27 14:26] LABS: HEMATOCRIT 25.1 % (35.4-49); HEMOGLOBIN 8.6 GM/dL (11.7-16.9); MCH 32.8 pg (25.7-33.7); MCHC 34.1 g/dl (32.0-35.9); MEAN CELL VOLUME 96.2 fl (80-96); MEAN PLT VOLUME 8.2 fl (7.5-11.1); PLATELET COUNT 248 10^3/uL (134-434); RBC 2.61 M/mm3 (4.00-5.60); RDW 15.8 % (11.9-15.9); WHITE BLOOD COUNT 5.2 K/mm3 (4.0-10.0)
[2022-08-27] MEDS: THIAMINE HCL 100 MG TABLET (FP) PO SCH (22:56)
[2022-08-27] MEDS: MELATONIN 5 MG TABLETS PO PRN (22:56)
[2022-08-27] MEDS: amLODIPine BESYLATE 10 MG TABLET (FP) PO SCH (22:56)
[2022-08-28] MEDS: chlordiazePOXIDE HCL 25 MG CAPSULE PO SCH ×4 (05:39→22:10)
[2022-08-28] MEDS: PANTOPRAZOLE 40 MG TABLET PO SCH (10:46)
[2022-08-28] MEDS: METOPROLOL TARTRATE 50 MG TABLET (FP) PO SCH ×2 (10:46→22:11)
[2022-08-28] MEDS: ASPIRIN COATED 81 MG TABLET.EC PO SCH (10:46)
[2022-08-28] MEDS: PRENATAL VITAMINS W/ FOLIC ACID TABLET (FP) PO SCH (10:46)
[2022-08-28] MEDS: CELECOXIB 100 MG CAPSULE PO SCH (10:46)
[2022-08-28] MEDS: POTASSIUM CHLORIDE TABS 20 MEQ TABLET.ER (FP) PO SCH ×2 (10:47→22:10)
[2022-08-28] MEDS: PATIENT'S OWN MEDICATION (NON-FORMULARY) (Umeclidinium Bromide [Incruse Ellipta] 62.5 MCG IH SCH (10:47)
[2022-08-28] MEDS: LACTULOSE 20 GM/30 ML UDC (FOR ORAL USE ONLY) PO SCH ×3 (13:38→22:12)
[2022-08-28] MEDS: THIAMINE HCL 100 MG TABLET (FP) PO SCH (22:10)
[2022-08-28] MEDS: amLODIPine BESYLATE 10 MG TABLET (FP) PO SCH (22:11)
[2022-08-29] MEDS: chlordiazePOXIDE HCL 25 MG CAPSULE PO SCH ×4 (05:55→22:22)
[2022-08-29] MEDS: ASPIRIN COATED 81 MG TABLET.EC PO SCH (10:32)
[2022-08-29] MEDS: PANTOPRAZOLE 40 MG TABLET PO SCH (10:32)
[2022-08-29] MEDS: PRENATAL VITAMINS W/ FOLIC ACID TABLET (FP) PO SCH (10:32)
[2022-08-29] MEDS: METOPROLOL TARTRATE 50 MG TABLET (FP) PO SCH ×2 (10:32→22:21)
[2022-08-29] MEDS: CELECOXIB 100 MG CAPSULE PO SCH (10:32)
[2022-08-29] MEDS: PATIENT'S OWN MEDICATION (NON-FORMULARY) (Umeclidinium Bromide [Incruse Ellipta] 62.5 MCG IH SCH (10:33)
[2022-08-29] MEDS: LACTULOSE 20 GM/30 ML UDC (FOR ORAL USE ONLY) PO SCH ×4 (10:38→22:21)
[2022-08-29] MEDS ORDERED: POTASSIUM CHLORIDE TABS 10 MEQ TABLET.ER (FP) PO SCH (11:04)
[2022-08-29] MEDS: POTASSIUM CHLORIDE TABS 20 MEQ TABLET.ER (FP) PO SCH ×2 (14:28→22:21)
[2022-08-29] MEDS: THIAMINE HCL 100 MG TABLET (FP) PO SCH (22:21)
[2022-08-29] MEDS: amLODIPine BESYLATE 10 MG TABLET (FP) PO SCH (22:21)
[2022-08-29] MEDS: MELATONIN 5 MG TABLETS PO PRN (22:23)
[2022-08-30] MEDS ORDERED: chlordiazePOXIDE HCL 10 MG CAPSULE PO PRN
[2022-08-30] MEDS: chlordiazePOXIDE HCL 10 MG CAPSULE PO SCH ×4 (05:08→22:12)
[2022-08-30] MEDS: PANTOPRAZOLE 40 MG TABLET PO SCH (10:55)
[2022-08-30] MEDS: METOPROLOL TARTRATE 50 MG TABLET (FP) PO SCH ×2 (10:55→22:12)
[2022-08-30] MEDS: PRENATAL VITAMINS W/ FOLIC ACID TABLET (FP) PO SCH (10:55)
[2022-08-30] MEDS: CELECOXIB 100 MG CAPSULE PO SCH (10:55)
[2022-08-30] MEDS: POTASSIUM CHLORIDE TABS 20 MEQ TABLET.ER (FP) PO SCH ×2 (10:56→22:15)
[2022-08-30] MEDS: ASPIRIN COATED 81 MG TABLET.EC PO SCH (10:56)
[2022-08-30] MEDS: PATIENT'S OWN MEDICATION (NON-FORMULARY) (Umeclidinium Bromide [Incruse Ellipta] 62.5 MCG IH SCH (10:57)
[2022-08-30] MEDS: LACTULOSE 20 GM/30 ML UDC (FOR ORAL USE ONLY) PO SCH ×4 (10:57→22:15)
[2022-08-30] MEDS: amLODIPine BESYLATE 10 MG TABLET (FP) PO SCH (22:12)
[2022-08-30] MEDS: THIAMINE HCL 100 MG TABLET (FP) PO SCH (22:12)
[2022-08-30] MEDS: MELATONIN 5 MG TABLETS PO PRN (22:15)
[2022-08-31] MEDS ORDERED: chlordiazePOXIDE HCL 10 MG CAPSULE PO SCH (05:00)
[2022-08-31 09:19] VITALS: BP 121/82; PULSE 74; RESP 18; TEMP 98.1
[2022-08-31] MEDS: CELECOXIB 100 MG CAPSULE PO SCH (10:24)
[2022-08-31] MEDS: METOPROLOL TARTRATE 50 MG TABLET (FP) PO SCH (10:25)
[2022-08-31] MEDS: PATIENT'S OWN MEDICATION (NON-FORMULARY) (Umeclidinium Bromide [Incruse Ellipta] 62.5 MCG IH SCH (10:25)
[2022-08-31] MEDS: LACTULOSE 20 GM/30 ML UDC (FOR ORAL USE ONLY) PO SCH (10:25)
[2022-08-31] MEDS: PRENATAL VITAMINS W/ FOLIC ACID TABLET (FP) PO SCH (10:25)
[2022-08-31] MEDS: ASPIRIN COATED 81 MG TABLET.EC PO SCH (10:25)
[2022-08-31] MEDS: PANTOPRAZOLE 40 MG TABLET PO SCH (10:25)
[2022-09-01] MEDS ORDERED: chlordiazePOXIDE HCL 10 MG CAPSULE PO ONE (05:00)
[2022-09-02] MEDS ORDERED: ERGOCALCIFEROL (VIT D2) 50,000 UNIT (1.25 MG) CAPSULE PO SCH (10:00)
== END 2022-08-31 10:45 | disposition home or self-care (01) | DRG 775 ==
LOC: YASAS 16:56 → Y6N 19:11
PROVIDERS: ADMIT Allergy & Immunology; ATTEND Surgery
PROC: HZ2ZZZZ Detoxification Services for Substance Abuse Treatment (ICD-10-PCS; principal; 2022-08-26)
DX: F10.230 Alcohol dependence with withdrawal, uncomplicated (principal); F17.210 Nicotine dependence, cigarettes, uncomplicated; F19.282 Other psychoactive substance dependence with psychoactive substance-induced sleep disorder; E72.20 Disorder of urea cycle metabolism, unspecified; E55.9 Vitamin D deficiency, unspecified; E78.5 Hyperlipidemia, unspecified; G47.33 Obstructive sleep apnea (adult) (pediatric); I10 Essential (primary) hypertension; J43.9 Emphysema, unspecified; K21.9 Gastro-esophageal reflux disease without esophagitis; M17.12 Unilateral primary osteoarthritis, left knee; M54.50 Low back pain, unspecified; G89.29 Other chronic pain; N40.0 Benign prostatic hyperplasia without lower urinary tract symptoms; R79.89 Other specified abnormal findings of blood chemistry; Z87.820 Personal history of traumatic brain injury; Z99.89 Dependence on other enabling machines and devices; Z88.8 Allergy status to other drugs, medicaments and biological substances; Z86.16 Personal history of COVID-19
CPT/HCPCS: 36415; 80053; 82140; 85027; 86780; 93005; 93010; C9803-CS; U0003; U0005

== ENCOUNTER 2022-09-15 10:30 | Observation (INO) | payer OTHER ==
[2022-09-15 10:47] VITALS: BMI 25.0
[2022-09-15 12:49] LABS: BASO % 1.3 % (0-2.0); EOS % 1.9 % (0-4.5); HEMATOCRIT 34.7 % (35.4-49); HEMOGLOBIN 11.5 GM/dL (11.7-16.9); MCHC 33.1 g/dl (32.0-35.9); MEAN CELL VOLUME 93.4 fl (80-96); MEAN PLT VOLUME 8.5 fl (7.5-11.1); MONO % 4.8 % (3.8-10.2); PLATELET COUNT 439 10^3/uL (134-434); RBC 3.72 M/mm3 (4.00-5.60); WHITE BLOOD COUNT 6.5 K/mm3 (4.0-10.0)
[2022-09-15 13:00] LABS: INR 1.01 (0.83-1.09); PROTHROMBIN TIME (PATIENT) 11.7 SEC (9.7-13.0)
[2022-09-15 13:11] LABS: CALCIUM 10.2 mg/dL (8.5-10.1)
[2022-09-15 13:12] LABS: ALBUMIN 3.8 g/dl (3.4-5.0); MAGNESIUM 2.7 mg/dL (1.8-2.4)
[2022-09-15 13:16] LABS: BILIRUBIN,TOTAL 0.3 mg/dL (0.2-1); TOT PROT 9.4 g/dl (6.4-8.2)
[2022-09-15] MEDS ORDERED: FOLIC ACID INJECTION - 1 MG, THIAMINE HCL 100 MG, MULTIVIT INJECTION ADULT 10 ML in SOD... IVPB ONE (14:34)
[2022-09-15] MEDS ORDERED: levETIRAcetam 500 MG/5 ML INJECTION VIAL IVPB ONE ×2 (14:36→15:03)
[2022-09-15] MEDS ORDERED: THIAMINE HCL 200 MG/2 ML VIAL IVPB ONE (14:37)
[2022-09-15] MEDS ORDERED: THIAMINE HCL 200 MG/2 ML VIAL ONE ×2 (14:41→14:44)
[2022-09-15] MEDS: DEXTROSE 5%-0.45% SALINE 1,000 ML IV SCH (15:20)
[2022-09-15 15:28] LABS: VENOUS BASE EXCESS -3.1 mmol/L (-2-2); VENOUS PCO2 38.2 mmHg (38-52); VENOUS PH 7.374 (7.310-7.410)
[2022-09-15] MEDS ORDERED: ALBUTEROL SO4 HFA INHALER IH PRN (16:01)
[2022-09-15 16:05] LABS: LACTIC ACID 4.4 mmol/L (0.4-2.0)
[2022-09-15] MEDS ORDERED: PANTOPRAZOLE 40 MG TABLET PO ONE (16:49)
[2022-09-15] MEDS: PANTOPRAZOLE 40 MG TABLET PO SCH (16:50)
[2022-09-15] MEDS: levETIRAcetam 500 MG/5 ML INJECTION VIAL IVPB SCH (23:08)
[2022-09-15] MEDS: amLODIPine BESYLATE 10 MG TABLET (FP) PO SCH (23:09)
[2022-09-15] MEDS: METOPROLOL TARTRATE 50 MG TABLET (FP) PO SCH (23:09)
[2022-09-16] MEDS: DEXTROSE 5%-0.45% SALINE 1,000 ML IV SCH ×2 (03:53→13:53)
[2022-09-16 08:11] LABS: BASO % 0.9 % (0-2.0); EOS % 2.7 % (0-4.5); HEMATOCRIT 27.3 % (35.4-49); HEMOGLOBIN 9.4 GM/dL (11.7-16.9); LYMPH % 23.9 % (8-40); MCH 31.7 pg (25.7-33.7); MCHC 34.3 g/dl (32.0-35.9); MEAN CELL VOLUME 92.5 fl (80-96); MEAN PLT VOLUME 9.1 fl (7.5-11.1); NEUT % 62.5 % (42.8-82.8); PLATELET COUNT 302 10^3/uL (134-434); RBC 2.96 M/mm3 (4.00-5.60); WHITE BLOOD COUNT 6.2 K/mm3 (4.0-10.0)
[2022-09-16 08:54] LABS: BLOOD UREA NITROGEN 27.8 mg/dL (7-18); CALCIUM 8.7 mg/dL (8.5-10.1); MAGNESIUM 2.2 mg/dL (1.8-2.4)
[2022-09-16 08:57] LABS: CREATININE 1.3 mg/dL (0.55-1.3); PHOSPHOROUS 3.7 mg/dL (2.5-4.9)
[2022-09-16 08:59] LABS: BILIRUBIN,TOTAL 0.5 mg/dL (0.2-1)
[2022-09-16 09:02] LABS: ALBUMIN 2.7 g/dl (3.4-5.0); TOT PROT 6.8 g/dl (6.4-8.2)
[2022-09-16] MEDS ORDERED: THIAMINE HCL 200 MG/2 ML VIAL IVPB ONE (09:47)
[2022-09-16] MEDS ORDERED: THIAMINE HCL 500 MG in SODIUM CHLORIDE 250 ML IM ONE (10:00)
[2022-09-16] MEDS: FOLIC ACID 1 MG TABLET (FP) PO SCH (11:09)
[2022-09-16] MEDS: DULoxetine HCL 30 MG CAPSULE.DR PO SCH (11:09)
[2022-09-16] MEDS: METOPROLOL TARTRATE 50 MG TABLET (FP) PO SCH ×2 (11:10→21:59)
[2022-09-16] MEDS: PANTOPRAZOLE 40 MG TABLET PO SCH (11:10)
[2022-09-16] MEDS: levETIRAcetam 500 MG/5 ML INJECTION VIAL IVPB SCH ×2 (11:11→22:01)
[2022-09-16] MEDS: THIAMINE HCL 100 MG TABLET (FP) PO SCH (11:11)
[2022-09-16] MEDS ORDERED: THIAMINE HCL 500 MG in SODIUM CHLORIDE 250 ML IVPB ONE (11:30)
[2022-09-16] MEDS: TIOTROPIUM BROMIDE 2.5 MCG (SPIRIVA) RESPIMAT INHALER IH SCH (13:52)
[2022-09-16] MEDS ORDERED: LORazepam 2 MG/ML SDV VIAL IVPUSH ONE ×2 (14:44→17:15)
[2022-09-16] MEDS ORDERED: DEXTROSE 50%-WATER - 25 GM/50 ML VIAL IVPUSH PRN (14:46)
[2022-09-16] MEDS: amLODIPine BESYLATE 10 MG TABLET (FP) PO SCH (21:59)
[2022-09-17 07:46] LABS: BASO % 1.3 % (0-2.0); EOS % 3.4 % (0-4.5); HEMATOCRIT 26.2 % (35.4-49); LYMPH % 24.5 % (8-40); MCH 31.9 pg (25.7-33.7); MCHC 34.4 g/dl (32.0-35.9); MEAN CELL VOLUME 92.7 fl (80-96); MEAN PLT VOLUME 8.9 fl (7.5-11.1); MONO % 7.6 % (3.8-10.2); NEUT % 63.2 % (42.8-82.8); PLATELET COUNT 284 10^3/uL (134-434); RBC 2.83 M/mm3 (4.00-5.60); RDW 14.4 % (11.9-15.9); WHITE BLOOD COUNT 6.5 K/mm3 (4.0-10.0)
[2022-09-17 08:18] LABS: POTASSIUM 3.8 mmol/L (3.5-5.1)
[2022-09-17 08:20] LABS: CALCIUM 8.8 mg/dL (8.5-10.1)
[2022-09-17 08:21] LABS: ALBUMIN 2.5 g/dl (3.4-5.0); BLOOD UREA NITROGEN 16.4 mg/dL (7-18); MAGNESIUM 1.8 mg/dL (1.8-2.4)
[2022-09-17 08:24] LABS: PHOSPHOROUS 2.6 mg/dL (2.5-4.9)
[2022-09-17 08:26] LABS: BILIRUBIN,TOTAL 0.2 mg/dL (0.2-1); TOT PROT 6.4 g/dl (6.4-8.2)
[2022-09-17 09:14] VITALS: RESP 18
[2022-09-17] MEDS: METOPROLOL TARTRATE 50 MG TABLET (FP) PO SCH (10:01)
[2022-09-17] MEDS: THIAMINE HCL 100 MG TABLET (FP) PO SCH (10:01)
[2022-09-17] MEDS: DULoxetine HCL 30 MG CAPSULE.DR PO SCH (10:02)
[2022-09-17] MEDS: PANTOPRAZOLE 40 MG TABLET PO SCH (10:02)
[2022-09-17] MEDS: levETIRAcetam 500 MG/5 ML INJECTION VIAL IVPB SCH (10:02)
[2022-09-17] MEDS: FOLIC ACID 1 MG TABLET (FP) PO SCH (10:02)
[2022-09-17] MEDS: TIOTROPIUM BROMIDE 2.5 MCG (SPIRIVA) RESPIMAT INHALER IH SCH (10:03)
[2022-09-17 14:35] VITALS: BP 98/68; PULSE 80; TEMP 97.7
[2022-09-17] MEDS ORDERED: ACETAMINOPHEN 325 MG TABLET (FP) PO ONE (14:45)
== END 2022-09-17 16:00 | disposition home or self-care (01) ==
LOC: JER 10:30 → INTOOBSV 14:36 → UNDOADMOB 14:36 → JERBED 14:36 → J7W 21:29
PROVIDERS: ADMIT Internal Medicine; ATTEND Internal Medicine
PROC: 3E033GC Introduction of Other Therapeutic Substance into Peripheral Vein, Percutaneous Approach (ICD-10-PCS; principal; 2022-09-15)
DX: M25.562 Pain in left knee (principal); W18.39XA Other fall on same level, initial encounter; F10.99 Alcohol use, unspecified with unspecified alcohol-induced disorder; Y93.89 Activity, other specified; Y92.002 Bathroom of unspecified non-institutional (private) residence as the place of occurrence of the external cause; I10 Essential (primary) hypertension; J44.9 Chronic obstructive pulmonary disease, unspecified; R29.6 Repeated falls; E16.2 Hypoglycemia, unspecified; N40.0 Benign prostatic hyperplasia without lower urinary tract symptoms; M17.9 Osteoarthritis of knee, unspecified; Z88.8 Allergy status to other drugs, medicaments and biological substances
CPT/HCPCS: 36415; 70450-TC; 71045-TC-FY; 72125-TC; 72170-TC-FY; 73110-TC-RT-FY; 73130-TC-RT-FY; 73502-TC-LT-FY; 73564-TC-LT-FY; 80053; 80307; 82803; 82962; 83605; 83735; 84100; 84484; 85025; 85610; 85730; 86850; 86900; 86901; 93005; 93010; 96365; 96375; 96376; 97116-GP; 97161-GP; 99285-25; C9803-CS; G0378; U0003; U0005

== ENCOUNTER 2022-10-19 11:16 | Observation (INO) | payer OTHER ==
[2022-10-19 11:23] VITALS: BMI 25.0
[2022-10-19 12:31] LABS: BASO % 0.4 % (0-2.0); EOS % 0.1 % (0-4.5); HEMATOCRIT 31.3 % (35.4-49); HEMOGLOBIN 10.5 GM/dL (11.7-16.9); LYMPH % 15.8 % (8-40); MCH 29.5 pg (25.7-33.7); MCHC 33.5 g/dl (32.0-35.9); MEAN CELL VOLUME 88.2 fl (80-96); MEAN PLT VOLUME 9.3 fl (7.5-11.1); MONO % 10.2 % (3.8-10.2); NEUT % 73.5 % (42.8-82.8); PLATELET COUNT 128 10^3/uL (134-434); RBC 3.54 M/mm3 (4.00-5.60); RDW 17.4 % (11.9-15.9); WHITE BLOOD COUNT 8.5 K/mm3 (4.0-10.0)
[2022-10-19 12:49] LABS: CHLORIDE 100 mmol/L (98-107); SODIUM 139 mmol/L (136-145)
[2022-10-19 12:51] LABS: BLOOD UREA NITROGEN 7.4 mg/dL (7-18); CALCIUM 8.2 mg/dL (8.5-10.1); CO2 24 mmol/L (21-32); GLUCOSE,RANDOM 66 mg/dL (74-106)
[2022-10-19 12:54] LABS: CREATININE 1.3 mg/dL (0.55-1.3); SGOT/AST 32 U/L (15-37); SGPT/ALT 19 U/L (13-61)
[2022-10-19 12:56] LABS: BILIRUBIN,TOTAL 0.6 mg/dL (0.2-1); TOT PROT 7.5 g/dl (6.4-8.2)
[2022-10-19 12:57] LABS: ALK PHOS 63 U/L (45-117); ANION GAP 15 MMOL/L (8-16); POTASSIUM 2.7 mmol/L (3.5-5.1)
[2022-10-19] MEDS ORDERED: KETOROLAC TROMETHAMINE 15 MG/ML VIAL IVPUSH PRN (14:54)
[2022-10-19] MEDS ORDERED: ACETAMINOPHEN 500 MG TABLET (FP) PO PRN (14:55)
[2022-10-19] MEDS ORDERED: LORazepam 1 MG TABLET PO PRN (15:37)
[2022-10-19] MEDS ORDERED: KCL 10 MEQ IVPB 10 MEQ/100 ML INFUS.BAG IVPB ONE (16:19)
[2022-10-19] MEDS: KCL 10 MEQ IVPB 10 MEQ/100 ML INFUS.BAG IVPB SCH ×5 (16:30→22:09)
[2022-10-19] MEDS ORDERED: KCL 10 MEQ IVPB 20 MEQ/200 ML INFUS.BAG IVPB ONE ×2 (19:44→22:06)
[2022-10-19] MEDS ORDERED: POTASSIUM CHLORIDE TABS 10 MEQ TABLET.ER (FP) ONE (21:28)
[2022-10-19] MEDS ORDERED: NICOTINE 14 MG/24 HOURS TOPICAL PATCH TD ONE (21:29)
[2022-10-19] MEDS ORDERED: METOPROLOL TARTRATE 50 MG TABLET (FP) ONE (21:29)
[2022-10-19] MEDS ORDERED: levETIRAcetam 500 MG TABLET (FP) PO ONE (21:29)
[2022-10-19] MEDS ORDERED: amLODIPine BESYLATE 10 MG TABLET (FP) ONE (21:29)
[2022-10-19] MEDS: NICOTINE 14 MG/24 HOURS TOPICAL PATCH TD SCH (21:33)
[2022-10-19] MEDS: POTASSIUM CHLORIDE TABS 10 MEQ TABLET.ER (FP) PO SCH (21:33)
[2022-10-19] MEDS: levETIRAcetam 500 MG TABLET (FP) PO SCH (21:33)
[2022-10-19] MEDS: amLODIPine BESYLATE 10 MG TABLET (FP) PO SCH (21:34)
[2022-10-19] MEDS: METOPROLOL TARTRATE 50 MG TABLET (FP) PO SCH (21:34)
[2022-10-20 08:45] LABS: BASO % 0.4 % (0-2.0); EOS % 0.8 % (0-4.5); HEMATOCRIT 29.5 % (35.4-49); HEMOGLOBIN 9.9 GM/dL (11.7-16.9); LYMPH % 23.8 % (8-40); MCH 29.3 pg (25.7-33.7); MCHC 33.4 g/dl (32.0-35.9); MEAN CELL VOLUME 87.7 fl (80-96); MEAN PLT VOLUME 9.4 fl (7.5-11.1); MONO % 8.3 % (3.8-10.2); NEUT % 66.7 % (42.8-82.8); PLATELET COUNT 132 10^3/uL (134-434); RBC 3.37 M/mm3 (4.00-5.60); RDW 17.6 % (11.9-15.9); WHITE BLOOD COUNT 7.2 K/mm3 (4.0-10.0)
[2022-10-20 09:02] LABS: CALCIUM 8.2 mg/dL (8.5-10.1)
[2022-10-20 09:03] LABS: BLOOD UREA NITROGEN 12.5 mg/dL (7-18)
[2022-10-20 09:06] LABS: CREATININE 0.9 mg/dL (0.55-1.3)
[2022-10-20] MEDS ORDERED: COLCHICINE 0.6 MG TAB PO ONE ×2 (09:30→12:00)
[2022-10-20] MEDS: NICOTINE 14 MG/24 HOURS TOPICAL PATCH TD SCH (09:41)
[2022-10-20] MEDS: levETIRAcetam 500 MG TABLET (FP) PO SCH ×2 (09:41→21:20)
[2022-10-20] MEDS: ASPIRIN COATED 81 MG TABLET.EC PO SCH (09:41)
[2022-10-20] MEDS: METOPROLOL TARTRATE 50 MG TABLET (FP) PO SCH ×2 (09:41→21:20)
[2022-10-20] MEDS: FOLIC ACID 1 MG TABLET (FP) PO SCH (09:41)
[2022-10-20] MEDS: PANTOPRAZOLE 40 MG TABLET PO SCH (09:42)
[2022-10-20] MEDS: POTASSIUM CHLORIDE TABS 10 MEQ TABLET.ER (FP) PO SCH ×2 (09:42→21:23)
[2022-10-20] MEDS: THIAMINE HCL 100 MG TABLET (FP) PO SCH (09:43)
[2022-10-20 09:45] LABS: URIC ACID 9.5 mg/dL (2.6-7.2)
[2022-10-20 09:59] LABS: URINE APPEARANCE CLEAR; URINE BILIRUBIN NEGATIVE (NEGATIVE); URINE COLOR YELLOW; URINE GLUCOSE (UA) NEGATIVE (NEGATIVE); URINE KETONE NEGATIVE (NEGATIVE); URINE LEUK ESTERASE NEGATIVE (NEGATIVE); URINE NITRITE NEGATIVE (NEGATIVE); URINE PROTEIN NEGATIVE (NEGATIVE)
[2022-10-20] MEDS ORDERED: COLCHICINE 0.6 MG CAP PO ONE ×2 (11:22→12:00)
[2022-10-20 11:38] LABS: MAGNESIUM 1.2 mg/dL (1.8-2.4)
[2022-10-20] MEDS ORDERED: MAGNESIUM SULF 50% (8.12 MEQ/2 ML-1 GM VIAL) IVPB ONE (15:12)
[2022-10-20] MEDS: amLODIPine BESYLATE 10 MG TABLET (FP) PO SCH (21:20)
[2022-10-20] MEDS: NAPROXEN 500 MG TABLET PO SCH (21:23)
[2022-10-21 08:03] LABS: BASO % 0.4 % (0-2.0); EOS % 1.6 % (0-4.5); HEMATOCRIT 27.4 % (35.4-49); LYMPH % 30.2 % (8-40); MCH 29.1 pg (25.7-33.7); MCHC 32.8 g/dl (32.0-35.9); MEAN CELL VOLUME 88.7 fl (80-96); MEAN PLT VOLUME 9.1 fl (7.5-11.1); MONO % 11.2 % (3.8-10.2); NEUT % 56.6 % (42.8-82.8); PLATELET COUNT 129 10^3/uL (134-434); RBC 3.09 M/mm3 (4.00-5.60); RDW 17.5 % (11.9-15.9); WHITE BLOOD COUNT 5.2 K/mm3 (4.0-10.0)
[2022-10-21 08:23] LABS: POTASSIUM 3.1 mmol/L (3.5-5.1)
[2022-10-21 08:29] LABS: CALCIUM 8.5 mg/dL (8.5-10.1)
[2022-10-21 08:30] LABS: ALBUMIN 2.8 g/dl (3.4-5.0); MAGNESIUM 1.7 mg/dL (1.8-2.4); PHOSPHOROUS 3.6 mg/dL (2.5-4.9)
[2022-10-21 08:31] LABS: TOT PROT 6.6 g/dl (6.4-8.2)
[2022-10-21 08:32] LABS: BILIRUBIN,TOTAL 0.4 mg/dL (0.2-1)
[2022-10-21] MEDS: THIAMINE HCL 100 MG TABLET (FP) PO SCH (09:38)
[2022-10-21] MEDS: FOLIC ACID 1 MG TABLET (FP) PO SCH (09:38)
[2022-10-21] MEDS: NAPROXEN 500 MG TABLET PO SCH ×2 (09:38→21:32)
[2022-10-21] MEDS: levETIRAcetam 500 MG TABLET (FP) PO SCH ×2 (09:38→21:28)
[2022-10-21] MEDS: ASPIRIN COATED 81 MG TABLET.EC PO SCH (09:38)
[2022-10-21] MEDS: PANTOPRAZOLE 40 MG TABLET PO SCH (09:38)
[2022-10-21] MEDS: POTASSIUM CHLORIDE TABS 10 MEQ TABLET.ER (FP) PO SCH ×2 (09:38→21:27)
[2022-10-21] MEDS: METOPROLOL TARTRATE 50 MG TABLET (FP) PO SCH ×2 (09:38→21:28)
[2022-10-21] MEDS: NICOTINE 14 MG/24 HOURS TOPICAL PATCH TD SCH (09:38)
[2022-10-21] MEDS ORDERED: MAGNESIUM SULF 50% (8.12 MEQ/2 ML-1 GM VIAL) IVPB ONE (13:20)
[2022-10-21] MEDS ORDERED: ACETAMINOPHEN 500 MG TABLET (FP) PO PRN (19:40)
[2022-10-21] MEDS ORDERED: COLCHICINE 0.6 MG TAB PO ONE (19:40)
[2022-10-21] MEDS ORDERED: LORazepam 1 MG TABLET PO PRN (19:40)
[2022-10-21] MEDS ORDERED: amLODIPine BESYLATE 10 MG TABLET (FP) PO SCH (22:00)
[2022-10-22 07:56] LABS: BASO % 0.9 % (0-2.0); HEMATOCRIT 29.6 % (35.4-49); HEMOGLOBIN 9.6 GM/dL (11.7-16.9); LYMPH % 36.3 % (8-40); MCH 29.1 pg (25.7-33.7); MCHC 32.3 g/dl (32.0-35.9); MEAN CELL VOLUME 90.1 fl (80-96); MEAN PLT VOLUME 8.9 fl (7.5-11.1); MONO % 11.9 % (3.8-10.2); NEUT % 47.9 % (42.8-82.8); PLATELET COUNT 150 10^3/uL (134-434); RBC 3.29 M/mm3 (4.00-5.60); RDW 17.6 % (11.9-15.9); WHITE BLOOD COUNT 4.1 K/mm3 (4.0-10.0)
[2022-10-22 08:10] LABS: CALCIUM 9.2 mg/dL (8.5-10.1)
[2022-10-22 08:11] LABS: BLOOD UREA NITROGEN 11.5 mg/dL (7-18)
[2022-10-22 08:14] LABS: CREATININE 1.2 mg/dL (0.55-1.3)
[2022-10-22] MEDS: POTASSIUM CHLORIDE TABS 10 MEQ TABLET.ER (FP) PO SCH (09:21)
[2022-10-22] MEDS: ASPIRIN COATED 81 MG TABLET.EC PO SCH ×2 (09:22→10:04)
[2022-10-22] MEDS: METOPROLOL TARTRATE 50 MG TABLET (FP) PO SCH (09:22)
[2022-10-22] MEDS: levETIRAcetam 500 MG TABLET (FP) PO SCH (09:22)
[2022-10-22] MEDS: NAPROXEN 500 MG TABLET PO SCH (09:23)
[2022-10-22 09:29] LABS: PHOSPHOROUS 3.1 mg/dL (2.5-4.9)
[2022-10-22] MEDS ORDERED: PANTOPRAZOLE 40 MG TABLET PO SCH (10:00)
[2022-10-22] MEDS ORDERED: THIAMINE HCL 100 MG TABLET (FP) PO SCH (10:00)
[2022-10-22] MEDS ORDERED: NICOTINE 14 MG/24 HOURS TOPICAL PATCH TD SCH (10:00)
[2022-10-22] MEDS ORDERED: FOLIC ACID 1 MG TABLET (FP) PO SCH (10:00)
[2022-10-22 10:03] VITALS: TEMP 98.3
[2022-10-22 14:16] VITALS: BP 124/76; PULSE 64; RESP 18
== END 2022-10-22 16:08 | disposition home or self-care (01) ==
LOC: JER 11:16 → JERFT 11:16 → JERBED 14:53 → UNDOADMOB 22:25 → INTOOBSV 22:25 → JERBED 10-20 01:47 → J4W 10-20 01:47 → J6S 10-21 15:46
PROVIDERS: ADMIT Internal Medicine; ATTEND Internal Medicine
PROC: 3E033GC Introduction of Other Therapeutic Substance into Peripheral Vein, Percutaneous Approach (ICD-10-PCS; principal; 2022-10-19)
DX: F10.99 Alcohol use, unspecified with unspecified alcohol-induced disorder (principal); R29.6 Repeated falls; M10.9 Gout, unspecified; W18.39XA Other fall on same level, initial encounter; Y93.89 Activity, other specified; I10 Essential (primary) hypertension; Y92.89 Other specified places as the place of occurrence of the external cause; E87.6 Hypokalemia; E83.42 Hypomagnesemia; J44.9 Chronic obstructive pulmonary disease, unspecified; G47.33 Obstructive sleep apnea (adult) (pediatric); N40.0 Benign prostatic hyperplasia without lower urinary tract symptoms; I48.91 Unspecified atrial fibrillation; Z88.8 Allergy status to other drugs, medicaments and biological substances; Z29.8 Encounter for other specified prophylactic measures
CPT/HCPCS: 36415; 70450-TC; 73110-TC-RT-FY; 73130-TC-RT-FY; 73200-TC-RT; 73562-TC-LT-FY; 76937; 80048; 80053; 81003; 82962; 83735; 84100; 84550; 85025; 93005; 93010; 96365; 96375; 96376; 97116-GP; 97162-GP; 99285-25; G0378

== ENCOUNTER 2022-12-24 11:39 | Inpatient (IN) | payer OTHER ==
[2022-12-24] MEDS ORDERED: ACETAMINOPHEN 1000 MG/100 ML BAG IVPB ONE (12:43)
[2022-12-24] MEDS ORDERED: ACETAMINOPHEN INJECTION 100 ML IVPB ONE (13:00)
[2022-12-24 13:45] LABS: BASO % 0.3 % (0-2.0); EOS % 0.3 % (0-4.5); HEMATOCRIT 29.4 % (35.4-49); HEMOGLOBIN 9.5 GM/dL (11.7-16.9); LYMPH % 11.7 % (8-40); MCH 28.3 pg (25.7-33.7); MCHC 32.5 g/dl (32.0-35.9); MEAN CELL VOLUME 87.1 fl (80-96); MEAN PLT VOLUME 9.2 fl (7.5-11.1); MONO % 14.5 % (3.8-10.2); NEUT % 73.2 % (42.8-82.8); PLATELET COUNT 232 10^3/uL (134-434); RBC 3.37 M/mm3 (4.00-5.60); RDW 21.1 % (11.9-15.9)
[2022-12-24 14:16] LABS: CHLORIDE 97 mmol/L (98-107); SODIUM 141 mmol/L (136-145)
[2022-12-24 14:17] LABS: ALBUMIN 2.9 g/dl (3.4-5.0); BLOOD UREA NITROGEN 15.1 mg/dL (7-18); CALCIUM 9.2 mg/dL (8.5-10.1); CO2 26 mmol/L (21-32); GLUCOSE,RANDOM 92 mg/dL (74-106); MAGNESIUM 1.4 mg/dL (1.8-2.4)
[2022-12-24 14:21] LABS: CREATININE 1.2 mg/dL (0.55-1.3); SGOT/AST 67 U/L (15-37); SGPT/ALT 22 U/L (13-61)
[2022-12-24 14:22] LABS: BILIRUBIN,TOTAL 0.8 mg/dL (0.2-1); TOT PROT 7.6 g/dl (6.4-8.2)
[2022-12-24 14:23] LABS: ALK PHOS 72 U/L (45-117)
[2022-12-24 14:27] LABS: ANION GAP 19 MMOL/L (8-16); POTASSIUM 2.7 mmol/L (3.5-5.1)
[2022-12-24] MEDS ORDERED: POTASSIUM CHLORIDE TABS 20 MEQ TABLET.ER (FP) PO ONE ×2 (14:34→14:41)
[2022-12-24] MEDS ORDERED: MAGNESIUM SULF 50% (8.12 MEQ/2 ML-1 GM VIAL) IVPB ONE (14:36)
[2022-12-24 14:38] LABS: ANISOCYTOSIS 1+; MACROCYTOSIS 0
[2022-12-24] MEDS ORDERED: INDOMETHACIN 50 MG CAPSULE PO ONE (14:39)
[2022-12-24] MEDS ORDERED: MAGNESIUM 1GM/D5W - 1 GM/100 ML IVPB IVPB ONE (14:41)
[2022-12-24] MEDS: KCL 10 MEQ IVPB 10 MEQ/100 ML INFUS.BAG IVPB SCH ×4 (15:00→23:10)
[2022-12-24 15:19] LABS: CHLORIDE 97 mmol/L (98-107); SODIUM 141 mmol/L (136-145)
[2022-12-24 15:20] LABS: CALCIUM 8.7 mg/dL (8.5-10.1); CO2 26 mmol/L (21-32); GLUCOSE,RANDOM 111 mg/dL (74-106)
[2022-12-24 15:21] LABS: URIC ACID 13.9 mg/dL (2.6-7.2)
[2022-12-24 15:21] LABS: BLOOD UREA NITROGEN 15.6 mg/dL (7-18)
[2022-12-24 15:24] LABS: CREATININE 1.3 mg/dL (0.55-1.3)
[2022-12-24 15:47] LABS: ANION GAP 18 MMOL/L (8-16); POTASSIUM 2.3 mmol/L (3.5-5.1)
[2022-12-24] MEDS ORDERED: COLCHICINE 0.6 MG CAP PO ONE (16:42)
[2022-12-24] MEDS ORDERED: KCL 10 MEQ IVPB 30 MEQ/300 ML INFUS.BAG IVPB ONE (16:47)
[2022-12-24] MEDS ORDERED: COLCHICINE 0.6 MG TAB ONE (16:47)
[2022-12-24] MEDS: PANTOPRAZOLE 40 MG TABLET PO SCH (16:55)
[2022-12-24] MEDS ORDERED: PANTOPRAZOLE 40 MG TABLET PO ONE (17:09)
[2022-12-24] MEDS: amLODIPine BESYLATE 10 MG TABLET (FP) PO SCH (18:08)
[2022-12-24] MEDS ORDERED: amLODIPine BESYLATE 10 MG TABLET (FP) ONE (18:08)
[2022-12-24] MEDS ORDERED: NAPH,MB-DB/K PH,MBDB POWDER PACKET PO ONE (21:33)
[2022-12-24] MEDS ORDERED: POTASSIUM CHLORIDE ORAL LIQUID 20 MEQ/15 ML PO ONE (21:33)
[2022-12-24] MEDS ORDERED: COLCHICINE 0.6 MG TAB PO ONE (23:00)
[2022-12-24] MEDS: HEPARIN NA (PORCINE) 5,000 UNITS/ML 1ML VIAL SQ SCH (23:09)
[2022-12-24] MEDS: levETIRAcetam 500 MG TABLET (FP) PO SCH (23:09)
[2022-12-24] MEDS: METOPROLOL TARTRATE 50 MG TABLET (FP) PO SCH (23:09)
[2022-12-24] MEDS: MAGNESIUM OXIDE 400 MG TABLET (FP) PO SCH (23:09)
[2022-12-25] MEDS: KCL 10 MEQ IVPB 10 MEQ/100 ML INFUS.BAG IVPB SCH (00:52)
[2022-12-25 01:04] LABS: CHLORIDE 101 mmol/L (98-107); SODIUM 142 mmol/L (136-145)
[2022-12-25 01:06] LABS: ALBUMIN 2.8 g/dl (3.4-5.0); BLOOD UREA NITROGEN 18.2 mg/dL (7-18); CALCIUM 8.9 mg/dL (8.5-10.1); CO2 28 mmol/L (21-32); GLUCOSE,RANDOM 98 mg/dL (74-106); MAGNESIUM 1.9 mg/dL (1.8-2.4)
[2022-12-25 01:08] LABS: PHOSPHOROUS 2.5 mg/dL (2.5-4.9); SGOT/AST 61 U/L (15-37); SGPT/ALT 22 U/L (13-61)
[2022-12-25 01:10] LABS: BILIRUBIN,TOTAL 0.5 mg/dL (0.2-1); CREATININE 1.2 mg/dL (0.55-1.3); TOT PROT 7.4 g/dl (6.4-8.2)
[2022-12-25 01:12] LABS: ALK PHOS 67 U/L (45-117)
[2022-12-25 01:13] VITALS: BMI 27.3
[2022-12-25 01:24] LABS: ANION GAP 13 MMOL/L (8-16); POTASSIUM 2.8 mmol/L (3.5-5.1)
[2022-12-25] MEDS ORDERED: POTASSIUM CHLORIDE ORAL LIQUID 20 MEQ/15 ML PO ONE (01:38)
[2022-12-25 03:52] LABS: POTASSIUM 3.1 mmol/L (3.5-5.1)
[2022-12-25 03:54] LABS: BLOOD UREA NITROGEN 17.4 mg/dL (7-18); CALCIUM 8.4 mg/dL (8.5-10.1); MAGNESIUM 1.6 mg/dL (1.8-2.4)
[2022-12-25 03:57] LABS: CREATININE 1.2 mg/dL (0.55-1.3)
[2022-12-25] MEDS ORDERED: INSULIN (NOVOLOG) ASPART 100 UNITS/ML 10ML VIAL ONE (07:37)
[2022-12-25] MEDS: levETIRAcetam 500 MG TABLET (FP) PO SCH ×2 (09:40→22:02)
[2022-12-25] MEDS: HEPARIN NA (PORCINE) 5,000 UNITS/ML 1ML VIAL SQ SCH ×2 (09:40→22:03)
[2022-12-25] MEDS: amLODIPine BESYLATE 10 MG TABLET (FP) PO SCH (09:40)
[2022-12-25] MEDS: MAGNESIUM OXIDE 400 MG TABLET (FP) PO SCH ×2 (09:40→22:02)
[2022-12-25] MEDS: PANTOPRAZOLE 40 MG TABLET PO SCH (09:40)
[2022-12-25] MEDS: METOPROLOL TARTRATE 50 MG TABLET (FP) PO SCH ×2 (09:40→22:03)
[2022-12-25 11:08] LABS: BASO % 0.3 % (0-2.0); EOS % 1.2 % (0-4.5); HEMATOCRIT 25.7 % (35.4-49); HEMOGLOBIN 8.4 GM/dL (11.7-16.9); LYMPH % 14.8 % (8-40); MCH 28.2 pg (25.7-33.7); MCHC 32.9 g/dl (32.0-35.9); MEAN CELL VOLUME 85.7 fl (80-96); MEAN PLT VOLUME 8.7 fl (7.5-11.1); MONO % 10.1 % (3.8-10.2); NEUT % 73.6 % (42.8-82.8); PLATELET COUNT 224 10^3/uL (134-434); RBC 2.99 M/mm3 (4.00-5.60); RDW 21.2 % (11.9-15.9); WHITE BLOOD COUNT 6.5 K/mm3 (4.0-10.0)
[2022-12-25] MEDS: COLCHICINE 0.6 MG TAB PO SCH (11:42)
[2022-12-25] MEDS ORDERED: MAGNESIUM SULF 50% (8.12 MEQ/2 ML-1 GM VIAL) IVPB ONE (16:52)
[2022-12-25] MEDS: POTASSIUM CHLORIDE TABS 20 MEQ TABLET.ER (FP) PO SCH (17:19)
[2022-12-25] MEDS: LIDOCAINE 5% TOPICAL PATCH TP SCH (17:20)
[2022-12-25] MEDS: NAPROXEN 500 MG TABLET PO SCH (21:58)
[2022-12-25] MEDS: LIDOCAINE PATCH REMOVAL MC SCH (22:03)
[2022-12-26 08:53] LABS: BASO % 0.6 % (0-2.0); HEMOGLOBIN 8.9 GM/dL (11.7-16.9); LYMPH % 22.2 % (8-40); MCH 28.7 pg (25.7-33.7); MCHC 33.2 g/dl (32.0-35.9); MEAN CELL VOLUME 86.6 fl (80-96); MEAN PLT VOLUME 8.6 fl (7.5-11.1); MONO % 10.3 % (3.8-10.2); NEUT % 64.9 % (42.8-82.8); PLATELET COUNT 322 10^3/uL (134-434); RBC 3.12 M/mm3 (4.00-5.60); RDW 21.2 % (11.9-15.9)
[2022-12-26 09:12] LABS: POTASSIUM 3.8 mmol/L (3.5-5.1)
[2022-12-26 09:15] LABS: CALCIUM 9.2 mg/dL (8.5-10.1)
[2022-12-26 09:16] LABS: ALBUMIN 2.6 g/dl (3.4-5.0)
[2022-12-26 09:19] LABS: CREATININE 1.3 mg/dL (0.55-1.3); MAGNESIUM 1.8 mg/dL (1.8-2.4)
[2022-12-26] MEDS: POTASSIUM CHLORIDE TABS 20 MEQ TABLET.ER (FP) PO SCH (09:20)
[2022-12-26 09:21] LABS: BILIRUBIN,TOTAL 0.4 mg/dL (0.2-1); TOT PROT 6.9 g/dl (6.4-8.2)
[2022-12-26] MEDS: LIDOCAINE 5% TOPICAL PATCH TP SCH (09:21)
[2022-12-26] MEDS: COLCHICINE 0.6 MG TAB PO SCH (09:21)
[2022-12-26] MEDS: HEPARIN NA (PORCINE) 5,000 UNITS/ML 1ML VIAL SQ SCH ×2 (09:21→22:05)
[2022-12-26] MEDS: MAGNESIUM OXIDE 400 MG TABLET (FP) PO SCH ×2 (09:21→22:05)
[2022-12-26] MEDS: THIAMINE HCL 100 MG TABLET (FP) PO SCH (09:22)
[2022-12-26] MEDS: METOPROLOL TARTRATE 50 MG TABLET (FP) PO SCH ×2 (09:22→22:05)
[2022-12-26] MEDS: levETIRAcetam 500 MG TABLET (FP) PO SCH ×2 (09:22→22:05)
[2022-12-26] MEDS: FOLIC ACID 1 MG TABLET (FP) PO SCH (09:22)
[2022-12-26] MEDS: PANTOPRAZOLE 40 MG TABLET PO SCH (09:22)
[2022-12-26] MEDS: NAPROXEN 500 MG TABLET PO SCH ×2 (09:22→22:05)
[2022-12-26] MEDS: amLODIPine BESYLATE 10 MG TABLET (FP) PO SCH (09:22)
[2022-12-26 09:23] LABS: PHOSPHOROUS 1.6 mg/dL (2.5-4.9)
[2022-12-26] MEDS: NAPH,MB-DB/K PH,MBDB POWDER PACKET PO SCH (20:10)
[2022-12-26] MEDS: LIDOCAINE PATCH REMOVAL MC SCH (22:05)
[2022-12-27] MEDS: FOLIC ACID 1 MG TABLET (FP) PO SCH (10:23)
[2022-12-27] MEDS: NAPROXEN 500 MG TABLET PO SCH ×2 (10:23→21:17)
[2022-12-27] MEDS: levETIRAcetam 500 MG TABLET (FP) PO SCH ×2 (10:23→21:17)
[2022-12-27] MEDS: COLCHICINE 0.6 MG TAB PO SCH (10:23)
[2022-12-27] MEDS: NAPH,MB-DB/K PH,MBDB POWDER PACKET PO SCH (10:23)
[2022-12-27] MEDS: MAGNESIUM OXIDE 400 MG TABLET (FP) PO SCH ×2 (10:23→21:17)
[2022-12-27] MEDS: PANTOPRAZOLE 40 MG TABLET PO SCH (10:23)
[2022-12-27 10:24] LABS: BASO % 0.8 % (0-2.0); HEMATOCRIT 26.5 % (35.4-49); HEMOGLOBIN 8.5 GM/dL (11.7-16.9); MCH 28.3 pg (25.7-33.7); MCHC 32.3 g/dl (32.0-35.9); MEAN CELL VOLUME 87.7 fl (80-96); MEAN PLT VOLUME 8.4 fl (7.5-11.1); MONO % 11.6 % (3.8-10.2); NEUT % 60.6 % (42.8-82.8); PLATELET COUNT 310 10^3/uL (134-434); RBC 3.02 M/mm3 (4.00-5.60); RDW 22.6 % (11.9-15.9); WHITE BLOOD COUNT 4.6 K/mm3 (4.0-10.0)
[2022-12-27] MEDS: LIDOCAINE 5% TOPICAL PATCH TP SCH (10:24)
[2022-12-27] MEDS: HEPARIN NA (PORCINE) 5,000 UNITS/ML 1ML VIAL SQ SCH ×2 (10:24→21:18)
[2022-12-27 10:54] LABS: POTASSIUM 4.2 mmol/L (3.5-5.1)
[2022-12-27 10:56] LABS: CALCIUM 9.2 mg/dL (8.5-10.1)
[2022-12-27 10:57] LABS: ALBUMIN 2.4 g/dl (3.4-5.0); BLOOD UREA NITROGEN 16.4 mg/dL (7-18); MAGNESIUM 1.6 mg/dL (1.8-2.4)
[2022-12-27 11:00] LABS: CREATININE 1.2 mg/dL (0.55-1.3)
[2022-12-27] MEDS: METOPROLOL TARTRATE 50 MG TABLET (FP) PO SCH ×2 (11:00→21:19)
[2022-12-27] MEDS: amLODIPine BESYLATE 10 MG TABLET (FP) PO SCH (11:00)
[2022-12-27 11:01] LABS: BILIRUBIN,TOTAL 0.3 mg/dL (0.2-1)
[2022-12-27] MEDS: THIAMINE HCL 100 MG TABLET (FP) PO SCH (11:01)
[2022-12-27 11:06] LABS: PHOSPHOROUS 1.4 mg/dL (2.5-4.9)
[2022-12-27] MEDS ORDERED: NAPH,MB-DB/K PH,MBDB POWDER PACKET PO ONE (16:15)
[2022-12-27] MEDS ORDERED: levETIRAcetam 250 MG TABLET PO SCH (17:04)
[2022-12-27] MEDS: LIDOCAINE PATCH REMOVAL MC SCH (21:18)
[2022-12-28] MEDS: INDOMETHACIN 50 MG CAPSULE PO SCH ×4 (06:27→22:31)
[2022-12-28] MEDS ORDERED: METOPROLOL TARTRATE 50 MG TABLET (FP) PO SCH (10:00)
[2022-12-28] MEDS: MAGNESIUM OXIDE 400 MG TABLET (FP) PO SCH ×2 (10:13→22:30)
[2022-12-28] MEDS: amLODIPine BESYLATE 10 MG TABLET (FP) PO SCH (10:13)
[2022-12-28] MEDS: FOLIC ACID 1 MG TABLET (FP) PO SCH (10:13)
[2022-12-28] MEDS: COLCHICINE 0.6 MG TAB PO SCH (10:13)
[2022-12-28] MEDS: NAPH,MB-DB/K PH,MBDB POWDER PACKET PO SCH (10:13)
[2022-12-28] MEDS: ASPIRIN COATED 81 MG TABLET.EC PO SCH (10:13)
[2022-12-28] MEDS: METOPROLOL TARTRATE 50 MG TABLET (FP) PO SCH ×2 (10:13→22:33)
[2022-12-28] MEDS: THIAMINE HCL 100 MG TABLET (FP) PO SCH (10:13)
[2022-12-28] MEDS: PANTOPRAZOLE 40 MG TABLET PO SCH (10:14)
[2022-12-28] MEDS: LIDOCAINE 5% TOPICAL PATCH TP SCH (10:14)
[2022-12-28] MEDS: levETIRAcetam 500 MG TABLET (FP) PO SCH ×2 (10:14→22:29)
[2022-12-28] MEDS: HEPARIN NA (PORCINE) 5,000 UNITS/ML 1ML VIAL SQ SCH ×2 (10:14→22:28)
[2022-12-28 11:09] LABS: HEMATOCRIT 26.2 % (35.4-49); HEMOGLOBIN 8.6 GM/dL (11.7-16.9); MCH 28.3 pg (25.7-33.7); MCHC 32.7 g/dl (32.0-35.9); MEAN CELL VOLUME 86.6 fl (80-96); MEAN PLT VOLUME 8.4 fl (7.5-11.1); PLATELET COUNT 354 10^3/uL (134-434); RBC 3.03 M/mm3 (4.00-5.60); WHITE BLOOD COUNT 4.1 K/mm3 (4.0-10.0)
[2022-12-28 11:41] LABS: POTASSIUM 4.2 mmol/L (3.5-5.1)
[2022-12-28 11:49] LABS: CALCIUM 9.5 mg/dL (8.5-10.1)
[2022-12-28 11:50] LABS: ALBUMIN 2.4 g/dl (3.4-5.0); BLOOD UREA NITROGEN 13.1 mg/dL (7-18); MAGNESIUM 1.4 mg/dL (1.8-2.4)
[2022-12-28 11:53] LABS: CREATININE 1.2 mg/dL (0.55-1.3)
[2022-12-28 11:55] LABS: BILIRUBIN,TOTAL 0.4 mg/dL (0.2-1); TOT PROT 6.2 g/dl (6.4-8.2)
[2022-12-28 12:05] LABS: ANISOCYTOSIS 1+; MACROCYTOSIS 1+
[2022-12-28] MEDS: MAGNESIUM SULF 50% (8.12 MEQ/2 ML-1 GM VIAL) IVPB ONE ×2 (13:11→13:49)
[2022-12-28] MEDS: LIDOCAINE PATCH REMOVAL MC SCH (22:30)
[2022-12-28] MEDS: DOXYCYCLINE HYCLATE 100 MG CAPSULE PO SCH (23:55)
[2022-12-29] MEDS: FOLIC ACID 1 MG TABLET (FP) PO SCH (09:49)
[2022-12-29] MEDS: THIAMINE HCL 100 MG TABLET (FP) PO SCH (09:49)
[2022-12-29] MEDS: DOXYCYCLINE HYCLATE 100 MG CAPSULE PO SCH ×2 (09:49→18:12)
[2022-12-29] MEDS: levETIRAcetam 500 MG TABLET (FP) PO SCH (09:49)
[2022-12-29] MEDS: MAGNESIUM OXIDE 400 MG TABLET (FP) PO SCH ×2 (09:49→21:41)
[2022-12-29] MEDS: NAPH,MB-DB/K PH,MBDB POWDER PACKET PO SCH (09:49)
[2022-12-29] MEDS: METOPROLOL TARTRATE 50 MG TABLET (FP) PO SCH ×2 (09:49→21:43)
[2022-12-29] MEDS: PANTOPRAZOLE 40 MG TABLET PO SCH (09:49)
[2022-12-29] MEDS: ASPIRIN COATED 81 MG TABLET.EC PO SCH (09:49)
[2022-12-29] MEDS: LIDOCAINE 5% TOPICAL PATCH TP SCH (09:49)
[2022-12-29] MEDS: amLODIPine BESYLATE 10 MG TABLET (FP) PO SCH (09:49)
[2022-12-29] MEDS: COLCHICINE 0.6 MG TAB PO SCH (09:49)
[2022-12-29 09:50] LABS: BASO % 0.9 % (0-2.0); EOS % 1.9 % (0-4.5); HEMATOCRIT 26.9 % (35.4-49); HEMOGLOBIN 8.8 GM/dL (11.7-16.9); LYMPH % 22.3 % (8-40); MCH 28.4 pg (25.7-33.7); MCHC 32.5 g/dl (32.0-35.9); MEAN CELL VOLUME 87.2 fl (80-96); MEAN PLT VOLUME 8.4 fl (7.5-11.1); MONO % 10.5 % (3.8-10.2); NEUT % 64.4 % (42.8-82.8); PLATELET COUNT 391 10^3/uL (134-434); RBC 3.09 M/mm3 (4.00-5.60); RDW 22.1 % (11.9-15.9); WHITE BLOOD COUNT 4.3 K/mm3 (4.0-10.0)
[2022-12-29] MEDS: INDOMETHACIN 50 MG CAPSULE PO SCH ×4 (09:50→21:58)
[2022-12-29] MEDS: HEPARIN NA (PORCINE) 5,000 UNITS/ML 1ML VIAL SQ SCH ×2 (09:50→21:40)
[2022-12-29 10:06] LABS: POTASSIUM 5.5 mmol/L (3.5-5.1)
[2022-12-29 10:11] LABS: ALBUMIN 2.3 g/dl (3.4-5.0); CALCIUM 9.1 mg/dL (8.5-10.1)
[2022-12-29 10:12] LABS: MAGNESIUM 1.7 mg/dL (1.8-2.4)
[2022-12-29 10:13] LABS: PHOSPHOROUS 2.4 mg/dL (2.5-4.9)
[2022-12-29 10:15] LABS: TOT PROT 6.2 g/dl (6.4-8.2)
[2022-12-29 10:17] LABS: CREATININE 1.1 mg/dL (0.55-1.3)
[2022-12-29 10:18] LABS: BILIRUBIN,TOTAL 0.4 mg/dL (0.2-1)
[2022-12-29 14:08] VITALS: RESP 18
[2022-12-29] MEDS ORDERED: MAGNESIUM SULF 50% (8.12 MEQ/2 ML-1 GM VIAL) IVPB ONE ×2 (15:06→15:11)
[2022-12-29] MEDS ORDERED: NAPH,MB-DB/K PH,MBDB POWDER PACKET PO ONE (15:12)
[2022-12-29 17:17] LABS: POTASSIUM 4.3 mmol/L (3.5-5.1)
[2022-12-29 17:18] LABS: ALBUMIN 2.4 g/dl (3.4-5.0); CALCIUM 9.2 mg/dL (8.5-10.1)
[2022-12-29 17:19] LABS: BLOOD UREA NITROGEN 13.5 mg/dL (7-18)
[2022-12-29 17:21] LABS: CREATININE 1.1 mg/dL (0.55-1.3)
[2022-12-29 17:24] LABS: BILIRUBIN,TOTAL 0.3 mg/dL (0.2-1); TOT PROT 6.2 g/dl (6.4-8.2)
[2022-12-29 19:34] LABS: MAGNESIUM 1.6 mg/dL (1.8-2.4)
[2022-12-29 19:37] LABS: PHOSPHOROUS 2.5 mg/dL (2.5-4.9)
[2022-12-29] MEDS: LIDOCAINE PATCH REMOVAL MC SCH (21:56)
[2022-12-29] MEDS ORDERED: levETIRAcetam 500 MG TABLET (FP) PO SCH (22:00)
[2022-12-30] MEDS ORDERED: MAGNESIUM 2GM/50ML STERILE WATER IVPB IVPB ONE (03:45)
[2022-12-30] MEDS: HEPARIN NA (PORCINE) 5,000 UNITS/ML 1ML VIAL SQ SCH ×2 (09:10→22:23)
[2022-12-30] MEDS: MAGNESIUM OXIDE 400 MG TABLET (FP) PO SCH ×2 (09:10→22:29)
[2022-12-30] MEDS: ASPIRIN COATED 81 MG TABLET.EC PO SCH (09:10)
[2022-12-30] MEDS: METOPROLOL TARTRATE 50 MG TABLET (FP) PO SCH ×2 (09:10→22:29)
[2022-12-30] MEDS: LIDOCAINE 5% TOPICAL PATCH TP SCH (09:10)
[2022-12-30] MEDS: COLCHICINE 0.6 MG TAB PO SCH (09:11)
[2022-12-30] MEDS: THIAMINE HCL 100 MG TABLET (FP) PO SCH (09:11)
[2022-12-30] MEDS: amLODIPine BESYLATE 10 MG TABLET (FP) PO SCH (09:11)
[2022-12-30] MEDS: PANTOPRAZOLE 40 MG TABLET PO SCH (09:11)
[2022-12-30] MEDS: NAPH,MB-DB/K PH,MBDB POWDER PACKET PO SCH (09:11)
[2022-12-30] MEDS: DOXYCYCLINE HYCLATE 100 MG CAPSULE PO SCH ×2 (09:11→17:01)
[2022-12-30] MEDS: FOLIC ACID 1 MG TABLET (FP) PO SCH (09:11)
[2022-12-30 09:48] LABS: HEMATOCRIT 27.4 % (35.4-49); MCH 28.5 pg (25.7-33.7); MCHC 32.8 g/dl (32.0-35.9); MEAN CELL VOLUME 87.1 fl (80-96); MEAN PLT VOLUME 8.6 fl (7.5-11.1); PLATELET COUNT 461 10^3/uL (134-434); RBC 3.15 M/mm3 (4.00-5.60); RDW 22.5 % (11.9-15.9); WHITE BLOOD COUNT 5.9 K/mm3 (4.0-10.0)
[2022-12-30 10:31] LABS: POTASSIUM 4.8 mmol/L (3.5-5.1)
[2022-12-30 10:32] LABS: CALCIUM 9.3 mg/dL (8.5-10.1)
[2022-12-30 10:33] LABS: BLOOD UREA NITROGEN 12.6 mg/dL (7-18); MAGNESIUM 2.3 mg/dL (1.8-2.4)
[2022-12-30 10:36] LABS: CREATININE 1.2 mg/dL (0.55-1.3); PHOSPHOROUS 1.8 mg/dL (2.5-4.9)
[2022-12-30] MEDS ORDERED: NAPH,MB-DB/K PH,MBDB POWDER PACKET PO ONE (12:57)
[2022-12-30] MEDS: LIDOCAINE PATCH REMOVAL MC SCH (22:28)
[2022-12-31] MEDS: ASPIRIN COATED 81 MG TABLET.EC PO SCH (10:24)
[2022-12-31] MEDS: MAGNESIUM OXIDE 400 MG TABLET (FP) PO SCH (10:24)
[2022-12-31] MEDS: amLODIPine BESYLATE 10 MG TABLET (FP) PO SCH (10:24)
[2022-12-31] MEDS: FOLIC ACID 1 MG TABLET (FP) PO SCH (10:24)
[2022-12-31] MEDS: DOXYCYCLINE HYCLATE 100 MG CAPSULE PO SCH (10:24)
[2022-12-31] MEDS: NAPH,MB-DB/K PH,MBDB POWDER PACKET PO SCH (10:24)
[2022-12-31] MEDS: THIAMINE HCL 100 MG TABLET (FP) PO SCH (10:24)
[2022-12-31] MEDS: COLCHICINE 0.6 MG TAB PO SCH (10:24)
[2022-12-31] MEDS: METOPROLOL TARTRATE 50 MG TABLET (FP) PO SCH (10:24)
[2022-12-31] MEDS: PANTOPRAZOLE 40 MG TABLET PO SCH (10:25)
[2022-12-31] MEDS: LIDOCAINE 5% TOPICAL PATCH TP SCH (10:25)
[2022-12-31] MEDS: HEPARIN NA (PORCINE) 5,000 UNITS/ML 1ML VIAL SQ SCH (10:25)
[2022-12-31 14:08] VITALS: BP 98/62; PULSE 69; TEMP 98.3
== END 2022-12-31 15:13 | DRG 351 ==
LOC: JER 11:39 → JERBED 14:33 → J6S 21:27
PROVIDERS: ADMIT Internal Medicine; ATTEND Internal Medicine
DX: M10.9 Gout, unspecified (principal); J44.9 Chronic obstructive pulmonary disease, unspecified; N40.0 Benign prostatic hyperplasia without lower urinary tract symptoms; G47.33 Obstructive sleep apnea (adult) (pediatric); F10.10 Alcohol abuse, uncomplicated; M17.12 Unilateral primary osteoarthritis, left knee; I10 Essential (primary) hypertension; E87.6 Hypokalemia; M25.571 Pain in right ankle and joints of right foot; E83.42 Hypomagnesemia; M54.9 Dorsalgia, unspecified; D64.9 Anemia, unspecified; N20.0 Calculus of kidney; M25.471 Effusion, right ankle
CPT/HCPCS: 36415; 73610-TC-RT-FY; 73630-TC-RT-FY; 80048; 80053; 82607; 82728; 82746; 83540; 83550; 83735; 84100; 84550; 85025; 85027; 93005; 93010; 93971-TC; 97116-GP; 99285-25; J1644

== ENCOUNTER 2023-05-20 01:04 | Inpatient (IN) | payer OTHER ==
[2023-05-20] MEDS ORDERED: KETOROLAC TROMETHAMINE 30 MG/1 ML VIAL IVPUSH ONE (02:30)
[2023-05-20] MEDS ORDERED: KETOROLAC TROMETHAMINE 15 MG/ML VIAL ONE (03:34)
[2023-05-20 03:50] LABS: BASO % 0.6 % (0-2.0); EOS % 0.2 % (0-4.5); HEMATOCRIT 33.4 % (35.4-49); HEMOGLOBIN 10.9 GM/dL (11.7-16.9); LYMPH % 14.9 % (8-40); MCH 26.2 pg (25.7-33.7); MCHC 32.6 g/dl (32.0-35.9); MEAN CELL VOLUME 80.5 fl (80-96); MEAN PLT VOLUME 8.3 fl (7.5-11.1); MONO % 16.3 % (3.8-10.2); PLATELET COUNT 279 10^3/uL (134-434); RBC 4.15 M/mm3 (4.00-5.60); RDW 24.7 % (11.9-15.9); WHITE BLOOD COUNT 6.8 K/mm3 (4.0-10.0)
[2023-05-20 03:58] LABS: INR 1.07 (0.83-1.09); PROTHROMBIN TIME (PATIENT) 12.4 SEC (9.7-13.0)
[2023-05-20 04:01] LABS: ACTIVATED PTT 25.8 SECONDS (25.2-36.5)
[2023-05-20 04:07] LABS: POTASSIUM 3.5 mmol/L (3.5-5.1)
[2023-05-20 04:10] LABS: BLOOD UREA NITROGEN 10.7 mg/dL (7-18); CALCIUM 8.9 mg/dL (8.5-10.1)
[2023-05-20 04:11] LABS: ALBUMIN 3.5 g/dl (3.4-5.0)
[2023-05-20 04:14] LABS: CREATININE 1.2 mg/dL (0.55-1.3)
[2023-05-20 04:15] LABS: BILIRUBIN,TOTAL 1.3 mg/dL (0.2-1)
[2023-05-20] MEDS ORDERED: ACETAMINOPHEN 1000 MG/100 ML BAG IVPB ONE (04:53)
[2023-05-20] MEDS ORDERED: ACETAMINOPHEN INJECTION 100 ML IVPB ONE (04:56)
[2023-05-20] MEDS ORDERED: COLCHICINE 0.6 MG CAP PO ONE (05:34)
[2023-05-20] MEDS ORDERED: COLCHICINE 0.6 MG TAB PO ONE ×2 (06:00→08:00)
[2023-05-20] MEDS ORDERED: COLCHICINE 0.6 MG TAB ONE ×2 (06:10→07:33)
[2023-05-20 07:44] LABS: ANISOCYTOSIS 3+; MACROCYTOSIS 0
[2023-05-20] MEDS ORDERED: LIDOCAINE HCL 1%, 10 MG/ML (50 mL VIAL) SQ ONE (08:47)
[2023-05-20] MEDS ORDERED: LIDOCAINE HCL 2% (20ML MULTI-DOSE VIAL) ONE (08:52)
[2023-05-20 10:20] LABS: URIC ACID 9.5 mg/dL (2.6-7.2)
[2023-05-20 11:04] LABS: BF WBC & OTHER NUCLEATED CELLS 33882 /mm3
[2023-05-20 12:11] LABS: BODY FLUID MONOCYTE 2 %
[2023-05-20 12:12] LABS: CRYSTALS,SYNOVIAL FLUID NEG
[2023-05-20 12:24] VITALS: BMI 23.0
[2023-05-20] MEDS: MAGNESIUM OXIDE 400 MG TABLET (FP) PO SCH (21:35)
[2023-05-20] MEDS: levETIRAcetam 500 MG TABLET (FP) PO SCH (21:35)
[2023-05-20] MEDS: METOPROLOL TARTRATE 50 MG TABLET (FP) PO SCH (21:35)
[2023-05-21 09:16] LABS: BASO % 0.5 % (0-2.0); EOS % 0.3 % (0-4.5); HEMATOCRIT 30.6 % (35.4-49); HEMOGLOBIN 9.9 GM/dL (11.7-16.9); LYMPH % 15.2 % (8-40); MCH 26.5 pg (25.7-33.7); MCHC 32.5 g/dl (32.0-35.9); MEAN CELL VOLUME 81.4 fl (80-96); MEAN PLT VOLUME 8.3 fl (7.5-11.1); MONO % 13.4 % (3.8-10.2); NEUT % 70.6 % (42.8-82.8); PLATELET COUNT 251 10^3/uL (134-434); RBC 3.75 M/mm3 (4.00-5.60); RDW 24.3 % (11.9-15.9); WHITE BLOOD COUNT 6.8 K/mm3 (4.0-10.0)
[2023-05-21] MEDS: amLODIPine BESYLATE 10 MG TABLET (FP) PO SCH (09:20)
[2023-05-21] MEDS: COLCHICINE 0.6 MG TAB PO SCH ×2 (09:21→21:32)
[2023-05-21] MEDS: levETIRAcetam 500 MG TABLET (FP) PO SCH ×2 (09:21→21:32)
[2023-05-21] MEDS: ASPIRIN COATED 81 MG TABLET.EC PO SCH (09:21)
[2023-05-21] MEDS: METOPROLOL TARTRATE 50 MG TABLET (FP) PO SCH ×2 (09:22→21:32)
[2023-05-21] MEDS: FOLIC ACID 1 MG TABLET (FP) PO SCH (09:22)
[2023-05-21] MEDS: NAPH,MB-DB/K PH,MBDB POWDER PACKET PO SCH ×3 (09:22→21:32)
[2023-05-21] MEDS: MAGNESIUM OXIDE 400 MG TABLET (FP) PO SCH ×2 (09:22→21:32)
[2023-05-21] MEDS: THIAMINE HCL 100 MG TABLET (FP) PO SCH (09:22)
[2023-05-21] MEDS: ENOXAPARIN NA (PORCINE) 40 MG/0.4 ML DISP.SYRIN SQ SCH (09:22)
[2023-05-21 09:31] LABS: CHLORIDE 102 mmol/L (98-107); SODIUM 139 mmol/L (136-145)
[2023-05-21 09:47] LABS: CALCIUM 8.7 mg/dL (8.5-10.1)
[2023-05-21 09:48] LABS: BLOOD UREA NITROGEN 8.7 mg/dL (7-18); GLUCOSE,RANDOM 128 mg/dL (74-106); MAGNESIUM 1.8 mg/dL (1.8-2.4)
[2023-05-21 09:51] LABS: CO2 26 mmol/L (21-32); CREATININE 1.2 mg/dL (0.55-1.3); PHOSPHOROUS 2.2 mg/dL (2.5-4.9); SGOT/AST 36 U/L (15-37); SGPT/ALT 29 U/L (13-61)
[2023-05-21 09:52] LABS: TOT PROT 6.8 g/dl (6.4-8.2)
[2023-05-21 09:53] LABS: BILIRUBIN,TOTAL 0.9 mg/dL (0.2-1)
[2023-05-21 09:54] LABS: ALK PHOS 54 U/L (45-117)
[2023-05-21 10:17] LABS: ALBUMIN 2.7 g/dl (3.4-5.0); ANION GAP 11 mmol/L (4-13); POTASSIUM 2.4 mmol/L (3.5-5.1)
[2023-05-21] MEDS ORDERED: POTASSIUM CHLORIDE ORAL LIQUID 20 MEQ/15 ML PO ONE (10:30)
[2023-05-21] MEDS ORDERED: ACETAMINOPHEN 325 MG TABLET (FP) PO PRN (10:57)
[2023-05-21] MEDS ORDERED: CEFTRIAXONE 1,000 GM in DEXTROSE 5%-WATER - 50 ML IVPB SCH (12:00)
[2023-05-21] MEDS ORDERED: VANCOMYCIN/WATER FOR INJ (PEG) 1,000 MG/200 ML BAG IVPB ONE (13:00)
[2023-05-21] MEDS ORDERED: CEFTRIAXONE 1 GM in DEXTROSE 5%-WATER - 50 ML IVPB SCH ×2 (13:16→13:30)
[2023-05-22] MEDS: VANCOMYCIN/WATER FOR INJ (PEG) 1,000 MG/200 ML BAG IVPB SCH ×2 (01:20→14:52)
[2023-05-22 09:24] LABS: BASO % 0.6 % (0-2.0); HEMATOCRIT 32.3 % (35.4-49); HEMOGLOBIN 10.3 GM/dL (11.7-16.9); LYMPH % 21.2 % (8-40); MCH 26.4 pg (25.7-33.7); MCHC 31.9 g/dl (32.0-35.9); MEAN CELL VOLUME 82.9 fl (80-96); MEAN PLT VOLUME 8.6 fl (7.5-11.1); MONO % 8.7 % (3.8-10.2); NEUT % 68.5 % (42.8-82.8); PLATELET COUNT 264 10^3/uL (134-434); RBC 3.89 M/mm3 (4.00-5.60); RDW 24.1 % (11.9-15.9); WHITE BLOOD COUNT 7.1 K/mm3 (4.0-10.0)
[2023-05-22 09:39] LABS: CHLORIDE 106 mmol/L (98-107); SODIUM 143 mmol/L (136-145)
[2023-05-22 09:48] LABS: CALCIUM 8.7 mg/dL (8.5-10.1); CO2 25 mmol/L (21-32); GLUCOSE,RANDOM 105 mg/dL (74-106); MAGNESIUM 1.7 mg/dL (1.8-2.4)
[2023-05-22 09:52] LABS: PHOSPHOROUS 3.4 mg/dL (2.5-4.9)
[2023-05-22 09:55] LABS: ANION GAP 12 mmol/L (4-13); POTASSIUM 2.7 mmol/L (3.5-5.1)
[2023-05-22] MEDS ORDERED: MAGNESIUM 2GM/50ML STERILE WATER IVPB IVPB ONE (09:57)
[2023-05-22] MEDS ORDERED: POTASSIUM CHLORIDE ORAL LIQUID 20 MEQ/15 ML PO ONE (09:59)
[2023-05-22] MEDS ORDERED: POTASSIUM CHLORIDE TABS 10 MEQ TABLET.ER (FP) PO ONE ×2 (09:59→14:00)
[2023-05-22] MEDS: ASPIRIN COATED 81 MG TABLET.EC PO SCH (10:43)
[2023-05-22] MEDS: amLODIPine BESYLATE 10 MG TABLET (FP) PO SCH (10:43)
[2023-05-22] MEDS: ENOXAPARIN NA (PORCINE) 40 MG/0.4 ML DISP.SYRIN SQ SCH (10:43)
[2023-05-22] MEDS: METOPROLOL TARTRATE 50 MG TABLET (FP) PO SCH ×2 (10:43→21:29)
[2023-05-22] MEDS: MAGNESIUM OXIDE 400 MG TABLET (FP) PO SCH ×2 (10:43→21:29)
[2023-05-22] MEDS: FOLIC ACID 1 MG TABLET (FP) PO SCH (10:45)
[2023-05-22] MEDS: levETIRAcetam 500 MG TABLET (FP) PO SCH ×2 (10:45→21:28)
[2023-05-22] MEDS: NAPH,MB-DB/K PH,MBDB POWDER PACKET PO SCH ×3 (10:45→21:28)
[2023-05-22] MEDS: COLCHICINE 0.6 MG TAB PO SCH ×2 (10:45→21:29)
[2023-05-22] MEDS: THIAMINE HCL 100 MG TABLET (FP) PO SCH (10:46)
[2023-05-22] MEDS: CEFTRIAXONE 2 GM in DEXTROSE 5%-WATER 100 ML IVPB SCH (12:18)
[2023-05-22 17:39] LABS: CALCIUM 7.9 mg/dL (8.5-10.1)
[2023-05-22 17:40] LABS: BLOOD UREA NITROGEN 8.2 mg/dL (7-18); MAGNESIUM 2.6 mg/dL (1.8-2.4)
[2023-05-22 17:43] LABS: CREATININE 0.9 mg/dL (0.55-1.3)
[2023-05-22] MEDS: POTASSIUM CHLORIDE ORAL LIQUID 20 MEQ/15 ML PO SCH (18:36)
[2023-05-23] MEDS: POTASSIUM CHLORIDE ORAL LIQUID 20 MEQ/15 ML PO SCH (00:35)
[2023-05-23] MEDS: VANCOMYCIN/WATER FOR INJ (PEG) 1,000 MG/200 ML BAG IVPB SCH ×2 (03:16→15:16)
[2023-05-23 08:38] LABS: BASO % 0.6 % (0-2.0); EOS % 2.6 % (0-4.5); HEMATOCRIT 29.7 % (35.4-49); HEMOGLOBIN 9.8 GM/dL (11.7-16.9); LYMPH % 18.7 % (8-40); MCH 27.4 pg (25.7-33.7); MEAN CELL VOLUME 83.1 fl (80-96); MEAN PLT VOLUME 8.3 fl (7.5-11.1); MONO % 12.4 % (3.8-10.2); NEUT % 65.7 % (42.8-82.8); PLATELET COUNT 272 10^3/uL (134-434); RBC 3.57 M/mm3 (4.00-5.60); RDW 24.6 % (11.9-15.9); WHITE BLOOD COUNT 6.5 K/mm3 (4.0-10.0)
[2023-05-23 09:19] LABS: ALBUMIN 2.6 g/dl (3.4-5.0); BLOOD UREA NITROGEN 5.1 mg/dL (7-18); CALCIUM 8.7 mg/dL (8.5-10.1); MAGNESIUM 2.1 mg/dL (1.8-2.4)
[2023-05-23 09:22] LABS: CREATININE 0.9 mg/dL (0.55-1.3); PHOSPHOROUS 2.9 mg/dL (2.5-4.9)
[2023-05-23 09:24] LABS: BILIRUBIN,TOTAL 0.5 mg/dL (0.2-1); TOT PROT 6.6 g/dl (6.4-8.2)
[2023-05-23] MEDS: NAPH,MB-DB/K PH,MBDB POWDER PACKET PO SCH ×2 (10:02→22:14)
[2023-05-23] MEDS: levETIRAcetam 500 MG TABLET (FP) PO SCH ×2 (10:02→22:12)
[2023-05-23] MEDS: amLODIPine BESYLATE 10 MG TABLET (FP) PO SCH (10:02)
[2023-05-23] MEDS: FOLIC ACID 1 MG TABLET (FP) PO SCH (10:03)
[2023-05-23] MEDS: METOPROLOL TARTRATE 50 MG TABLET (FP) PO SCH ×2 (10:03→22:13)
[2023-05-23] MEDS: ASPIRIN COATED 81 MG TABLET.EC PO SCH (10:03)
[2023-05-23] MEDS: MAGNESIUM OXIDE 400 MG TABLET (FP) PO SCH ×2 (10:03→22:14)
[2023-05-23] MEDS: THIAMINE HCL 100 MG TABLET (FP) PO SCH (10:03)
[2023-05-23] MEDS: COLCHICINE 0.6 MG TAB PO SCH ×2 (10:03→22:13)
[2023-05-23] MEDS: ENOXAPARIN NA (PORCINE) 40 MG/0.4 ML DISP.SYRIN SQ SCH (10:03)
[2023-05-23] MEDS: CEFTRIAXONE 2 GM in DEXTROSE 5%-WATER 100 ML IVPB SCH (10:03)
[2023-05-23 12:54] LABS: ANISOCYTOSIS 3+; MACROCYTOSIS 0
[2023-05-23] MEDS ORDERED: FAMOTIDINE 20 MG/50 ML IVPB 20 MG/50 ML MG IVPB ONE (14:21)
[2023-05-23] MEDS ORDERED: ACETAMINOPHEN 325 MG TABLET (FP) PO PRN (17:18)
[2023-05-23] MEDS ORDERED: traMADol HCL 50 MG TABLET PO PRN (17:18)
[2023-05-23] MEDS: LIDOCAINE 4% PATCH TP SCH (18:15)
[2023-05-23] MEDS: LIDOCAINE PATCH REMOVAL MC SCH (22:14)
[2023-05-24 04:37] VITALS: RESP 18
[2023-05-24 10:08] LABS: BASO % 1.2 % (0-2.0); HEMATOCRIT 28.5 % (35.4-49); HEMOGLOBIN 9.2 GM/dL (11.7-16.9); LYMPH % 26.5 % (8-40); MCH 26.9 pg (25.7-33.7); MCHC 32.3 g/dl (32.0-35.9); MEAN CELL VOLUME 83.4 fl (80-96); MEAN PLT VOLUME 8.5 fl (7.5-11.1); MONO % 13.7 % (3.8-10.2); NEUT % 54.6 % (42.8-82.8); PLATELET COUNT 287 10^3/uL (134-434); RBC 3.42 M/mm3 (4.00-5.60); RDW 23.7 % (11.9-15.9); WHITE BLOOD COUNT 4.8 K/mm3 (4.0-10.0)
[2023-05-24] MEDS: FOLIC ACID 1 MG TABLET (FP) PO SCH (10:22)
[2023-05-24] MEDS: PANTOPRAZOLE 20 MG TABLET PO SCH (10:22)
[2023-05-24] MEDS: COLCHICINE 0.6 MG TAB PO SCH ×2 (10:22→22:28)
[2023-05-24] MEDS: THIAMINE HCL 100 MG TABLET (FP) PO SCH (10:22)
[2023-05-24] MEDS: amLODIPine BESYLATE 10 MG TABLET (FP) PO SCH (10:22)
[2023-05-24] MEDS: NAPH,MB-DB/K PH,MBDB POWDER PACKET PO SCH ×2 (10:22→22:27)
[2023-05-24] MEDS: ASPIRIN COATED 81 MG TABLET.EC PO SCH (10:22)
[2023-05-24] MEDS: METOPROLOL TARTRATE 50 MG TABLET (FP) PO SCH ×2 (10:22→22:00)
[2023-05-24] MEDS: MAGNESIUM OXIDE 400 MG TABLET (FP) PO SCH ×2 (10:22→22:25)
[2023-05-24 10:23] LABS: POTASSIUM 3.6 mmol/L (3.5-5.1)
[2023-05-24] MEDS: LIDOCAINE 4% PATCH TP SCH (10:23)
[2023-05-24] MEDS: ENOXAPARIN NA (PORCINE) 40 MG/0.4 ML DISP.SYRIN SQ SCH (10:23)
[2023-05-24] MEDS: levETIRAcetam 500 MG TABLET (FP) PO SCH ×2 (10:23→22:24)
[2023-05-24 10:32] LABS: ALBUMIN 2.4 g/dl (3.4-5.0); BLOOD UREA NITROGEN 3.8 mg/dL (7-18); CALCIUM 8.9 mg/dL (8.5-10.1)
[2023-05-24 10:35] LABS: CREATININE 0.9 mg/dL (0.55-1.3); PHOSPHOROUS 3.8 mg/dL (2.5-4.9)
[2023-05-24 10:37] LABS: BILIRUBIN,TOTAL 0.3 mg/dL (0.2-1); TOT PROT 6.2 g/dl (6.4-8.2)
[2023-05-24 21:39] VITALS: TEMP 98.8
[2023-05-24] MEDS: LIDOCAINE PATCH REMOVAL MC SCH (22:31)
[2023-05-25 04:55] VITALS: BP 138/86; PULSE 54
[2023-05-25] MEDS: LIDOCAINE 4% PATCH TP SCH (09:53)
[2023-05-25] MEDS: COLCHICINE 0.6 MG TAB PO SCH (09:53)
[2023-05-25] MEDS: THIAMINE HCL 100 MG TABLET (FP) PO SCH (09:53)
[2023-05-25] MEDS: ASPIRIN COATED 81 MG TABLET.EC PO SCH (09:53)
[2023-05-25] MEDS: ENOXAPARIN NA (PORCINE) 40 MG/0.4 ML DISP.SYRIN SQ SCH (09:53)
[2023-05-25] MEDS: METOPROLOL TARTRATE 50 MG TABLET (FP) PO SCH (09:54)
[2023-05-25] MEDS: PANTOPRAZOLE 20 MG TABLET PO SCH (09:54)
[2023-05-25] MEDS: amLODIPine BESYLATE 10 MG TABLET (FP) PO SCH (09:54)
[2023-05-25] MEDS: MAGNESIUM OXIDE 400 MG TABLET (FP) PO SCH (09:54)
[2023-05-25] MEDS: FOLIC ACID 1 MG TABLET (FP) PO SCH (09:54)
[2023-05-25] MEDS: levETIRAcetam 500 MG TABLET (FP) PO SCH (09:54)
[2023-05-25 09:58] LABS: HEMATOCRIT 29.8 % (35.4-49); HEMOGLOBIN 9.6 GM/dL (11.7-16.9); MCH 26.9 pg (25.7-33.7); MCHC 32.3 g/dl (32.0-35.9); MEAN CELL VOLUME 83.2 fl (80-96); MEAN PLT VOLUME 8.9 fl (7.5-11.1); PLATELET COUNT 313 10^3/uL (134-434); RBC 3.58 M/mm3 (4.00-5.60); RDW 23.5 % (11.9-15.9); WHITE BLOOD COUNT 4.3 K/mm3 (4.0-10.0)
[2023-05-25 10:19] LABS: POTASSIUM 3.5 mmol/L (3.5-5.1)
[2023-05-25 10:21] LABS: BLOOD UREA NITROGEN 5.5 mg/dL (7-18)
[2023-05-25 10:24] LABS: URIC ACID 6.1 mg/dL (2.6-7.2)
== END 2023-05-25 14:22 | disposition home or self-care (01) | DRG 553 ==
LOC: JER 01:04 → JERBED 09:57 → J6S 11:50 → OBSVTOIN 05-23 09:56
PROVIDERS: ADMIT Internal Medicine; ATTEND Internal Medicine
PROC: 0S9D3ZZ Drainage of Left Knee Joint, Percutaneous Approach (ICD-10-PCS; principal; 2023-05-20)
DX: M10.062 Idiopathic gout, left knee (principal); I62.03 Nontraumatic chronic subdural hemorrhage; E78.00 Pure hypercholesterolemia, unspecified; M17.12 Unilateral primary osteoarthritis, left knee; E87.6 Hypokalemia; I10 Essential (primary) hypertension; N40.0 Benign prostatic hyperplasia without lower urinary tract symptoms; J44.9 Chronic obstructive pulmonary disease, unspecified; M25.462 Effusion, left knee; R56.9 Unspecified convulsions; E83.42 Hypomagnesemia; F10.90 Alcohol use, unspecified, uncomplicated; G47.33 Obstructive sleep apnea (adult) (pediatric); R29.6 Repeated falls; R50.9 Fever, unspecified; E83.39 Other disorders of phosphorus metabolism; M54.50 Low back pain, unspecified; M79.675 Pain in left toe(s); D64.9 Anemia, unspecified; I48.0 Paroxysmal atrial fibrillation
CPT/HCPCS: 0241U-QW; 36415; 73562-TC-LT-FY; 73630-TC-LT; 80048; 80053; 82962; 83735; 84100; 84550; 85025; 85027; 85610; 85651; 85730; 86140; 87040; 87070; 87075; 87205; 89060; 97116-GP; 99285-25; G0378

== ENCOUNTER 2023-06-24 13:36 | Observation (INO) | payer MEDICARE, OTHER ==
[2023-06-24 13:47] VITALS: BMI 25.0
[2023-06-24] MEDS ORDERED: ACETAMINOPHEN INJECTION 100 ML IVPB ONE (15:02)
[2023-06-24 15:18] LABS: BASO % 0.5 % (0-2.0); EOS % 0.1 % (0-4.5); HEMATOCRIT 34.7 % (35.4-49); HEMOGLOBIN 11.6 GM/dL (11.7-16.9); MCH 27.6 pg (25.7-33.7); MCHC 33.5 g/dl (32.0-35.9); MEAN CELL VOLUME 82.4 fl (80-96); MEAN PLT VOLUME 8.6 fl (7.5-11.1); MONO % 9.2 % (3.8-10.2); NEUT % 73.2 % (42.8-82.8); PLATELET COUNT 157 10^3/uL (134-434); RBC 4.21 M/mm3 (4.00-5.60); RDW 20.4 % (11.9-15.9); WHITE BLOOD COUNT 5.7 K/mm3 (4.0-10.0)
[2023-06-24] MEDS: ACETAMINOPHEN 1000 MG/100 ML BAG IVPB ONE (15:24)
[2023-06-24 15:27] LABS: INR 1.04 (0.83-1.09); PROTHROMBIN TIME (PATIENT) 12.1 SEC (9.7-13.0)
[2023-06-24 15:29] LABS: ACTIVATED PTT 27.5 SECONDS (25.2-36.5)
[2023-06-24 15:44] LABS: POTASSIUM 3.2 mmol/L (3.5-5.1)
[2023-06-24 15:51] LABS: CALCIUM 9.3 mg/dL (8.5-10.1)
[2023-06-24 15:52] LABS: ALBUMIN 3.6 g/dl (3.4-5.0); BLOOD UREA NITROGEN 8.6 mg/dL (7-18)
[2023-06-24 15:55] LABS: BILIRUBIN,TOTAL 1.3 mg/dL (0.2-1); CREATININE 1.1 mg/dL (0.55-1.3); ERYTHROCYTE SEDIMENTATION RATE 28 mm/hr (0-20); TOT PROT 7.9 g/dl (6.4-8.2)
[2023-06-24] MEDS ORDERED: POTASSIUM CHLORIDE ORAL LIQUID 20 MEQ/15 ML ONE (16:12)
[2023-06-24] MEDS: POTASSIUM CHLORIDE ORAL LIQUID 20 MEQ/15 ML PO ONE ×2 (16:16→22:39)
[2023-06-24 19:11] LABS: BF WBC & OTHER NUCLEATED CELLS 32308 /mm3
[2023-06-24 20:37] LABS: BODY FLUID MONOCYTE 6 %
[2023-06-24 21:53] LABS: MAGNESIUM 1.2 mg/dL (1.8-2.4)
[2023-06-24] MEDS: MAGNESIUM SULF 50% (8.12 MEQ/2 ML-1 GM VIAL) IVPB ONE (22:28)
[2023-06-24] MEDS: COLCHICINE 0.6 MG TAB PO ONE ×2 (22:39→23:37)
[2023-06-24] MEDS: ACETAMINOPHEN 1000 MG/100 ML BAG IVPB PRN (23:37)
[2023-06-24 23:42] LABS: PH,URINE 7.5 (5.0-8.0); URINE APPEARANCE CLEAR; URINE BILIRUBIN NEGATIVE (NEGATIVE); URINE COLOR YELLOW; URINE GLUCOSE (UA) NEGATIVE (NEGATIVE); URINE KETONE NEGATIVE (NEGATIVE); URINE LEUK ESTERASE NEGATIVE (NEGATIVE); URINE NITRITE NEGATIVE (NEGATIVE); URINE PROTEIN TRACE (NEGATIVE)
[2023-06-25 09:20] LABS: BASO % 0.6 % (0-2.0); EOS % 0.1 % (0-4.5); HEMATOCRIT 32.6 % (35.4-49); HEMOGLOBIN 10.7 GM/dL (11.7-16.9); LYMPH % 17.2 % (8-40); MCH 27.4 pg (25.7-33.7); MCHC 32.7 g/dl (32.0-35.9); MEAN CELL VOLUME 83.6 fl (80-96); MEAN PLT VOLUME 8.8 fl (7.5-11.1); MONO % 9.5 % (3.8-10.2); NEUT % 72.6 % (42.8-82.8); PLATELET COUNT 134 10^3/uL (134-434); RDW 19.6 % (11.9-15.9); WHITE BLOOD COUNT 6.4 K/mm3 (4.0-10.0)
[2023-06-25 09:23] LABS: CALCIUM 8.5 mg/dL (8.5-10.1)
[2023-06-25 09:24] LABS: BLOOD UREA NITROGEN 7.4 mg/dL (7-18)
[2023-06-25 09:27] LABS: CREATININE 0.9 mg/dL (0.55-1.3); PHOSPHOROUS 2.7 mg/dL (2.5-4.9); URIC ACID 6.4 mg/dL (2.6-7.2)
[2023-06-25] MEDS: ENOXAPARIN NA (PORCINE) 40 MG/0.4 ML DISP.SYRIN SQ SCH (09:27)
[2023-06-25] MEDS: THIAMINE HCL 100 MG TABLET (FP) PO SCH (09:27)
[2023-06-25] MEDS: NICOTINE 14 MG/24 HOURS TOPICAL PATCH TD SCH (09:27)
[2023-06-25] MEDS: FOLIC ACID 1 MG TABLET (FP) PO SCH (09:27)
[2023-06-25] MEDS: amLODIPine BESYLATE 10 MG TABLET (FP) PO SCH (09:27)
[2023-06-25] MEDS: METOPROLOL TARTRATE 50 MG TABLET (FP) PO SCH (09:27)
[2023-06-25 09:28] LABS: BILIRUBIN,TOTAL 1.3 mg/dL (0.2-1); TOT PROT 7.2 g/dl (6.4-8.2)
[2023-06-25 09:38] LABS: URIC ACID 6.4 mg/dL (2.6-7.2)
[2023-06-25 10:17] LABS: ERYTHROCYTE SEDIMENTATION RATE 95 mm/hr (0-20)
[2023-06-25] MEDS: POTASSIUM CHLORIDE ORAL LIQUID 20 MEQ/15 ML PO ONE (13:18)
[2023-06-25] MEDS: VANCOMYCIN/WATER FOR INJ (PEG) 1,000 MG/200 ML BAG IVPB ONE (17:57)
[2023-06-25] MEDS: traMADol HCL 50 MG TABLET PO PRN (17:58)
[2023-06-25] MEDS: levETIRAcetam 250 MG TABLET PO SCH (21:38)
[2023-06-25] MEDS: POTASSIUM CHLORIDE TABS 20 MEQ TABLET.ER (FP) PO SCH (21:38)
[2023-06-26 08:55] LABS: POTASSIUM 3.7 mmol/L (3.5-5.1)
[2023-06-26 08:56] LABS: BLOOD UREA NITROGEN 9.8 mg/dL (7-18); CALCIUM 8.6 mg/dL (8.5-10.1); HEMATOCRIT 29.7 % (35.4-49); MCH 28.5 pg (25.7-33.7); MCHC 33.6 g/dl (32.0-35.9); MEAN CELL VOLUME 84.6 fl (80-96); MEAN PLT VOLUME 8.7 fl (7.5-11.1); PLATELET COUNT 130 10^3/uL (134-434); RDW 19.9 % (11.9-15.9)
[2023-06-26 08:59] LABS: CREATININE 0.9 mg/dL (0.55-1.3)
[2023-06-26] MEDS: COLCHICINE 0.6 MG CAP PO SCH (10:12)
[2023-06-26] MEDS: LIDOCAINE 4% PATCH TP SCH (11:43)
[2023-06-26 21:03] VITALS: RESP 18
[2023-06-26] MEDS: LIDOCAINE PATCH REMOVAL MC SCH (21:31)
[2023-06-27 11:42] LABS: HEMATOCRIT 30.9 % (35.4-49); HEMOGLOBIN 10.3 GM/dL (11.7-16.9); MCH 28.2 pg (25.7-33.7); MCHC 33.3 g/dl (32.0-35.9); MEAN CELL VOLUME 84.7 fl (80-96); MEAN PLT VOLUME 8.4 fl (7.5-11.1); PLATELET COUNT 171 10^3/uL (134-434); RBC 3.64 M/mm3 (4.00-5.60); RDW 20.1 % (11.9-15.9); WHITE BLOOD COUNT 4.5 K/mm3 (4.0-10.0)
[2023-06-27 11:52] LABS: POTASSIUM 3.8 mmol/L (3.5-5.1)
[2023-06-27 11:53] LABS: CALCIUM 8.9 mg/dL (8.5-10.1)
[2023-06-27 11:54] LABS: BLOOD UREA NITROGEN 11.2 mg/dL (7-18)
[2023-06-27] MEDS: MAG HYDROX/AL HYDROX/SIMETH 30 ML UNIT-DOSE CUP PO ONE (14:07)
[2023-06-27] MEDS ORDERED: PANTOPRAZOLE 40 MG TABLET PO PRN (15:06)
[2023-06-28 10:00] LABS: HEMOGLOBIN 10.8 GM/dL (11.7-16.9); MCH 27.5 pg (25.7-33.7); MCHC 31.9 g/dl (32.0-35.9); MEAN CELL VOLUME 86.1 fl (80-96); MEAN PLT VOLUME 8.5 fl (7.5-11.1); PLATELET COUNT 210 10^3/uL (134-434); RBC 3.95 M/mm3 (4.00-5.60); RDW 19.8 % (11.9-15.9); WHITE BLOOD COUNT 3.8 K/mm3 (4.0-10.0)
[2023-06-28 10:27] LABS: POTASSIUM 3.9 mmol/L (3.5-5.1)
[2023-06-28 10:44] LABS: CALCIUM 9.7 mg/dL (8.5-10.1)
[2023-06-28 10:50] LABS: BLOOD UREA NITROGEN 11.9 mg/dL (7-18)
[2023-06-28 14:40] VITALS: BP 114/71; PULSE 63; TEMP 98.5
== END 2023-06-28 16:15 | disposition home or self-care (01) ==
LOC: JER 13:36 → JERBED 18:59 → J6S 19:43
PROVIDERS: ADMIT Internal Medicine; ATTEND Internal Medicine
PROC: 3E033NZ Introduction of Analgesics, Hypnotics, Sedatives into Peripheral Vein, Percutaneous Approach (ICD-10-PCS; principal; 2023-06-24)
PROC: 3E023GC Introduction of Other Therapeutic Substance into Muscle, Percutaneous Approach (ICD-10-PCS; 2023-06-24)
PROC: 3E033GC Introduction of Other Therapeutic Substance into Peripheral Vein, Percutaneous Approach (ICD-10-PCS; 2023-06-24)
PROC: 3E03329 Introduction of Other Anti-infective into Peripheral Vein, Percutaneous Approach (ICD-10-PCS; 2023-06-24)
DX: M25.462 Effusion, left knee (principal); E87.6 Hypokalemia; F10.99 Alcohol use, unspecified with unspecified alcohol-induced disorder; D50.0 Iron deficiency anemia secondary to blood loss (chronic); J44.9 Chronic obstructive pulmonary disease, unspecified; I10 Essential (primary) hypertension; M10.9 Gout, unspecified; I48.91 Unspecified atrial fibrillation; Z87.738 Personal history of other specified (corrected) congenital malformations of digestive system; E83.42 Hypomagnesemia; F17.200 Nicotine dependence, unspecified, uncomplicated
CPT/HCPCS: 36415; 73564-TC-LT-FY; 73718-TC-LT; 80048; 80053; 80307; 81003; 82728; 83540; 83550; 83735; 84100; 84550; 85025; 85027; 85610; 85651; 85730; 86140; 86618; 87040; 87070; 87075; 87205; 89060; 93005; 93010; 96365; 96372; 96375; 97116-GP; 97162-GP; 99285-25; G0378; J0131

== ENCOUNTER 2023-07-07 13:15 | Emergency (ER) | payer MEDICARE, OTHER ==
[2023-07-07 13:26] VITALS: BP 144/90; RESP 22; TEMP 97.6; BMI 25.0
[2023-07-07] MEDS ORDERED: predniSONE 20 MG TABLET (UD) ONE (14:45)
[2023-07-07] MEDS: predniSONE 20 MG TABLET (UD) PO ONE (14:49)
[2023-07-07 15:12] VITALS: PULSE 98
== END 2023-07-07 15:34 | disposition home or self-care (01) ==
LOC: JER 13:15
DX: M25.562 Pain in left knee (principal); M19.90 Unspecified osteoarthritis, unspecified site
CPT/HCPCS: 99283-25

== ENCOUNTER 2023-07-08 23:06 | Inpatient (IN) | payer MEDICARE, OTHER ==
[2023-07-09 01:02] LABS: BASO % 0.7 % (0-2.0); HEMATOCRIT 33.3 % (35.4-49); HEMOGLOBIN 10.8 GM/dL (11.7-16.9); LYMPH % 11.6 % (8-40); MCH 27.4 pg (25.7-33.7); MCHC 32.4 g/dl (32.0-35.9); MEAN CELL VOLUME 84.8 fl (80-96); MEAN PLT VOLUME 7.9 fl (7.5-11.1); MONO % 4.1 % (3.8-10.2); NEUT % 83.6 % (42.8-82.8); PLATELET COUNT 341 10^3/uL (134-434); RBC 3.93 M/mm3 (4.00-5.60); RDW 19.3 % (11.9-15.9); WHITE BLOOD COUNT 9.7 K/mm3 (4.0-10.0)
[2023-07-09 01:13] LABS: POTASSIUM 3.5 mmol/L (3.5-5.1)
[2023-07-09 01:17] LABS: CALCIUM 9.5 mg/dL (8.5-10.1)
[2023-07-09 01:18] LABS: BLOOD UREA NITROGEN 14.8 mg/dL (7-18)
[2023-07-09 01:20] LABS: CREATININE 1.4 mg/dL (0.55-1.3)
[2023-07-09 01:22] LABS: BILIRUBIN,TOTAL 0.3 mg/dL (0.2-1)
[2023-07-09 01:23] LABS: EPI CELLS 6 /uL (0-25.1); HYALINE CASTS 1 /uL (0-3.1); PH,URINE 5.5 (5.0-8.0); URINE APPEARANCE CLEAR; URINE BACTERIA 3 /uL (0-1359); URINE BILIRUBIN NEGATIVE (NEGATIVE); URINE COLOR YELLOW; URINE GLUCOSE (UA) NEGATIVE (NEGATIVE); URINE KETONE TRACE (NEGATIVE); URINE LEUK ESTERASE NEGATIVE (NEGATIVE); URINE NITRITE NEGATIVE (NEGATIVE); URINE PROTEIN NEGATIVE (NEGATIVE); URINE RBC 9 /uL (0-23.9); URINE UROBILINOGEN 0.2 mg/dL (0.2-1.0); URINE WBC 3 /uL (0-25.8)
[2023-07-09 01:58] LABS: ALBUMIN 3.6 g/dl (3.4-5.0)
[2023-07-09] MEDS ORDERED: THIAMINE HCL 200 MG/2 ML VIAL IVPB ONE (04:14)
[2023-07-09] MEDS: POTASSIUM CHLORIDE 10 MEQ in DEXTROSE 5%-NORMAL SALINE 1,000 ML IVPB SCH (04:58)
[2023-07-09] MEDS: SODIUM CHLORIDE 0.9% 500 ML INFUS.BAG IV ONE (06:05)
[2023-07-09] MEDS ORDERED: THIAMINE HCL 200 MG/2 ML VIAL ONE (06:14)
[2023-07-09] MEDS: THIAMINE HCL 200 MG/2 ML VIAL IVPB ONE (06:15)
[2023-07-09 08:39] LABS: VENOUS O2 SATURATION 84.9 % (70-80); VENOUS PCO2 31.9 mmHg (38-52); VENOUS PH 7.356 (7.310-7.410)
[2023-07-09 09:02] LABS: POTASSIUM 3.9 mmol/L (3.5-5.1)
[2023-07-09 09:04] LABS: CALCIUM 9.3 mg/dL (8.5-10.1)
[2023-07-09 09:05] LABS: ALBUMIN 3.4 g/dl (3.4-5.0)
[2023-07-09 09:09] LABS: BILIRUBIN,TOTAL 0.4 mg/dL (0.2-1); TOT PROT 7.6 g/dl (6.4-8.2)
[2023-07-09] MEDS ORDERED: ACETAMINOPHEN 1000 MG/100 ML BAG IVPB PRN (12:05)
[2023-07-09 12:45] LABS: COCAINE, UR NEGATIVE (NEGATIVE); METHADONE, UR NEGATIVE (NEGATIVE); OPIATES, URI NEGATIVE (NEGATIVE); URINE BARBITURATES NEGATIVE (NEGATIVE)
[2023-07-09] MEDS: DEXTROSE 5%-0.45% SALINE 1,000 ML IV SCH (12:45)
[2023-07-09 12:46] LABS: PHENCYCLIDINE,URINE NEGATIVE (NEGATIVE); URINE AMPHETAMINES NEGATIVE (NEGATIVE); URINE BENZODIAZEPINES NEGATIVE (NEGATIVE)
[2023-07-09] MEDS: METHYL SALICYLATE/MENTHOL OINT 30 GM TUBE TP SCH (13:32)
[2023-07-09] MEDS ORDERED: NICOTINE 14 MG/24 HOURS TOPICAL PATCH TD ONE (15:01)
[2023-07-09] MEDS: NICOTINE 14 MG/24 HOURS TOPICAL PATCH TD SCH (15:07)
[2023-07-09] MEDS: levETIRAcetam 250 MG TABLET PO SCH (21:57)
[2023-07-09] MEDS: traMADol HCL 50 MG TABLET PO PRN (21:58)
[2023-07-09] MEDS ORDERED: levETIRAcetam 500 MG TABLET (FP) PO SCH (22:00)
[2023-07-09] MEDS ORDERED: METOPROLOL TARTRATE 50 MG TABLET (FP) PO SCH (22:00)
[2023-07-09] MEDS: METOPROLOL TARTRATE 50 MG TABLET (FP) PO SCH (22:02)
[2023-07-09 22:34] VITALS: BMI 24.0
[2023-07-10] MEDS: COLCHICINE 0.6 MG CAPSULE PO SCH (01:37)
[2023-07-10 07:53] LABS: BASO % 0.3 % (0-2.0); EOS % 0.2 % (0-4.5); HEMATOCRIT 33.7 % (35.4-49); HEMOGLOBIN 10.9 GM/dL (11.7-16.9); LYMPH % 21.9 % (8-40); MCH 27.2 pg (25.7-33.7); MCHC 32.4 g/dl (32.0-35.9); MEAN PLT VOLUME 9.4 fl (7.5-11.1); MONO % 4.1 % (3.8-10.2); NEUT % 73.5 % (42.8-82.8); PLATELET COUNT 248 10^3/uL (134-434); RBC 4.02 M/mm3 (4.00-5.60); RDW 19.8 % (11.9-15.9); WHITE BLOOD COUNT 7.3 K/mm3 (4.0-10.0)
[2023-07-10 08:11] LABS: POTASSIUM 3.2 mmol/L (3.5-5.1)
[2023-07-10 08:13] LABS: ALBUMIN 3.4 g/dl (3.4-5.0); CALCIUM 9.2 mg/dL (8.5-10.1); MAGNESIUM 1.6 mg/dL (1.8-2.4)
[2023-07-10 08:14] LABS: BLOOD UREA NITROGEN 7.6 mg/dL (7-18)
[2023-07-10 08:16] LABS: CREATININE 0.8 mg/dL (0.55-1.3); PHOSPHOROUS 2.3 mg/dL (2.5-4.9)
[2023-07-10 08:18] LABS: BILIRUBIN,TOTAL 0.9 mg/dL (0.2-1); TOT PROT 7.7 g/dl (6.4-8.2)
[2023-07-10] MEDS: POTASSIUM CHLORIDE ORAL LIQUID 20 MEQ/15 ML PO ONE ×2 (09:20→17:55)
[2023-07-10] MEDS: MAGNESIUM SULF 50% (8.12 MEQ/2 ML-1 GM VIAL) IVPB ONE (09:20)
[2023-07-10] MEDS: FOLIC ACID 1 MG TABLET (FP) PO SCH (09:21)
[2023-07-10] MEDS: amLODIPine BESYLATE 10 MG TABLET (FP) PO SCH (09:21)
[2023-07-10] MEDS: ALLOPURINOL 100 MG TABLET (FP) PO SCH (09:21)
[2023-07-10] MEDS: THIAMINE HCL 100 MG TABLET (FP) PO SCH (09:22)
[2023-07-10] MEDS: FAMOTIDINE 20 MG TABLET PO ONE (22:44)
[2023-07-11 07:26] LABS: HEMATOCRIT 32.6 % (35.4-49); HEMOGLOBIN 10.9 GM/dL (11.7-16.9); MCH 27.6 pg (25.7-33.7); MCHC 33.5 g/dl (32.0-35.9); MEAN CELL VOLUME 82.4 fl (80-96); MEAN PLT VOLUME 9.4 fl (7.5-11.1); PLATELET COUNT 177 10^3/uL (134-434); RBC 3.96 M/mm3 (4.00-5.60); RDW 19.3 % (11.9-15.9); WHITE BLOOD COUNT 6.4 K/mm3 (4.0-10.0)
[2023-07-11 07:37] LABS: POTASSIUM 3.8 mmol/L (3.5-5.1)
[2023-07-11 07:59] LABS: ALBUMIN 2.9 g/dl (3.4-5.0); BLOOD UREA NITROGEN 7.9 mg/dL (7-18); CALCIUM 8.8 mg/dL (8.5-10.1); MAGNESIUM 1.9 mg/dL (1.8-2.4)
[2023-07-11 08:02] LABS: CREATININE 0.9 mg/dL (0.55-1.3); PHOSPHOROUS 1.7 mg/dL (2.5-4.9)
[2023-07-11 08:03] LABS: BILIRUBIN,TOTAL 0.7 mg/dL (0.2-1); TOT PROT 6.9 g/dl (6.4-8.2)
[2023-07-11] MEDS: POTASSIUM PHOSPHATE 45 MM in DEXTROSE 5%-WATER - 500 ML IVPB ONE (14:41)
[2023-07-11] MEDS: SODIUM CHLORIDE 0.45% 1,000 ML IV SCH (21:03)
[2023-07-11] MEDS: traMADol HCL 50 MG TABLET PO PRN (21:07)
[2023-07-12 08:07] LABS: HEMATOCRIT 31.4 % (35.4-49); HEMOGLOBIN 10.2 GM/dL (11.7-16.9); MCH 27.3 pg (25.7-33.7); MCHC 32.5 g/dl (32.0-35.9); MEAN CELL VOLUME 83.9 fl (80-96); MEAN PLT VOLUME 9.5 fl (7.5-11.1); PLATELET COUNT 146 10^3/uL (134-434); RBC 3.74 M/mm3 (4.00-5.60); WHITE BLOOD COUNT 5.6 K/mm3 (4.0-10.0)
[2023-07-12 08:33] LABS: POTASSIUM 3.5 mmol/L (3.5-5.1)
[2023-07-12 08:39] LABS: ALBUMIN 2.9 g/dl (3.4-5.0); CALCIUM 8.8 mg/dL (8.5-10.1); MAGNESIUM 1.8 mg/dL (1.8-2.4)
[2023-07-12 08:40] LABS: BLOOD UREA NITROGEN 9.7 mg/dL (7-18)
[2023-07-12 08:42] LABS: PHOSPHOROUS 4.7 mg/dL (2.5-4.9)
[2023-07-12 08:43] LABS: CREATININE 0.9 mg/dL (0.55-1.3)
[2023-07-12 08:44] LABS: BILIRUBIN,TOTAL 0.5 mg/dL (0.2-1); TOT PROT 6.6 g/dl (6.4-8.2)
[2023-07-12 14:53] VITALS: BP 122/90; PULSE 68; RESP 19; TEMP 97.9
== END 2023-07-12 15:13 | disposition home or self-care (01) | DRG 897 ==
LOC: JER 23:06 → JERBED 07-09 11:53 → J4W 07-09 21:42
PROVIDERS: ADMIT Internal Medicine; ATTEND Internal Medicine
DX: F10.129 Alcohol abuse with intoxication, unspecified (principal); E87.29 Other acidosis; M62.82 Rhabdomyolysis; I10 Essential (primary) hypertension; I48.0 Paroxysmal atrial fibrillation; J44.9 Chronic obstructive pulmonary disease, unspecified; R55 Syncope and collapse; G40.909 Epilepsy, unspecified, not intractable, without status epilepticus; Y90.8 Blood alcohol level of 240 mg/100 ml or more; M10.9 Gout, unspecified; F17.210 Nicotine dependence, cigarettes, uncomplicated; M25.511 Pain in right shoulder; M25.562 Pain in left knee; M25.561 Pain in right knee; M25.571 Pain in right ankle and joints of right foot; W06.XXXA Fall from bed, initial encounter; Y92.092 Bedroom in other non-institutional residence as the place of occurrence of the external cause; Y99.9 Unspecified external cause status
CPT/HCPCS: 36415; 70450-TC; 72125-TC; 72170-TC-FY; 73030-TC-RT-FY; 73502-TC-RT-FY; 73564-TC-LT-FY; 73564-TC-RT-FY; 73610-TC-RT-FY; 73630-TC-RT-FY; 80053; 80177; 80307; 81003; 82550; 82553; 82803; 83735; 84100; 84484; 85025; 85027; 87086; 93005; 93010; 97116-GP; 97161-GP; 99283-25; 99285-25

== ENCOUNTER 2023-07-26 15:16 | Observation (INO) | payer MEDICARE, OTHER ==
[~2023-07-26 15:16] MED LIST: LORazepam 2 MG TABLET PO SCH
[2023-07-26] MEDS ORDERED: ACETAMINOPHEN INJECTION 100 ML IVPB ONE (17:00)
[2023-07-26 17:02] LABS: BASO % 0.8 % (0-2.0); EOS % 0.6 % (0-4.5); HEMATOCRIT 31.7 % (35.4-49); HEMOGLOBIN 10.5 GM/dL (11.7-16.9); LYMPH % 17.5 % (8-40); MCH 27.7 pg (25.7-33.7); MCHC 33.2 g/dl (32.0-35.9); MEAN CELL VOLUME 83.4 fl (80-96); MEAN PLT VOLUME 8.1 fl (7.5-11.1); MONO % 16.3 % (3.8-10.2); NEUT % 64.8 % (42.8-82.8); PLATELET COUNT 256 10^3/uL (134-434); RDW 19.9 % (11.9-15.9); WHITE BLOOD COUNT 8.6 K/mm3 (4.0-10.0)
[2023-07-26] MEDS: ACETAMINOPHEN 1000 MG/100 ML BAG IVPB ONE (17:03)
[2023-07-26 17:09] LABS: INR 1.03 (0.83-1.09); PROTHROMBIN TIME (PATIENT) 11.9 SEC (9.7-13.0)
[2023-07-26 17:18] LABS: POTASSIUM 3.7 mmol/L (3.5-5.1)
[2023-07-26 17:20] LABS: CALCIUM 9.1 mg/dL (8.5-10.1)
[2023-07-26 17:21] LABS: ALBUMIN 3.3 g/dl (3.4-5.0); BLOOD UREA NITROGEN 12.8 mg/dL (7-18)
[2023-07-26 17:23] LABS: CREATININE 1.1 mg/dL (0.55-1.3)
[2023-07-26 17:25] LABS: BILIRUBIN,TOTAL 0.5 mg/dL (0.2-1); TOT PROT 7.1 g/dl (6.4-8.2)
[2023-07-26] MEDS ORDERED: oxyCODONE HCL 5 MG TABLET ONE (19:13)
[2023-07-26] MEDS: oxyCODONE HCL 5 MG TABLET PO ONE (19:18)
[2023-07-26] MEDS ORDERED: LORazepam 1 MG TABLET PO PRN (23:20)
[2023-07-27] VITALS: BMI 25.5
[2023-07-27] MEDS ORDERED: LORazepam 1 MG TABLET PO PRN (00:25)
[2023-07-27] MEDS: LIDOCAINE HCL 5% TOP OINTMENT 50 GM TUBE TP ONE (01:42)
[2023-07-27] MEDS ORDERED: LORazepam 1 MG TABLET PO SCH (05:00)
[2023-07-27] MEDS: LORazepam 1 MG TABLET PO SCH (05:59)
[2023-07-27 07:58] LABS: BASO % 0.4 % (0-2.0); EOS % 0.6 % (0-4.5); HEMATOCRIT 30.1 % (35.4-49); HEMOGLOBIN 9.9 GM/dL (11.7-16.9); LYMPH % 16.4 % (8-40); MCH 27.5 pg (25.7-33.7); MEAN CELL VOLUME 83.5 fl (80-96); MEAN PLT VOLUME 8.6 fl (7.5-11.1); MONO % 12.6 % (3.8-10.2); PLATELET COUNT 261 10^3/uL (134-434); RBC 3.61 M/mm3 (4.00-5.60); RDW 19.9 % (11.9-15.9); WHITE BLOOD COUNT 7.7 K/mm3 (4.0-10.0)
[2023-07-27 08:17] LABS: CALCIUM 9.3 mg/dL (8.5-10.1)
[2023-07-27 08:18] LABS: ALBUMIN 2.9 g/dl (3.4-5.0); BLOOD UREA NITROGEN 11.6 mg/dL (7-18); MAGNESIUM 1.9 mg/dL (1.8-2.4)
[2023-07-27 08:20] LABS: PHOSPHOROUS 3.7 mg/dL (2.5-4.9)
[2023-07-27 08:21] LABS: TOT PROT 6.8 g/dl (6.4-8.2)
[2023-07-27 08:24] LABS: BILIRUBIN,TOTAL 0.5 mg/dL (0.2-1)
[2023-07-27] MEDS: FOLIC ACID 1 MG TABLET (FP) PO SCH (09:50)
[2023-07-27] MEDS: ALLOPURINOL 100 MG TABLET (FP) PO SCH (09:50)
[2023-07-27] MEDS: METOPROLOL TARTRATE 50 MG TABLET (FP) PO SCH (09:50)
[2023-07-27] MEDS: POTASSIUM CHLORIDE ORAL LIQUID 20 MEQ/15 ML PO ONE ×2 (09:50→10:14)
[2023-07-27] MEDS: THIAMINE HCL 100 MG TABLET (FP) PO SCH (09:50)
[2023-07-27] MEDS: amLODIPine BESYLATE 10 MG TABLET (FP) PO SCH (09:50)
[2023-07-27] MEDS: ENOXAPARIN NA (PORCINE) 40 MG/0.4 ML DISP.SYRIN SQ SCH (09:50)
[2023-07-27] MEDS: NICOTINE 14 MG/24 HOURS TOPICAL PATCH TD SCH (09:50)
[2023-07-27] MEDS: COLCHICINE 0.6 MG TAB PO ONE (09:51)
[2023-07-27] MEDS ORDERED: levETIRAcetam 500 MG TABLET (FP) PO SCH (10:00)
[2023-07-27] MEDS: METHYL SALICYLATE/MENTHOL OINT 30 GM TUBE TP SCH (10:29)
[2023-07-27] MEDS: ACETAMINOPHEN 1000 MG/100 ML BAG IVPB PRN (11:37)
[2023-07-27] MEDS: COLCHICINE 0.6 MG TAB PO SCH (11:38)
[2023-07-28] MEDS ORDERED: LORazepam 0.5 MG TABLET PO PRN
[2023-07-28] MEDS ORDERED: LORazepam 1 MG TABLET PO SCH (05:00)
[2023-07-28] MEDS ORDERED: LORazepam 0.5 MG TABLET PO SCH (05:00)
[2023-07-28] MEDS: COLCHICINE 0.6 MG TAB PO ONE (07:42)
[2023-07-28] MEDS: PANTOPRAZOLE 20 MG TABLET PO SCH (09:06)
[2023-07-28 10:04] LABS: HEMATOCRIT 30.4 % (35.4-49); HEMOGLOBIN 9.9 GM/dL (11.7-16.9); MCH 27.1 pg (25.7-33.7); MCHC 32.5 g/dl (32.0-35.9); MEAN CELL VOLUME 83.5 fl (80-96); MEAN PLT VOLUME 8.7 fl (7.5-11.1); PLATELET COUNT 258 10^3/uL (134-434); RBC 3.64 M/mm3 (4.00-5.60); RDW 19.4 % (11.9-15.9); WHITE BLOOD COUNT 7.7 K/mm3 (4.0-10.0)
[2023-07-28 10:24] LABS: POTASSIUM 3.8 mmol/L (3.5-5.1)
[2023-07-28 10:37] LABS: CALCIUM 9.3 mg/dL (8.5-10.1)
[2023-07-28 10:38] LABS: ALBUMIN 2.9 g/dl (3.4-5.0); BLOOD UREA NITROGEN 10.8 mg/dL (7-18)
[2023-07-28 10:41] LABS: CREATININE 0.9 mg/dL (0.55-1.3)
[2023-07-28 10:43] LABS: BILIRUBIN,TOTAL 1.2 mg/dL (0.2-1); TOT PROT 6.7 g/dl (6.4-8.2)
[2023-07-28] MEDS: FAMOTIDINE 20 MG TABLET PO ONE (20:10)
[2023-07-29] MEDS ORDERED: LORazepam 0.5 MG TABLET PO PRN
[2023-07-29] MEDS ORDERED: LORazepam 0.5 MG TABLET PO SCH (05:00)
[2023-07-29] MEDS ORDERED: LORazepam 0.5 MG TABLET PO ONE (05:00)
[2023-07-29 08:29] LABS: HEMATOCRIT 31.4 % (35.4-49); MCH 26.6 pg (25.7-33.7); MCHC 31.7 g/dl (32.0-35.9); MEAN CELL VOLUME 83.9 fl (80-96); MEAN PLT VOLUME 8.6 fl (7.5-11.1); PLATELET COUNT 280 10^3/uL (134-434); RBC 3.74 M/mm3 (4.00-5.60); RDW 19.9 % (11.9-15.9)
[2023-07-29 09:23] LABS: POTASSIUM 3.8 mmol/L (3.5-5.1)
[2023-07-29 09:34] LABS: CALCIUM 8.8 mg/dL (8.5-10.1)
[2023-07-29 09:35] LABS: ALBUMIN 2.8 g/dl (3.4-5.0); BILIRUBIN,TOTAL 0.5 mg/dL (0.2-1)
[2023-07-29 09:37] LABS: BLOOD UREA NITROGEN 12.9 mg/dL (7-18)
[2023-07-29 09:38] LABS: TOT PROT 6.7 g/dl (6.4-8.2)
[2023-07-29 09:39] LABS: PHOSPHOROUS 4.1 mg/dL (2.5-4.9)
[2023-07-29 09:40] LABS: BILIRUBIN,DIRECT 0.2 mg/dL (0.0-0.2)
[2023-07-30] MEDS ORDERED: LORazepam 0.5 MG TABLET PO ONE (05:00)
[2023-07-31 04:26] VITALS: RESP 18
[2023-07-31 12:54] VITALS: BP 115/71; PULSE 69; TEMP 98.1
== END 2023-07-31 12:56 | disposition home or self-care (01) ==
LOC: JER 15:16 → JERBED 21:46 → UNDOADMOB 21:46 → INTOOBSV 23:16 → OBSVTOIN 23:16 → JERBED 23:42 → J6S 23:42 → JERBED 07-28 11:23 → J6S 07-28 11:23
PROVIDERS: ADMIT Internal Medicine; ATTEND Internal Medicine
PROC: 3E023GC Introduction of Other Therapeutic Substance into Muscle, Percutaneous Approach (ICD-10-PCS; principal; 2023-07-28)
DX: M10.9 Gout, unspecified (principal); M25.562 Pain in left knee; I48.0 Paroxysmal atrial fibrillation; M25.462 Effusion, left knee; J44.9 Chronic obstructive pulmonary disease, unspecified; I10 Essential (primary) hypertension; Z72.0 Tobacco use; F10.99 Alcohol use, unspecified with unspecified alcohol-induced disorder; K21.9 Gastro-esophageal reflux disease without esophagitis; N40.0 Benign prostatic hyperplasia without lower urinary tract symptoms; G47.33 Obstructive sleep apnea (adult) (pediatric)
CPT/HCPCS: 36415; 73562-TC-LT-FY; 80053; 82248; 83735; 84100; 84550; 85025; 85027; 85610; 85651; 86140; 93005; 93010; 96372; 96374; 96376; 97116-GP; 97161-GP; 99285-25; G0378; J0131